=== PATIENT | female | born 1940 | race Caucasian/White ===

== ENCOUNTER 2019-09-15 13:44 | Inpatient (IN) | payer OTHER ==
--- NOTE | 2019-09-15 14:08 | PDOC ---
History of Present Illness - General Chief Complaint: Pain, Acute Stated Complaint: ABD PAIN/SWOLLEN LEGS Time Seen by Provider: 09/15/19 14:08 - History of Present Illness Initial Comments: 09/15/19 15:29 78 year old woman with a history of DM, hypothyroidism ,HTN, HLD, fibrmyalgia, asthma, arthritis who presents with 2 months of swelling in the bilateral legs and abdomen with 40 pound weight gain. The patient also reports some vaginal and rectal pain for 2 months. She denies any other complaints. Denies chest pain or shortness of breath. Patient takes hydrocodone 7.5 8x a day for fibromyalgia pain PCP: Dr. Kristen FERNANDEZ GENERAL/CONSTITUTIONAL: No fever or chills. No weakness. CARDIOVASCULAR: No chest pain or shortness of breath RESPIRATORY: No cough, wheezing, or hemoptysis. GASTROINTESTINAL: No nausea, vomiting, diarrhea or constipation. GENITOURINARY: No dysuria, frequency, or change in urination. MUSCULOSKELETAL: No joint or muscle swelling or pain. No neck or back pain. SKIN: No rash NEUROLOGIC: No headache, vertigo, loss of consciousness, or change in strength/ sensation. ENDOCRINE: No increased thirst. + abnormal weight change . PE GENERAL: Awake, alert, and fully oriented, in no acute distress HEAD: No signs of trauma, normocephalic, atraumatic EYES: EOMI, sclera anicteric, conjunctiva clear ENT: oropharynx clear without exudates. Moist mucosa NECK: Normal ROM, supple LUNGS: No distress, speaks full sentences, clear to auscultation bilaterally HEART: Regular rate and rhythm, normal S1 and S2, no murmurs, rubs or gallops, peripheral pulses normal and equal bilaterally. ABDOMEN: Soft, + 1+ edema, abd distention, firmness on suprapubic abd BREST: L breast dimpling EXTREMITIES : + 2+ pitting edema from feet to abdomen NEUROLOGICAL: Cranial nerves II through XII grossly intact. Normal speech, no focal sensorimotor deficits SKIN: Warm, Dry, normal turgor, no rashes or lesions noted GENITAL: labia majora edema, no external masses visualized RECTAL: No external hemorrhoids, good rectal tone, no masses palpated posteriorly or anteriorly on digital exam MDM DDX including but not limited to: anasarca consider mass vs electrolyte derangement r/o cardiac dysfunction ED Course: ekg with vent rate of 59bpm with complete heart block See attending note for discussion with Cardiology Dr. Kumar pacers placed, atropine ordered and at bedside patient currently hemodynamically stable case discussed with ICU [employer], will see patient CXR with L breast mass and R sided infiltrate ceftriaxone and azithromycin dosed Lisa Quevedo, PGY2 Emergency Medicine 09/15/19 16:23 09/15/19 16:26 Past History - Past Medical History Allergies/Adverse Reactions: Allergies Allergy/AdvReac Type Severity Reaction Status Date / Time No Known Allergies Allergy Verified 09/15/19 13:49 Home Medications: Ambulatory Orders Benazepril HCl [Lotensin] 40 mg PO DAILY 09/15/19 Diltiazem Cd [Cardizem Cd -] 120 mg PO DAILY 09/15/19 Hydrochlorothiazide [Hctz -] 25 mg PO DAILY 09/15/19 Levothyroxine [Synthroid -] 175 mcg PO DAILY 09/15/19 Metformin HCl [Glucophage] 0 mg PO BID 09/15/19 - Psycho Social/Smoking Cessation Hx Smoking History: Never smoked Hx Alcohol Use: No Drug/Substance Use Hx: No *Physical Exam - Vital Signs Last Vital Signs Temp Pulse Resp BP Pulse Ox 97.5 F L 60 16 121/70 96 09/15/19 13:58 09/15/19 13:58 09/15/19 13:58 09/15/19 13:58 09/15/19 13:58 ED Treatment Course - LABORATORY CBC & Chemistry Diagram: 09/15/19 15:20 09/15/19 15:20 Critical Care Total Critical Care Time (in minutes): 90 Critical Care Statement: The care of this patient involved high complexity decision making to prevent further life threatening deterioration of the patient 's condition and/or to evaluate & treat vital organ system(s) failure or risk of failure.
--- NOTE | 2019-09-15 14:35 | PDOC ---
Attending Attestation - Resident Resident Name: Lisa Quevedo - ED Attending Attestation I have performed the following: I have examined & evaluated the patient, The case was reviewed & discussed with the resident, I agree w/resident's findings & plan, Exceptions are as noted - HPI HPI: 09/15/19 16:00 78yo female with hx of htn, dm, asthma, hypothyroidism with worsening edema to the le and her abd. Pt c/o lower abd pressure and discomfort and swelling. States mammograms utd, denies vaginal bleeding or discharge. Denies dysuria. No n/v/d. C/o sob today - pt tachypnic. Pt denies cough. No f/c. States 40lb wt gain over the last 2 months. Pt denies cp. - Physicial Exam PE: 09/15/19 16:05 Gen: aaox3, tachypnic, mild resp distress heent: MMM, EOMI, no icterus neck: supple heart: +s1s2 reg lungs: coarse bs b/l bases, tachypnea abd: soft, pitting edema to above the umbilicus, mass palpated in the lower abd , pitting edema of the vulva externally ext: 4+ pitting edema to LE b/l - Critical Care Time Total Critical Care Time: 60 Critical Care Statement: The care of this patient involved high complexity decision making to prevent further life threatening deterioration of the patient 's condition and/or to evaluate & treat vital organ system(s) failure or risk of failure. - Medical Decision Making 09/15/19 16:08 a/p: 78yo female with sob and swelling from abd to toes -anasarca on exam -pelvic mass palpated - concern for poss ca -will send labs, ekg, cxr, CT abd/pelvis with iv contrast -duplex ultrasound LE -pt will need admission 09/15/19 16:13 EKG shows complete heart block - case discussed with Dr. Kumar who agrees with zol pads, checking tsh, electrolytes, ICU admission, no pacing at this time as the patient is hemodynamically stable resident discussed the case with ICU. 09/15/19 16:15 no elevated wbc hgb stable 09/15/19 16:16 RLL infilatre on cxr L breast mass on xray 09/15/19 16:18 ua neg 09/15/19 16:35 elevated tsh, free t4 will send for ct c/a/p with contrast for further eval 09/15/19 17:55 pt with anasarca ascites on ct, L breast mass on cxr, pna, chb - pt will need icu admission microblog sent to [facility] for admission 09/15/19 18:15 resident discussed the case with [facility] who accepts pt to service 09/15/19 19:16 pt with ascites and cirrhosis on ct pt admitted to the ICU Heart Score/ECG Review - ECG Intrepretation Comment:: 09/15/19 16:14 chb at 59, l axis, q waves septally, abnl ekg
[2019-09-15] MEDS ORDERED: ACETAMINOPHEN 1000 MG/100 ML VIAL (NON FORMULARY) IVPB ONE (15:31)
[2019-09-15] MEDS ORDERED: ATROPINE SULFATE 1 MG/10 ML DISP.SYRIN IVPUSH ONE (15:32)
[2019-09-15] MEDS ORDERED: ATROPINE SULFATE 1 MG/10 ML DISP.SYRIN ONE (15:33)
[2019-09-15] MEDS ORDERED: ACETAMINOPHEN INJECTION 100 ML IVPB ONE (15:34)
[2019-09-15 15:35] LABS: VENOUS PC02 44.4 mmHg (38-52); VENOUS PH 7.37 (7.31-7.41)
[2019-09-15 15:36] LABS: VENOUS PO2 < 49 mmHg (28-48)
[2019-09-15 15:40] LABS: BASO % 1.1 % (0-2.0); HEMATOCRIT 35.7 % (32.4-45.2); HEMOGLOBIN 12.4 GM/dL (10.7-15.3); LYMPH % 13.2 % (8-40); MCH 34.1 pg (25.7-33.7); MCHC 34.6 g/dl (32.0-36.0); MEAN CELL VOLUME 98.4 fl (80-96); MEAN PLT VOLUME 8.8 fl (7.5-11.1); MONO % 4.5 % (3.8-10.2); NEUT % 80.2 % (42.8-82.8); PLATELET COUNT 284 K/MM3 (134-434); RBC 3.63 M/mm3 (3.60-5.2); WHITE BLOOD COUNT 7.8 K/mm3 (4.0-10.0)
[2019-09-15 15:56] LABS: INR 1.03 (0.83-1.09); PROTHROMBIN TIME (PATIENT) 12.2 SEC (9.7-13.0)
[2019-09-15] MEDS ORDERED: morphine CARPU-JECT 2 MG/1 ML DISP.SYRIN IVPUSH ONE (15:58)
[2019-09-15 15:59] LABS: ACTIVATED PTT 34.2 SECONDS (25.2-36.5)
[2019-09-15 16:14] LABS: EPI CELLS 0.3 /HPF (0-5/HPF); HYALINE CASTS 0 /lpf (0-8); URINE APPEARANCE CLEAR; URINE BACTERIA 0.7 /hpf (NEGATIVE); URINE BILIRUBIN NEGATIVE (NEGATIVE); URINE COLOR YELLOW; URINE GLUCOSE (UA) NEGATIVE (NEGATIVE); URINE KETONE NEGATIVE (NEGATIVE); URINE LEUK ESTERASE NEGATIVE (NEGATIVE); URINE NITRITE NEGATIVE (NEGATIVE); URINE PROTEIN 2+ (NEGATIVE); URINE RBC 1 /hpf (0-4); URINE UROBILINOGEN 0.2 mg/dL (0.2-1.0); URINE WBC 0 /hpf (0-5)
[2019-09-15] MEDS ORDERED: MORPHINE SULFATE 2 MG/ML VIAL ONE (16:15)
[2019-09-15] MEDS ORDERED: CEFTRIAXONE 1 GM in DEXTROSE 5%-WATER - 50 ML IVPB ONE (16:15)
[2019-09-15] MEDS ORDERED: AZITHROMYCIN IVPB 500 MG in DEXTROSE 5%-WATER - 250 ML IVPB ONE (16:16)
[2019-09-15 16:24] LABS: ALBUMIN 2.9 g/dl (3.4-5.0); BILIRUBIN,TOTAL 0.6 mg/dL (0.2-1); BLOOD UREA NITROGEN 30.4 mg/dL (7-18); CALCIUM 8.6 mg/dL (8.5-10.1); MAGNESIUM 2.1 mg/dL (1.8-2.4); PHOSPHOROUS 3.9 mg/dL (2.5-4.9); POTASSIUM 5.6 mmol/L (3.5-5.1); TOT PROT 7.1 g/dl (6.4-8.2)
[2019-09-15] MEDS ORDERED: CEFTRIAXONE 1 GM/50 ML BAG ONE (16:26)
[2019-09-15] MEDS ORDERED: AZITHROMYCIN IVPB 500 MG/250 ML BAG IVPB ONE (16:50)
[2019-09-15 17:25] LABS: ALBUMIN 2.9 g/dl (3.4-5.0); BILIRUBIN,TOTAL 0.4 mg/dL (0.2-1); BLOOD UREA NITROGEN 29.3 mg/dL (7-18); CALCIUM 8.5 mg/dL (8.5-10.1); POTASSIUM 4.2 mmol/L (3.5-5.1)
[2019-09-15] MEDS ORDERED: LOSARTAN POTASSIUM 50 MG TABLET (FP) PO ONE (18:11)
[2019-09-15] MEDS ORDERED: HYDROCHLOROTHIAZIDE 25 MG TABLET (FP) PO SCH (18:15)
[2019-09-15] MEDS ORDERED: METOCLOPRAMIDE HCL 10 MG TABLET (FP) PO PRN (18:59)
[2019-09-15] MEDS ORDERED: FUROSEMIDE 40 MG/4 ML INJECTABLE VIAL ONE (19:04)
[2019-09-15] MEDS: FUROSEMIDE 40 MG/4 ML INJECTABLE VIAL IVPUSH SCH (19:10)
[2019-09-15] MEDS ORDERED: LOSARTAN POTASSIUM 50 MG TABLET (FP) ONE (19:12)
[2019-09-15 19:15] LABS: ARTERIAL BLD GAS O2 SATURATION 95.3 % (95-98); ARTERIAL BLOOD GAS BASE EXCESS -2.8 meq/l (-2-2); ARTERIAL BLOOD GAS PCO2 40.1 mmHg (35-45); ARTERIAL BLOOD GAS PO2 84.5 mmHg (80-100); ARTERIAL BLOOD GAS pH 7.36 (7.35-7.45); CARBOXYHEMOGLOBIN 1.4 % (0-2)
[2019-09-15 19:16] LABS: ALLENS TEST POSITIVE
--- NOTE | 2019-09-15 19:53 | HP ---
Admitting History and Physical - Primary Care Physician PCP: aMnas Espitia - Admission Chief Complaint: Generalized edema, shortness of breath History of Present Illness: 78 year old woman with a history of DM II (on metformin), hypothyroidism ,HTN, HLD, fibromyalgia, asthma, osteoarthritis presents to ED with c/o body aches, rapid weight gain (25lbs in 1mth) and SOB. Ms. Calvillo reports significant weight loss 2-3 months ago, followed by rapid water retention associated with mild shortness of breath over the last 60days. Her volume overload and dyspnea worsened and included chest discomfort, lower back pain and reduced ability to perform ADLs, therefore, she decided to present to ED for evaluation. She denies N/V/D/ fever/chills. No sick contacts or recent travel. In ED: vitals: HR 56bpm, BP196/76, RR 26. O2 sat 96% 2L NC. Ekg:L SB- vent rate of 59bpm with complete heart block, Cardiology (Dr. Kumar ) consulted. Recommend ICu admission with pacers pads in place, atropine at bedside CXR with mild congestive findings and some atelectasis or infiltrate at the right base; pt dosed ceftriaxone and azithromycin. CT abd with constrast ordered to evaluate for pelvic mass on exam AB.36/40/84.5/22/95% TSH 32, T4F 1.2 Trop neg, CK-MB 3.7 BNP 1220 pt ordered for lasix 40mg Q8hrs and nebs for c/o SOB History Source: Patient Limitations to Obtaining History: Clinical Condition, Poor Historian - Past Medical History Cardiovascular: Yes: HTN Pulmonary: Yes: Asthma Reproductive: Yes: Postmenopausal ...: No Musculoskeletal: Yes: Chronic low back pain, Osteoarthritis Rheumatology: Yes: Fibromyalgia Endocrine: Yes: Diabetes Mellitus, Hypothyroidism - Past Surgical History Past Surgical History: Yes: Cholecystectomy - Advance Directives Advance Directives: Yes: Health Care Proxy (daughter: Susan Calvillo ) - Smoking History Smoking history: Never smoked Have you smoked in the past 12 months: Yes Aproximately how many cigarettes per day: 20 (1PPD x 50yrs) - Alcohol/Substance Use Hx Alcohol Use: No History of Substance Use: reports: None - Social History Usual Living Arrangement: Yes: Alone ADL: Independent Occupation: retired History of Recent Travel: No Other Social History: Born in [place] Home Medications - Allergies Allergies/Adverse Reactions: Allergies Allergy/AdvReac Type Severity Reaction Status Date / Time No Known Allergies Allergy Verified 09/15/19 13:49 - Home Medications Home Medications: Ambulatory Orders Benazepril HCl [Lotensin] 40 mg PO DAILY 09/15/19 Diltiazem Cd [Cardizem Cd -] 120 mg PO DAILY 09/15/19 Hydrochlorothiazide [Hctz -] 25 mg PO DAILY 09/15/19 Levothyroxine [Synthroid -] 175 mcg PO DAILY 09/15/19 Metformin HCl [Glucophage] 0 mg PO BID 09/15/19 Family Medical History Family Hx Cardiac Disorders: Mother ( age 67) Family Hx Diabetes: Mother (Father (60s) Leukemia) Other Family History: Brother (30s) Liver disease. Brother ( 50s0 Liver diease. sister (66) Alzheimers Review of Systems - Review of Systems Constitutional: reports: Lethargy, Weakness Eyes: reports: No Symptoms HENT: reports: Nasal Congestion Neck: reports: No Symptoms Cardiovascular: reports: Chest Pain, Edema, Shortness of Breath Respiratory: reports: Cough, SOB, Wheezing Gastrointestinal: reports: Abdominal Pain Genitourinary: reports: No Symptoms Breasts: reports: No Symptoms Reported Musculoskeletal: reports: Back Pain, Joint Pain, Muscle Weakness Integumentary: reports: Erythema Neurological: reports: Weakness Endocrine: reports: Unexplained Weight Gain Physical Examination Vital Signs: Vital Signs Temperature 97.5 F L 09/15/19 13:58 Pulse Rate 50 L 09/15/19 19:11 Respiratory Rate 21 H 09/15/19 19:11 Blood Pressure 179/93 H 09/15/19 19:11 O2 Sat by Pulse Oximetry (%) 97 09/15/19 19:11 Constitutional: Yes: Anxious, Mild Distress Eyes: Yes: Conjunctiva Clear, PERRL HENT: Yes: Atraumatic, Normocephalic Neck: Yes: Supple Cardiovascular: Yes: Bradycardia, S1, S2 Respiratory: Yes: Cough, On Nasal O2, SOB, Wheezes Gastrointestinal: Yes: Ascites, Hyperactive Bowel Sounds, Tenderness ...Rectal Exam: Yes: Deferred Renal/: Yes: Wiggins Present Musculoskeletal: Yes: Muscle Weakness Extremities: Yes: Cool, Erythema (RLE) Edema: Yes Edema: LLE: 3+, RLE: 3+ Peripheral Pulses WNL: Yes Peripheral Pulses: Left Radial: 2+, Right Radial: 2+, Left Doralis Pedis: 2+, Right Dorsalis Pedis: 2+, Left Femoral: 2+, Right Femoral: 2+ Integumentary: Yes: Erythema (suprapubic tenderness) Neurological: Yes: Alert, Oriented ...Motor Strength: WNL Psychiatric: Yes: Alert, Oriented Labs: CBC, BMP 09/15/19 15:20 09/15/19 16:30 Imaging - Results Chest X-ray: Report Reviewed (CXR 09/15/2019 Chest: Fluid overload Single AP view of the chest reveals a large heart, sclerotic knob, intact bones and soft tissues, mild congestive findings and some atelectasis or infiltrate at the right base. The angles are sharp and the soft tissues are intact. There is slight elevation of the right hemidiaphragm. There is a focal area of increased density in the left breast. Exact nature of this is unclear. Correlation recommended. There are no prior studies for comparison. Follow-up recommended.) Cat Scan: Report Reviewed (CTA chest/abd/pelvis 09/15/2019 (Report obtained via Fax from imaging socially responsible investment adviser) Impression: No thoracic aortic aneurysm or mediastinal hematoma found. No Pulm embolism seen. Scattered mild atelectasis and ground glass opacities. Moderate right pleural effusion. no RP hematoma seen. Diffuse body wall edema. Ascites present Heterogenous liver with lobulated liver, consider cirrhosis and cannot exclude liver masses. Dilated portal vein 17mm and umbilical veins seen, compatible with portal hypertension. GB not well seen. CBD appears dialted up to 15mm. Mild RP adenopathy Read by Dr. Leighton Cooper.) EKG: Report Reviewed (EKG 09/15/2019 SB 59bpm, CHB, low voltage, PRWP.) Problem List - Problems (1) Volume overload Assessment/Plan: Lasix 40mg TID, goal net neg 1-1.5L daily daily CXR wiggins care and maintenance strict intake and output daily 6am weights Echo ordered cardiology consulted Problems reviewed: Yes Code(s): E87.70 - FLUID OVERLOAD, UNSPECIFIED (2) Prophylactic measure Assessment/Plan: H2B daily Heparin SC TID OOB to chair as tolerated Bowel regimen with senna/colace reglan PRN nausea/vomiting Code(s): Z29.9 - ENCOUNTER FOR PROPHYLACTIC MEASURES, UNSPECIFIED (3) HTN (hypertension) Assessment/Plan: Hold cardizem and GILMER, elevated BP is most likely compensatory trend BPs off meds Code(s): I10 - ESSENTIAL (PRIMARY) HYPERTENSION (4) DMII (diabetes mellitus, type 2) Assessment/Plan: hold metformin Fingerstick ACHS insulin SS diabetic-cardiac diet lipid panel and A1c with AM labs Code(s): E11.9 - TYPE 2 DIABETES MELLITUS WITHOUT COMPLICATIONS (5) Heart block, AV Assessment/Plan: cardiology following Pacer pads on patient Atropine at bedside BP elevated, if pt with symptomatic HB can trial dopamine infusion continuous tele monitoring avoid sadiq agents Code(s): I44.30 - UNSPECIFIED ATRIOVENTRICULAR BLOCK (6) Asthma Assessment/Plan: duonebs q6hrs Code(s): J45.909 - UNSPECIFIED ASTHMA, UNCOMPLICATED (7) Hypothyroidism Assessment/Plan: TSH 32, endo consulted Synthroid increased to 200mcg from 175mcg Code(s): E03.9 - HYPOTHYROIDISM, UNSPECIFIED (8) Atelectasis of right lung Assessment/Plan: zosyn q8hrs Azith 250mg IVPB x 4 more days send sputum culture Code(s): J98.11 - ATELECTASIS (9) Tobacco dependence Assessment/Plan: smoking cessation discussed with patient Code(s): F17.200 - NICOTINE DEPENDENCE, UNSPECIFIED, UNCOMPLICATED (10) Chronic pain Assessment/Plan: Tylenol PRN moderate pain Morphine PRN severe pain PT evaluation when stable Problems reviewed: Yes Code(s): G89.29 - OTHER CHRONIC PAIN Assessment/Plan Codes status: FUll Pt requires inpatient ICU care Visit type - Emergency Visit Emergency Visit: Yes ED Registration Date: 09/15/19 Care time: The patient presented to the Emergency Department on the above date and was hospitalized for further evaluation of their emergent condition. - New Patient This patient is new to me today: Yes Date on this admission: 09/16/19 - Critical Care Critical Care patient: Yes Total Critical Care Time (in minutes): 70 Critical Care Statement: The care of this patient involved high complexity decision making to prevent further life threatening deterioration of the patient 's condition and/or to evaluate & treat vital organ system(s) failure or risk of failure.
[2019-09-15] MEDS ORDERED: SODIUM CHLORIDE NASAL SPRAY 44 ML BOTTLE NS PRN (20:07)
--- NOTE | 2019-09-15 20:43 | CONSULT ---
Consult - text type - Consultation Consultation Note: PULMONARY/CRITICAL CARE CONSULT NOTE: HPI: Briefly, 78 F DM2, hypothyroid, HTN, asthma, OA, fibromyalgia and chronic pain presented to ED with increased SOB and LE edema. Found to be in CHB with HR in 50s. BP was normal, trop neg, e-lytes normal, TFTs normal, temp normal. She has a R pleural effusion and was started on abx, however there are no clinical signs of pneumonia. She had a palpable pelvic mass and the plan was for abdomen and pelvic imaging - yet to be done. Cardiology was consulted. She was admitted to the ICU for monitoring. Current Medications Acetaminophen (Tylenol -) 650 mg PO Q6H PRN PRN Reason: PAIN LEVEL 4 - 6 Albuterol/Ipratropium (Duoneb -) 1 amp NEB RQID CARLOS Chlorhexidine Gluconate (Hibiclens For Decolonization -) 1 applic TP HS CARLOS Docusate Sodium (Colace -) 100 mg PO BID CARLOS Famotidine (Pepcid -) 20 mg PO DAILY [facility] Furosemide (Lasix Injection -) 40 mg IVPUSH 0600,1400,2000 [facility] Last Admin: 09/15/19 19:10 Dose: 40 mg Heparin Sodium (Porcine) (Heparin -) 5,000 unit SQ TID [facility] Azithromycin 250 mg/ Dextrose 250 mls @ 250 mls/hr IVPB DAILY ONE Stop: 09/16/19 09:59 Piperacillin Sod/Tazobactam (Sod 3.375 gm/ Dextrose) 50 mls @ 100 mls/hr IVPB Q8H-IV [facility]; Protocol Piperacillin Sod/Tazobactam (Sod 3.375 gm/ Dextrose) 50 mls @ 100 mls/hr IVPB Q8H-IV [facility]; Protocol Stop: 09/16/19 10:29 Insulin Aspart (Novolog Vial Sliding Scale -) 1 vial SQ ACHS [facility]; Protocol Levothyroxine Sodium (Synthroid -) 200 mcg PO 0700 [facility] Losartan Potassium (Cozaar -) 50 mg PO DAILY [facility] Metoclopramide HCl (Reglan -) 10 mg PO TID PRN PRN Reason: NAUSEA AND/OR VOMITING Morphine Sulfate (Morphine Sulfate) 2 mg IVPUSH Q6H PRN PRN Reason: PAIN LEVEL 7 - 10 Mupirocin (Bactroban Ointment (For Decolonization) -) 1 applic NS BID CARLOS Stop: 09/20/19 21:59 Senna (Senna -) 2 tab PO HS CARLOS Sodium Chloride ([place]al [place] -) 2 spray NS TID PRN PRN Reason: NASAL CONGESTION Vital Signs Temp 97.5 F L 09/15/19 13:58 Pulse 50 L 09/15/19 19:11 Resp 21 H 09/15/19 19:11 BP 179/93 H 09/15/19 19:11 Pulse Ox 97 09/15/19 19:11 Intake & Output 09/15/19 09/15/19 09/16/19 06:59 18:59 05:59 Output Total 200 Balance -200 Weight 73.391 kg Output: Urine 200 Garg 200 Other: Height 5 ft Body Mass Index (BMI) 31.6 Weight Measurement Method Est/Stated by Patient EXAM: neuro: alert lungs: diminished abd: softly distended ext: edema skin: warm CBC, BMP 09/15/19 15:20 09/15/19 16:30 ASSESSMENT: CHB of unclear etiology DM2 Hypothyroid HTN Asthma OA Fibromyalgia Chronic pain PLAN: -Cardiology to see in AM -Will not have TVP - have pacing pads on and connected to monitor at all times -Atropine is not effective in CHB - will use external pacing and Dopa or Epi if decompensates -Consider stopping abx - do not believe she is infected. No infiltrate on CT. R pleural effusion may be related to pelvic/abdominal mass, ?malignant. -f/u abdomen/pelvic imaging -Continue home medications -DVT PPx Patient is critically ill Thank you for this interesting consult Lazarus Marcial Pulm/Critical Care INTERVENTIONAL CARDIOLOGIST
[2019-09-15] MEDS: ALBUTEROL SO4 2.5/IPRATROPIUM 0.5 INH SOL 3 ML VIAL.NEB. NEB SCH (20:53)
[2019-09-15] MEDS ORDERED: SENNOSIDES/DOCUSATE COMBO (SENNA PLUS) TABLET (UD) PO SCH (22:00)
[2019-09-15] MEDS: HEPARIN NA (PORCINE) 5,000 UNITS/ML 1ML VIAL SQ SCH (23:33)
[2019-09-15] MEDS: DOCUSATE SODIUM 100 MG CAPSULE (FP) PO SCH (23:34)
[2019-09-15] MEDS: MUPIROCIN 2% TOPICAL OINTMENT FOR DECOLONIZATION NS SCH (23:35)
[2019-09-15] MEDS: CHLORHEXIDINE GLUCONATE 4% CLEANSER FOR DECOLONIZATION TP SCH (23:35)
[2019-09-15] MEDS: SENNOSIDES 8.6MG TABLET (FP) PO SCH (23:36)
[2019-09-15] MEDS: INSULIN SLIDING SCALE (NOVOLOG) 1 VIAL SQ SCH (23:36)
[2019-09-16] MEDS: PIPERACILLIN/TAZOB 3.375 GM 3.375 GM in DEXTROSE 5%-WATER - 50 ML IVPB SCH ×2 (01:02→09:34)
[2019-09-16] MEDS ORDERED: PIPERACILLIN/TAZOBACTAM 3.375 GM VIAL IVPB ONE ×2 (01:29→08:42)
[2019-09-16] MEDS ORDERED: DEXTROSE 5%-WATER - 50 ML IVPB ONE ×2 (01:29→08:43)
[2019-09-16] MEDS ORDERED: PIPERACILLIN/TAZOB 3.375 GM 3.375 GM in DEXTROSE 5%-WATER - 50 ML IVPB SCH (02:00)
[2019-09-16] MEDS: MORPHINE SULFATE 2 MG/ML VIAL IVPUSH PRN ×4 (03:36→22:15)
[2019-09-16] MEDS ORDERED: hydrALAZINE HCL 20 MG/ML VIAL IVPUSH ONE (05:24)
[2019-09-16] MEDS: FUROSEMIDE 40 MG/4 ML INJECTABLE VIAL IVPUSH SCH ×3 (06:21→20:55)
[2019-09-16] MEDS: HEPARIN NA (PORCINE) 5,000 UNITS/ML 1ML VIAL SQ SCH ×3 (06:22→22:20)
[2019-09-16] MEDS: INSULIN SLIDING SCALE (NOVOLOG) 1 VIAL SQ SCH ×4 (06:23→22:41)
[2019-09-16] MEDS: LEVOTHYROXINE NA 200 MCG TABLET PO SCH (06:25)
[2019-09-16] MEDS: ALBUTEROL SO4 2.5/IPRATROPIUM 0.5 INH SOL 3 ML VIAL.NEB. NEB SCH ×4 (07:08→19:56)
[2019-09-16 07:54] LABS: INR 1.05 (0.83-1.09); PROTHROMBIN TIME (PATIENT) 12.4 SEC (9.7-13.0)
[2019-09-16 07:57] LABS: ACTIVATED PTT 33.9 SECONDS (25.2-36.5)
[2019-09-16 08:22] LABS: ALBUMIN 2.4 g/dl (3.4-5.0); BILIRUBIN,TOTAL 0.5 mg/dL (0.2-1); BLOOD UREA NITROGEN 24.6 mg/dL (7-18); CALCIUM 8.4 mg/dL (8.5-10.1); CREATININE 0.9 mg/dL (0.55-1.3); TOT PROT 5.8 g/dl (6.4-8.2)
[2019-09-16] MEDS ORDERED: PT OWN MED DRAWER 7, Y5N ONE (08:42)
[2019-09-16] MEDS ORDERED: AZITHROMYCIN IVPB 250 MG in DEXTROSE 5%-WATER - 250 ML IVPB ONE (09:00)
[2019-09-16] MEDS: DOCUSATE SODIUM 100 MG CAPSULE (FP) PO SCH ×2 (09:01→22:20)
[2019-09-16] MEDS: FAMOTIDINE 20 MG TABLET PO SCH (09:02)
[2019-09-16] MEDS: MUPIROCIN 2% TOPICAL OINTMENT FOR DECOLONIZATION NS SCH ×2 (09:02→22:20)
[2019-09-16] MEDS: AZITHROMYCIN IVPB 250 MG in DEXTROSE 5%-WATER - 250 ML IVPB SCH (09:17)
--- NOTE | 2019-09-16 09:46 | PN ---
Physical Exam: SUBJECTIVE: Patient seen and examined in the icu. eating breakfast. verbalizes shortness of breat with any physical movement. on 2-3 liters of oxygen. she smokes daily. has been told she had a mass in her left breast years ago, had a biopsy and was negative. spoke to daughter sebas and updated her. OBJECTIVE: Patient is a 78 year old female with a significant past medical history of current every day smoker, DM II (on metformin), hypothyroidism , hypertension, HLD, fibromyalgia, asthma, osteoarthritis presents to ED with c/o body aches, rapid weight gain and SOB. Patient reports significant weight loss 2-3 months ago, followed by rapid water retention associated with mild shortness of breath over the last 60 days. Her volume overload and dyspnea worsened and included chest discomfort and she presented to the ED for further evaluation. imaging: Ekg: L SB-vent rate of 59 bpm with complete heart block CXR with mild congestive findings and some atelectasis or infiltrate at the right base CT abd with contrast ordered and pending Vital Signs Period Temp Pulse Resp BP Sys/[place] Pulse Ox Last 24 Hr 97.5 F-98.4 F 50-71 12-64 121-200/49-95 96-99 GENERAL: The patient is awake, alert, and fully oriented, in mild respiratory distress HEAD: Normal with no signs of trauma. EYES: PERRL, extraocular movements intact, sclera anicteric, conjunctiva clear. No ptosis. ENT: Ears normal, nares patent, oropharynx clear without exudates, moist mucous membranes. NECK: Trachea midline, full range of motion, supple. LUNGS: fine crackles at bilateral bases. on 2 liters of supplemental oxygen HEART: Regular rate and rhythm, S1, S2 without murmur, rub or gallop. ABDOMEN: obese abdomen, likely has ascites, with a hard mass felt on RUQ. EXTREMITIES: edema +3 from upper thighs to ankles. NEUROLOGICAL: Normal speech, gait not observed. PSYCH: Normal mood, normal affect. SKIN: Warm, dry, normal turgor, no rashes or lesions noted Laboratory Results - last 24 hr 09/15/19 09/15/19 09/15/19 15:20 15:20 15:20 WBC 7.8 RBC 3.63 Hgb 12.4 Hct 35.7 MCV 98.4 H MCH 34.1 H MCHC 34.6 RDW 14.0 Plt Count 284 MPV 8.8 Absolute Neuts (auto) 6.2 Neutrophils % 80.2 Lymphocytes % 13.2 Monocytes % 4.5 Eosinophils % 1.0 Basophils % 1.1 Nucleated RBC % 0 ESR PT with INR 12.20 INR 1.03 PTT (Actin FS) 34.2 Anticoagulation Therapy Puncture Site ABG pH ABG pCO2 at Pt Temp ABG pO2 at Pt Temp ABG HCO3 ABG O2 Sat (Measured) ABG O2 Content ABG Base Excess [place] Test VBG pH POC VBG pCO2 POC VBG pO2 VBG HCO3 VBG O2 Sat (Lena) VBG Base Excess Carboxyhemoglobin Methemoglobin O2 Delivery Device Oxygen Flow Rate Vent Mode Vent Rate Mechanical Rate Pressure Support Vent Sodium Potassium Chloride Carbon Dioxide Anion Gap BUN Creatinine Est GFR (CKD-EPI)AfAm Est GFR (CKD-EPI)NonAf POC Glucometer Random Glucose Hemoglobin A1c % Lactic Acid Calcium Phosphorus Magnesium Total Bilirubin AST ALT Alkaline Phosphatase Creatine Kinase 178 Creatine Kinase Index 2.0 CK-MB (CK-2) 3.7 H Troponin I < 0.02 B-Natriuretic Peptide Total Protein Albumin Triglycerides Cholesterol Total LDL Cholesterol HDL Cholesterol TSH Free T4 Urine Color Urine Appearance Urine pH Ur Specific Vaughn Urine Protein Urine Glucose (UA) Urine Ketones Urine Blood Urine Nitrite Urine Bilirubin Urine Urobilinogen Ur Leukocyte Esterase Urine WBC (Auto) Urine RBC (Auto) Urine Casts (Auto) U Epithel Cells (Auto) Urine Bacteria (Auto) Blood Type Antibody Screen 09/15/19 09/15/19 09/15/19 15:20 15:20 15:20 WBC RBC Hgb Hct MCV MCH MCHC RDW Plt Count MPV Absolute Neuts (auto) Neutrophils % Lymphocytes % Monocytes % Eosinophils % Basophils % Nucleated RBC % ESR PT with INR INR PTT (Actin FS) Anticoagulation Therapy Puncture Site ABG pH ABG pCO2 at Pt Temp ABG pO2 at Pt Temp ABG HCO3 ABG O2 Sat (Measured) ABG O2 Content ABG Base Excess [place] Test VBG pH 7.37 POC VBG pCO2 44.4 POC VBG pO2 < 49 H VBG HCO3 24.8 VBG O2 Sat (Lena) 51.1 L VBG Base Excess -0.2 Carboxyhemoglobin Methemoglobin O2 Delivery Device Oxygen Flow Rate Vent Mode Vent Rate Mechanical Rate Pressure Support Vent Sodium 134 L Potassium 5.6 H Chloride 106 Carbon Dioxide 24 Anion Gap 4 L BUN 30.4 H Creatinine 1.0 Est GFR (CKD-EPI)AfAm 62.93 Est GFR (CKD-EPI)NonAf 54.30 POC Glucometer Random Glucose 194 H Hemoglobin A1c % Lactic Acid Calcium 8.6 Phosphorus 3.9 Magnesium 2.1 Total Bilirubin 0.6 AST 53 H ALT 30 Alkaline Phosphatase 233 H Creatine Kinase Creatine Kinase Index CK-MB (CK-2) Troponin I B-Natriuretic Peptide 1220.0 H Total Protein 7.1 Albumin 2.9 L Triglycerides Cholesterol Total LDL Cholesterol HDL Cholesterol TSH 32.80 H Free T4 Urine Color Urine Appearance Urine pH Ur Specific Vaughn Urine Protein Urine Glucose (UA) Urine Ketones Urine Blood Urine Nitrite Urine Bilirubin Urine Urobilinogen Ur Leukocyte Esterase Urine WBC (Auto) Urine RBC (Auto) Urine Casts (Auto) U Epithel Cells (Auto) Urine Bacteria (Auto) Blood Type A POSITIVE Antibody Screen Negative 09/15/19 09/15/19 09/15/19 16:04 16:30 19:03 WBC RBC Hgb Hct MCV MCH MCHC RDW Plt Count MPV Absolute Neuts (auto) Neutrophils % Lymphocytes % Monocytes % Eosinophils % Basophils % Nucleated RBC % ESR PT with INR INR PTT (Actin FS) Anticoagulation Therapy No Result Required. Puncture Site Left radial ABG pH 7.36 ABG pCO2 at Pt Temp 40.1 ABG pO2 at Pt Temp 84.5 ABG HCO3 21.9 L ABG O2 Sat (Measured) 95.3 ABG O2 Content 15.2 ABG Base Excess -2.8 L [place] Test Positive VBG pH POC VBG pCO2 POC VBG pO2 VBG HCO3 VBG O2 Sat (Lena) VBG Base Excess Carboxyhemoglobin 1.4 Methemoglobin < 1.0 O2 Delivery Device N/c Oxygen Flow Rate 2 Vent Mode No Result Required. Vent Rate No Result Required. Mechanical Rate No Result Required. Pressure Support Vent No Result Required. Sodium 138 Potassium 4.2 Chloride 104 Carbon Dioxide 25 Anion Gap 8 BUN 29.3 H Creatinine 1.0 Est GFR (CKD-EPI)AfAm 62.93 Est GFR (CKD-EPI)NonAf 54.30 POC Glucometer Random Glucose 181 H Hemoglobin A1c % Lactic Acid Calcium 8.5 Phosphorus Magnesium Total Bilirubin 0.4 AST 35 ALT 28 Alkaline Phosphatase 238 H Creatine Kinase Creatine Kinase Index CK-MB (CK-2) Troponin I B-Natriuretic Peptide Total Protein 7.0 Albumin 2.9 L Triglycerides Cholesterol Total LDL Cholesterol HDL Cholesterol TSH Free T4 1.20 Urine Color Yellow Urine Appearance Clear Urine pH 6.0 Ur Specific Vaughn 1.018 Urine Protein 2+ H Urine Glucose (UA) Negative Urine Ketones Negative Urine Blood Negative Urine Nitrite Negative Urine Bilirubin Negative Urine Urobilinogen 0.2 Ur Leukocyte Esterase Negative Urine WBC (Auto) 0 Urine RBC (Auto) 1 Urine Casts (Auto) 0 U Epithel Cells (Auto) 0.3 Urine Bacteria (Auto) 0.7 Blood Type Antibody Screen 09/15/19 09/15/19 09/15/19 20:01 20:01 20:01 WBC RBC Hgb Hct MCV MCH MCHC RDW Plt Count MPV Absolute Neuts (auto) Neutrophils % Lymphocytes % Monocytes % Eosinophils % Basophils % Nucleated RBC % ESR 79 H PT with INR INR PTT (Actin FS) Anticoagulation Therapy Puncture Site ABG pH ABG pCO2 at Pt Temp ABG pO2 at Pt Temp ABG HCO3 ABG O2 Sat (Measured) ABG O2 Content ABG Base Excess [place] Test VBG pH POC VBG pCO2 POC VBG pO2 VBG HCO3 VBG O2 Sat (Lena) VBG Base Excess Carboxyhemoglobin Methemoglobin O2 Delivery Device Oxygen Flow Rate Vent Mode Vent Rate Mechanical Rate Pressure Support Vent Sodium Potassium Chloride Carbon Dioxide Anion Gap BUN Creatinine Est GFR (CKD-EPI)AfAm Est GFR (CKD-EPI)NonAf POC Glucometer Random Glucose Hemoglobin A1c % Lactic Acid 1.2 Calcium Phosphorus Magnesium Total Bilirubin AST ALT Alkaline Phosphatase Creatine Kinase Creatine Kinase Index CK-MB (CK-2) Troponin I B-Natriuretic Peptide 1359.8 H Total Protein Albumin Triglycerides Cholesterol Total LDL Cholesterol HDL Cholesterol TSH Free T4 Urine Color Urine Appearance Urine pH Ur Specific [place] Urine Protein Urine Glucose (UA) Urine Ketones Urine Blood Urine Nitrite Urine Bilirubin Urine Urobilinogen Ur Leukocyte Esterase Urine WBC (Auto) Urine RBC (Auto) Urine Casts (Auto) U Epithel Cells (Auto) Urine Bacteria (Auto) Blood Type Antibody Screen 09/15/19 09/16/19 09/16/19 20:25 05:35 05:36 WBC RBC Hgb Hct MCV MCH MCHC RDW Plt Count MPV Absolute Neuts (auto) Neutrophils % Lymphocytes % Monocytes % Eosinophils % Basophils % Nucleated RBC % ESR PT with INR 12.40 INR 1.05 PTT (Actin FS) 33.9 Anticoagulation Therapy Puncture Site ABG pH ABG pCO2 at Pt Temp ABG pO2 at Pt Temp ABG HCO3 ABG O2 Sat (Measured) ABG O2 Content ABG Base Excess [place] Test VBG pH POC VBG pCO2 POC VBG pO2 VBG HCO3 VBG O2 Sat (Lena) VBG Base Excess Carboxyhemoglobin Methemoglobin O2 Delivery Device Oxygen Flow Rate Vent Mode Vent Rate Mechanical Rate Pressure Support Vent Sodium 138 Potassium 4.0 Chloride 106 Carbon Dioxide 25 Anion Gap 7 L BUN 24.6 H Creatinine 0.9 Est GFR (CKD-EPI)AfAm 71.48 Est GFR (CKD-EPI)NonAf 61.67 POC Glucometer Random Glucose 162 H Hemoglobin A1c % Lactic Acid Calcium 8.4 L Phosphorus Magnesium Total Bilirubin 0.5 AST 27 ALT 23 Alkaline Phosphatase 191 H Creatine Kinase Creatine Kinase Index CK-MB (CK-2) Troponin I 0.02 B-Natriuretic Peptide Total Protein 5.8 L Albumin 2.4 L Triglycerides 81 Cholesterol 154 Total LDL Cholesterol 87 HDL Cholesterol 59 TSH 31.70 H Free T4 Urine Color Urine Appearance Urine pH Ur Specific [place] Urine Protein Urine Glucose (UA) Urine Ketones Urine Blood Urine Nitrite Urine Bilirubin Urine Urobilinogen Ur Leukocyte Esterase Urine WBC (Auto) Urine RBC (Auto) Urine Casts (Auto) U Epithel Cells (Auto) Urine Bacteria (Auto) Blood Type A POSITIVE Antibody Screen 09/16/19 09/16/19 05:36 05:50 WBC RBC Hgb Hct MCV MCH MCHC RDW Plt Count MPV Absolute Neuts (auto) Neutrophils % Lymphocytes % Monocytes % Eosinophils % Basophils % Nucleated RBC % ESR PT with INR INR PTT (Actin FS) Anticoagulation Therapy Puncture Site ABG pH ABG pCO2 at Pt Temp ABG pO2 at Pt Temp ABG HCO3 ABG O2 Sat (Measured) ABG O2 Content ABG Base Excess [place] Test VBG pH POC VBG pCO2 POC VBG pO2 VBG HCO3 VBG O2 Sat (Lena) VBG Base Excess Carboxyhemoglobin Methemoglobin O2 Delivery Device Oxygen Flow Rate Vent Mode Vent Rate Mechanical Rate Pressure Support Vent Sodium Potassium Chloride Carbon Dioxide Anion Gap BUN Creatinine Est GFR (CKD-EPI)AfAm Est GFR (CKD-EPI)NonAf POC Glucometer 156 Random Glucose Hemoglobin A1c % 7.1 H Lactic Acid Calcium Phosphorus Magnesium Total Bilirubin AST ALT Alkaline Phosphatase Creatine Kinase Creatine Kinase Index CK-MB (CK-2) Troponin I B-Natriuretic Peptide Total Protein Albumin Triglycerides Cholesterol Total LDL Cholesterol HDL Cholesterol TSH Free T4 Urine Color Urine Appearance Urine pH Ur Specific [place] Urine Protein Urine Glucose (UA) Urine Ketones Urine Blood Urine Nitrite Urine Bilirubin Urine Urobilinogen Ur Leukocyte Esterase Urine WBC (Auto) Urine RBC (Auto) Urine Casts (Auto) U Epithel Cells (Auto) Urine Bacteria (Auto) Blood Type Antibody Screen Active Medications Generic Name Dose Route Start Last Admin Trade Name Freq PRN Reason Stop Dose Admin Acetaminophen 650 mg 09/15/19 18:13 Tylenol - PO Q6H PRN PAIN LEVEL 4 - 6 Albuterol/Ipratropium 1 amp 09/15/19 20:00 09/16/19 07:08 Duoneb - NEB 1 amp RQID CARLOS Administration Chlorhexidine Gluconate 1 applic 09/15/19 22:00 09/15/19 23:35 Hibiclens For Decolonization - TP 1 applic HS CARLOS Administration Docusate Sodium 100 mg 09/15/19 22:00 09/16/19 09:01 Colace - PO 100 mg BID CARLOS Administration Famotidine 20 mg 09/16/19 10:00 09/16/19 09:02 Pepcid - PO 20 mg DAILY CARLOS Administration Furosemide 40 mg 09/15/19 19:00 09/16/19 06:21 Lasix Injection - IVPUSH 40 mg 0600,1400,2000 CARLOS Administration Heparin Sodium (Porcine) 5,000 unit 09/15/19 22:00 09/16/19 06:22 Heparin - SQ 5,000 unit TID CARLOS Administration Piperacillin Sod/Tazobactam 50 mls @ 100 mls/hr 09/16/19 02:00 Sod 3.375 gm/ Dextrose IVPB Q8H-IV CARLOS Protocol Piperacillin Sod/Tazobactam 50 mls @ 100 mls/hr 09/16/19 02:00 09/16/19 09:34 Sod 3.375 gm/ Dextrose IVPB 09/16/19 10:29 100 mls/hr Q8H-IV CARLOS Administration Protocol Azithromycin 250 mg/ Dextrose 250 mls @ 250 mls/hr 09/16/19 10:00 09/16/19 09 :17 IVPB 250 mls/hr DAILY CARLOS Administration Insulin Aspart 1 vial 09/15/19 22:00 09/16/19 06:23 Novolog Vial Sliding Scale - SQ 2 units ACHS CARLOS Administration Protocol Levothyroxine Sodium 200 mcg 09/16/19 07:00 09/16/19 06:25 Synthroid - PO 200 mcg 0700 CARLOS Administration Losartan Potassium 50 mg 09/16/19 10:00 Cozaar - PO DAILY CARLOS Metoclopramide HCl 10 mg 09/15/19 18:59 Reglan - PO TID PRN NAUSEA AND/OR VOMITING Morphine Sulfate 2 mg 09/15/19 19:40 09/16/19 09:43 Morphine Sulfate IVPUSH 2 mg Q6H PRN Administration PAIN LEVEL 7 - 10 Mupirocin 1 applic 09/15/19 22:00 09/16/19 09:02 Bactroban Ointment (For Decolonization) - NS 09/20/19 21:59 1 applic BID CARLOS Administration Nicotine 21 mg 09/16/19 10:00 Nicoderm Patch - TD DAILY CARLOS Senna 2 tab 09/15/19 22:00 09/15/19 23:36 Senna - PO 2 tab HS CARLOS Administration Sodium Chloride 2 spray 09/15/19 20:07 [employer] Adel Nasal Adel - NS TID PRN NASAL CONGESTION ASSESSMENT/PLAN: Problem List - Problems (1) Volume overload Assessment/Plan: anasarca on lasix 80mg tid she has abdominal distention, ascites, bilateral lower lobe crackles and peripheral +3 edema. on supplemental oxygen monitor daily weights, strick intake and output abd ct scan pending echo monitor kidney function Code(s): E87.70 - FLUID OVERLOAD, UNSPECIFIED (2) Heart block, AV Assessment/Plan: Continue to avoid AV sadiq slowing agents c/w synthroid cardiac meds being held, monitor bp appreciate cardiology consultation Code(s): I44.30 - UNSPECIFIED ATRIOVENTRICULAR BLOCK (3) Asthma Assessment/Plan: not in acute exacerbation, shortness of breath likely secondary to volume overload on supplemental oxygen to maintains sats above 92%. Code(s): J45.909 - UNSPECIFIED ASTHMA, UNCOMPLICATED (4) Atelectasis of right lung Code(s): J98.11 - ATELECTASIS (5) Chronic pain Code(s): G89.29 - OTHER CHRONIC PAIN (6) DMII (diabetes mellitus, type 2) Assessment/Plan: monitor bgms, novolog ss Code(s): E11.9 - TYPE 2 DIABETES MELLITUS WITHOUT COMPLICATIONS (7) HTN (hypertension) Assessment/Plan: on lasix tid 80mg, BP improving with lasix. per cardiology stop home diltiazem , and hold all antihypertensive meds, but if needed avoid av sadiq blockers. Code(s): I10 - ESSENTIAL (PRIMARY) HYPERTENSION (8) Hypothyroidism Assessment/Plan: endocrinlogy consulted Code(s): E03.9 - HYPOTHYROIDISM, UNSPECIFIED (9) Tobacco dependence Code(s): F17.200 - NICOTINE DEPENDENCE, UNSPECIFIED, UNCOMPLICATED (10) Prophylactic measure Code(s): Z29.9 - ENCOUNTER FOR PROPHYLACTIC MEASURES, UNSPECIFIED Visit type - Emergency Visit Emergency Visit: Yes ED Registration Date: 09/15/19 Care time: The patient presented to the Emergency Department on the above date and was hospitalized for further evaluation of their emergent condition. - New Patient This patient is new to me today: Yes Date on this admission: 09/18/19 - Critical Care Critical Care patient: Yes Total Critical Care Time (in minutes): 40 Critical Care Statement: The care of this patient involved high complexity decision making to prevent further life threatening deterioration of the patient 's condition and/or to evaluate & treat vital organ system(s) failure or risk of failure.
[2019-09-16] MEDS ORDERED: LOSARTAN POTASSIUM 50 MG TABLET (FP) PO SCH (10:00)
--- NOTE | 2019-09-16 10:44 | PN ---
Progress Note (short form) - Note Progress Note: Progress note: Pt seen and examined by me in the ICU. In good good spirits and w/o complaints. ECG in am shows pt again in complete heart block and junctional rhythm. BP 130's /60's. Cardiology notified. Currently on NC 2L with O2 sat 100%. Transthoracic pacer pads in place. Endo consulted for elevated TSH. Current Medications Acetaminophen (Tylenol -) 650 mg PO Q6H PRN PRN Reason: PAIN LEVEL 4 - 6 Albuterol/Ipratropium (Duoneb -) 1 amp NEB RQID [facility] Last Admin: 09/16/19 07:08 Dose: 1 amp Chlorhexidine Gluconate (Hibiclens For Decolonization -) 1 applic TP HS [facility] Last Admin: 09/15/19 23:35 Dose: 1 applic Docusate Sodium (Colace -) 100 mg PO BID [facility] Last Admin: 09/16/19 09:01 Dose: 100 mg Famotidine (Pepcid -) 20 mg PO DAILY [facility] Last Admin: 09/16/19 09:02 Dose: 20 mg Furosemide (Lasix Injection -) 40 mg IVPUSH 0600,1400,2000 [facility] Last Admin: 09/16/19 06:21 Dose: 40 mg Heparin Sodium (Porcine) (Heparin -) 5,000 unit SQ TID [facility] Last Admin: 09/16/19 06:22 Dose: 5,000 unit Piperacillin Sod/Tazobactam (Sod 3.375 gm/ Dextrose) 50 mls @ 100 mls/hr IVPB Q8H-IV [facility]; Protocol Azithromycin 250 mg/ Dextrose 250 mls @ 250 mls/hr IVPB DAILY [facility] Last Admin: 09/16/19 09:17 Dose: 250 mls/hr Insulin Aspart (Novolog Vial Sliding Scale -) 1 vial SQ ACHS [facility]; Protocol Last Admin: 09/16/19 06:23 Dose: 2 units Levothyroxine Sodium (Synthroid -) 200 mcg PO 0700 [facility] Last Admin: 09/16/19 06:25 Dose: 200 mcg Losartan Potassium (Cozaar -) 50 mg PO DAILY [facility] Metoclopramide HCl (Reglan -) 10 mg PO TID PRN PRN Reason: NAUSEA AND/OR VOMITING Morphine Sulfate (Morphine Sulfate) 2 mg IVPUSH Q6H PRN PRN Reason: PAIN LEVEL 7 - 10 Last Admin: 09/16/19 09:43 Dose: 2 mg Mupirocin (Bactroban Ointment (For Decolonization) -) 1 applic NS BID CARLOS Stop: 09/20/19 21:59 Last Admin: 09/16/19 09:02 Dose: 1 applic Nicotine (Nicoderm Patch -) 21 mg TD DAILY CARLOS Senna (Senna -) 2 tab PO HS CARLOS Last Admin: 09/15/19 23:36 Dose: 2 tab Sodium Chloride ([place] Nasal [place] -) 2 spray NS TID PRN PRN Reason: NASAL CONGESTION Vital Signs Vital Signs Temperature 98.4 F 09/16/19 07:00 Pulse Rate 60 09/16/19 09:38 Respiratory Rate 16 09/16/19 09:38 Blood Pressure 165/74 09/16/19 09:38 O2 Sat by Pulse Oximetry (%) 97 09/16/19 07:32 Intake & Output 09/13/19 09/14/19 09/15/19 09/16/19 23:59 23:59 23:59 22:59 Intake Total 530 Output Total 2000 900 Balance -1470 -900 Weight 73.391 kg 84.912 kg EXAM: Neuro: alert, oriented Lungs: CTA, diminished base Abd: softly distended; + BS Ext: WWP; Trace edema; + pulse Skin: warm, intact CBC,CMP WBC 7.8 K/mm3 (4.0-10.0) 09/15/19 15:20 RBC 3.63 M/mm3 (3.60-5.2) 09/15/19 15:20 Hgb 12.4 GM/dL (10.7-15.3) 09/15/19 15:20 Hct 35.7 % (32.4-45.2) 09/15/19 15:20 MCV 98.4 fl (80-96) H 09/15/19 15:20 MCH 34.1 pg (25.7-33.7) H 09/15/19 15:20 MCHC 34.6 g/dl (32.0-36.0) 09/15/19 15:20 RDW 14.0 % (11.6-15.6) 09/15/19 15:20 Plt Count 284 K/MM3 (134-434) 09/15/19 15:20 MPV 8.8 fl (7.5-11.1) 09/15/19 15:20 Absolute Neuts (auto) 6.2 K/mm3 (1.5-8.0) 09/15/19 15:20 Neutrophils % 80.2 % (42.8-82.8) 09/15/19 15:20 Lymphocytes % 13.2 % (8-40) 09/15/19 15:20 Monocytes % 4.5 % (3.8-10.2) 09/15/19 15:20 Eosinophils % 1.0 % (0-4.5) 09/15/19 15:20 Basophils % 1.1 % (0-2.0) 09/15/19 15:20 Nucleated RBC % 0 % (0-0) 09/15/19 15:20 ESR 79 mm/hr (0-30) H 09/15/19 20:01 Sodium 138 mmol/L (136-145) 09/16/19 05:36 Potassium 4.0 mmol/L (3.5-5.1) 09/16/19 05:36 Chloride 106 mmol/L (98-107) 09/16/19 05:36 Carbon Dioxide 25 mmol/L (21-32) 09/16/19 05:36 Anion Gap 7 MMOL/L (8-16) L 09/16/19 05:36 BUN 24.6 mg/dL (7-18) H 09/16/19 05:36 Creatinine 0.9 mg/dL (0.55-1.3) 09/16/19 05:36 Est GFR (CKD-EPI)AfAm 71.48 09/16/19 05:36 Est GFR (CKD-EPI)NonAf 61.67 09/16/19 05:36 POC Glucometer 156 UNITS (80-120) 09/16/19 05:50 Random Glucose 162 mg/dL (74-106) H 09/16/19 05:36 Hemoglobin A1c % 7.1 % (4.2-6.3) H 09/16/19 05:36 Lactic Acid 1.2 mmol/L (0.4-2.0) 09/15/19 20:01 Calcium 8.4 mg/dL (8.5-10.1) L 09/16/19 05:36 Phosphorus 3.9 mg/dL (2.5-4.9) 09/15/19 15:20 Magnesium 2.1 mg/dL (1.8-2.4) 09/15/19 15:20 Total Bilirubin 0.5 mg/dL (0.2-1) 09/16/19 05:36 AST 27 U/L (15-37) 09/16/19 05:36 ALT 23 U/L (13-61) 09/16/19 05:36 Alkaline Phosphatase 191 U/L (45-117) H 09/16/19 05:36 Creatine Kinase 178 U/L (26-192) 09/15/19 15:20 Creatine Kinase Index 2.0 % (0.0-5.0) 09/15/19 15:20 CK-MB (CK-2) 3.7 ng/mL (0.5-3.6) H 09/15/19 15:20 Troponin I 0.02 ng/ml (0.00-0.05) 09/16/19 05:36 B-Natriuretic Peptide 1359.8 pg/ml (5-450) H 09/15/19 20:01 Total Protein 5.8 g/dl (6.4-8.2) L 09/16/19 05:36 Albumin 2.4 g/dl (3.4-5.0) L 09/16/19 05:36 Triglycerides 81 mg/dL (0-150) 09/16/19 05:36 Cholesterol 154 mg/dL (50-200) 09/16/19 05:36 Total LDL Cholesterol 87 mg/dL (5-100) 09/16/19 05:36 HDL Cholesterol 59 mg/dL (40-60) 09/16/19 05:36 TSH 31.70 uIU/ml (0.358-3.74) H 09/16/19 05:36 Free T4 1.20 ng/dl (0.76-1.46) 09/15/19 16:30 ASSESSMENT: CHB of unclear etiology DM2 Hypothyroid HTN Asthma OA Fibromyalgia Chronic pain PLAN: -Cardiology to see in AM -Endocrine consulted - have pacing pads on and connected to monitor at all times -Atropine is not effective in CHB - will use external pacing and Dopa or Epi if decompensates -If HD unstable-Dr Enmanuel Lozano to be notified for IVP placement -Consider stopping abx - do not believe she is infected. No infiltrate on CT. R pleural effusion may be related to pelvic/abdominal mass, ?malignant. -f/u abdomen/pelvic imaging -Continue home medications -DVT PPx Patient is critically ill Xuan Martínez, SAFETY MANAGER Pulm/Critical Care SAFETY MANAGER Additional CC's: Scott Craig
--- NOTE | 2019-09-16 12:31 | CON.CARD ---
Consult Consult Specialty:: Cardiology Referred by:: ER Reason for Consultation:: heart block - History of Present Illness Chief Complaint: abd and le swelling History of Present Illness: 78 year old woman with a pmh HTN, HLD, DMII, hypothyroid, smoker, asthma, fibromyalgia, arthritis admitted with 2 month history of abdominal swelling, LE swelling and 40lb weight gain. found to be in complete heart block in ER with narrow complex escape rhythm. pt seen and examined today in [place]. discussed with her daughter over the phone. pt has been seen by her PMD over the past 2 months for these symptoms but no diagnosis has been made yet. she denies any cardiac testing previously. pt lives in [place] and her doctors are there. she was visiting her daughter here this weekend and her daughter was concerned so brought her to the ER. pt denies chest pain, sob, palpitations. no lightheadedness or dizziness. no syncope or near syncope. she was started on IV Lasix and has had good urine output and has had improvement in her edema. CTA chest and CT a/p were done yesterday, results are pending. Pt was on Diltiazem at home. Noted to have uncontrolled HTN in ER. Given Lasix only and BP improved. - History Source History Provided By: Patient, Family Member Limitations to Obtaining History: No Limitations - Past Medical History Cardio/Vascular: Yes: HTN Pulmonary: Yes: Asthma ...: No Musculoskeletal: Yes: Chronic low back pain, Osteoarthritis Rheumatology: Yes: Fibromyalgia Endocrine: Yes: Diabetes Mellitus, Hypothyroidism - Past Surgical History Past Surgical History: Yes: Cholecystectomy - Alcohol/Substance Use Hx Alcohol Use: No History of Substance Use: reports: None - Smoking History Smoking history: Never smoked Have you smoked in the past 12 months: Yes Aproximately how many cigarettes per day: 20 - Social History ADL: Independent Occupation: retired History of Recent Travel: No Home Medications - Allergies Allergies/Adverse Reactions: Allergies Allergy/AdvReac Type Severity Reaction Status Date / Time No Known Allergies Allergy Verified 09/15/19 13:49 - Home Medications Home Medications: Ambulatory Orders Benazepril HCl [Lotensin] 40 mg PO DAILY 09/15/19 Diltiazem Cd [Cardizem Cd -] 120 mg PO DAILY 09/15/19 Hydrochlorothiazide [Hctz -] 25 mg PO DAILY 09/15/19 Levothyroxine [Synthroid -] 175 mcg PO DAILY 09/15/19 Metformin HCl [Glucophage] 0 mg PO BID 09/15/19 Review of Systems - Review of Systems Constitutional: reports: Malaise, Weakness. denies: No Symptoms, Chills, Diaphoresis, Fever, Lethargy, Loss of Appetite, Night Sweats, Unintentional Wgt. Loss, Other Eyes: denies: No Symptoms, Blind Spots, Blurred Vision, Double Vision, Eye Pain , Floaters, Photophobia, Recent Change in Vision, Other HENT: denies: No Symptoms, Difficult Swallowing, Ear Discharge, Ear Pain, Epistaxis, Gingival Bleeding, Hearing Loss, Mouth Swelling, Nasal Congestion, Ocular Prosthesis, Throat Pain, Toothache, Ringing in Ears, Other Neck: denies: No Symptoms, Decreased ROM, Lumps, Pain on Movement, Stiffness, Swollen Glands, Tenderness, Other Cardiovascular: reports: Edema. denies: No Symptoms, Chest Pain, Palpitations, Shortness of Breath, Other Respiratory: denies: No Symptoms, Cough, Exercise Intolerance, Hemoptysis, Orthopnea, PND, Snoring, SOB, SOB on Exertion, Wheezing, Other Gastrointestinal: reports: Bloating. denies: No Symptoms, Abdominal Pain, Constipation, Diarrhea, Dysphagia, Indigestion, Melena, Nausea, Rectal Bleeding , Vomiting, Vomiting Blood, Other Genitourinary: denies: No Symptoms, Burning, Discharge, Dysuria, Flank Pain, Frequency, Hematuria, Incontinence, Lesions, Menses, Pain, Testicular Mass, Testicular Pain, Testicular Swelling, Urgency, Vaginal Bleeding, Other Breasts: denies: No Symptoms Reported, See HPI, Breast Implants, Discharge from Nipple, Lumps, Pain, Skin Changes, Other Musculoskeletal: denies: No Symptoms, Back Pain, Crepitus, Decreased ROM, Extremity Pain, Joint Pain, Joint Swelling, Muscle Pain, Muscle Cramps, Muscle Weakness, Other Integumentary: denies: No Symptoms, Blister, Bruising, Change in Color, Eczema, Erythema, Incision, Lesions, Lump, Pallor, Pruritis, Rash, Wound, Other Neurological: denies: No Symptoms, Change in LOC, Change in Speech, Confusion, Dizziness, Headache, Incoordination, Numbness, Parasthesia, Pre-Existing Deficit , Seizure, Syncope, Tremors, Unsteady Gait, Weakness, Other Endocrine: denies: No Symptoms, Excessive Sweating, Flushing, Increased Hunger, Increased Thirst, Intolerance to Cold, Intolerance to Heat, Unexplained Weight Gain, Unexplained Weight Loss, Other Hematology/Lymphatic: denies: No Symptoms, Easily Bruised, Excessive Bleeding, Swollen Glands, Other Psychiatric: denies: No Symptoms, Altered Sleep Pattern, Anxiety, Depression, Hallucinations, Panic, Paranoia, Suicidal, Other - Risk Factors Known Risk Factors: Yes: Diabetes Mellitus, Hypercholesterolemia, Hypertension Vital Signs: Vital Signs Temperature 98.4 F 09/16/19 07:00 Pulse Rate 60 09/16/19 09:38 Respiratory Rate 16 09/16/19 09:38 Blood Pressure 165/74 09/16/19 09:38 O2 Sat by Pulse Oximetry (%) 97 09/16/19 07:32 Constitutional: Yes: No Distress, Calm Eyes: Yes: Conjunctiva Clear, EOM Intact, PERRL HENT: Yes: Atraumatic, Normocephalic Neck: Yes: Supple, Trachea Midline Respiratory: Yes: Regular, Diminished, On Nasal O2. No: Rales, Rhonchi, SOB, Wheezes Gastrointestinal: Yes: Normal Bowel Sounds. No: Tenderness Cardiovascular: Yes: Other (chb, narrow complex escape 60bpm). No: Regular Rate and Rhythm, Bradycardia, Tachycardia, Pulse Irregular, Gallop, Rub, Varicosities JVD: No Carotid Bruit: No PMI: Non-Displaced Heart Sounds: Yes: S1, S2. No: Split S2, S3, S4, Clicks, Gallop, Rub, Bruit Murmur: No: Systolic Murmur, Diastolic Murmur Musculoskeletal: Yes: WNL Extremities: Yes: WNL Edema: Yes Edema: LLE: Trace, RLE: Trace Peripheral Pulses WNL: Yes Peripheral Pulses: 2+ Left Doralis Pedis, 2+ Right Dorsalis Pedis Neurological: Yes: Alert, Oriented Psychiatric: Yes: Alert, Oriented - Other Data Labs, Other Data: CBC, BMP 09/15/19 15:20 09/16/19 05:36 INR, PTT INR 1.05 (0.83-1.09) 09/16/19 05:35 Troponin, BNP 09/15/19 09/15/19 09/15/19 15:20 15:20 20:01 Troponin I < 0.02 B-Natriuretic Peptide 1220.0 H 1359.8 H 09/16/19 05:36 Troponin I 0.02 B-Natriuretic Peptide Troponin, BNP 09/15/19 09/15/19 09/15/19 15:20 15:20 20:01 Troponin I < 0.02 B-Natriuretic Peptide 1220.0 H 1359.8 H 09/16/19 05:36 Troponin I 0.02 B-Natriuretic Peptide sinus rhythm with complete heart block 59bpm, junctional escape rhythm. Imaging - Results Chest X-ray: Report Reviewed, Image Reviewed Cat Scan: Pending EKG: Report Reviewed, Image Reviewed Other: Report Reviewed, Image Reviewed (tele-sinus rhythm, complete heart block , narrow complex junctional escape rhythm.) Assessment/Plan 78 year old woman with a pmh HTN, HLD, DMII, hypothyroid, smoker, asthma, fibromyalgia, arthritis admitted with 2 month history of abdominal swelling, LE swelling and 40lb weight gain. found to be in complete heart block in ER with narrow complex escape rhythm. pt has been seen by her PMD over the past 2 months for these symptoms but no diagnosis has been made yet. she denies any cardiac testing previously. pt lives in [place] and her doctors are there. she was visiting her daughter here this weekend and her daughter was concerned so brought her to the ER. pt denies chest pain, sob, palpitations. no lightheadedness or dizziness. no syncope or near syncope. she was started on IV Lasix and has had good urine output and has had improvement in her edema. CTA chest and CT a/p were done yesterday, results are pending. Arrhythmia-Complete heart block with narrow complex junctional escape rhythm -has remained hemodynamically stable -no ischemia on ekg and cardiac enzymes wnl -evaluate for reversible sources -stop home diltiazem -avoid all AV sadiq blockers -TSH 32, on synthroid, endocrine to evaluate -K wnl, Mg wnl -no need for emergent Transvenous pacing at this time -keep pacer pads on patient on standbye -awaiting results of CT chest/a/p -Cxray showed possible L breast mass -if no reversible source of CHB pt will likely need PPM -check ECHO (limited echo in ER reportedly showed no pericardial effusion) -consult Dr. Lozano as pt will likely need PPM during admission. Edema-anasarca, abd ascites and peripheral edema -started on lasix with improvement -monitor strict I/Os, daily weights, bun/creat, electrolytes and replete as needed -malignancy work up in process -check echo to evaluate for structural heart disease HTN-adequate now, uncontrolled on initial presentation -improved with Lasix alone -stop home diltiazem -hold all ant-HTN meds for now and if needed can give prn but avoid AV sadiq blockers
[2019-09-16] MEDS: NICOTINE 21 MG/24 HOURS TOPICAL PATCH TD SCH (12:42)
[2019-09-16] MEDS: ACETAMINOPHEN 325 MG TABLET (FP) PO PRN (12:43)
--- NOTE | 2019-09-16 15:49 | CONSULT ---
Consult Consult Specialty:: Endocrinology Referred by:: Marta Banuelos NP Reason for Consultation:: Hypothyroidism - History of Present Illness Chief Complaint: SOB History of Present Illness: This is a 78 year old woman with h/o T2DM, hypothyroidism ,HTN, HLD, fibromyalgia, asthma, osteoarthritis presents to ED with c/o SOB and Wt gain of 40 lbs. Pt was found to be in CHB and transferred to ICU and seen by Cardiology. Pt also found to have TSH of 31.7 and referred for evalutation. Pt drinks coffeee with mild right after taking LT4 and has been on the current dose for a few months. Prior to this she was on different doses on alternate days. - History Source History Provided By: Patient, Family Member, Medical Record - Past Medical History Cardio/Vascular: Yes: HTN Pulmonary: Yes: Asthma ...: No Musculoskeletal: Yes: Chronic low back pain, Osteoarthritis Rheumatology: Yes: Fibromyalgia Endocrine: Yes: Diabetes Mellitus, Hypothyroidism - Past Surgical History Past Surgical History: Yes: Cholecystectomy - Alcohol/Substance Use Hx Alcohol Use: No History of Substance Use: reports: None - Smoking History Smoking history: Never smoked Have you smoked in the past 12 months: Yes Aproximately how many cigarettes per day: 20 - Social History ADL: Independent Occupation: retired History of Recent Travel: No Home Medications - Allergies Allergies/Adverse Reactions: Allergies Allergy/AdvReac Type Severity Reaction Status Date / Time No Known Allergies Allergy Verified 09/15/19 13:49 - Home Medications Home Medications: Ambulatory Orders Benazepril HCl [Lotensin] 40 mg PO DAILY 09/15/19 Diltiazem Cd [Cardizem Cd -] 120 mg PO DAILY 09/15/19 Hydrochlorothiazide [Hctz -] 25 mg PO DAILY 09/15/19 Levothyroxine [Synthroid -] 175 mcg PO DAILY 09/15/19 Metformin HCl [Glucophage] 0 mg PO BID 09/15/19 Family Medical History Family Hx Diabetes: Mother Review of Systems - Review of Systems Constitutional: reports: Weakness Eyes: reports: No Symptoms HENT: reports: No Symptoms Neck: reports: No Symptoms Cardiovascular: reports: Shortness of Breath Respiratory: reports: SOB Gastrointestinal: reports: No Symptoms Genitourinary: reports: No Symptoms Musculoskeletal: reports: No Symptoms Integumentary: reports: No Symptoms Neurological: reports: No Symptoms Endocrine: reports: No Symptoms Physical Exam Vital Signs: Vital Signs Temperature 98.1 F 09/16/19 11:00 Pulse Rate 62 09/16/19 15:00 Respiratory Rate 14 09/16/19 15:00 Blood Pressure 150/66 09/16/19 15:00 O2 Sat by Pulse Oximetry (%) 97 09/16/19 07:32 Constitutional: Yes: No Distress, Calm Eyes: Yes: Conjunctiva Clear, EOM Intact HENT: Yes: Atraumatic, Normocephalic Neck: Yes: Supple, Trachea Midline Cardiovascular: Yes: Regular Rate and Rhythm Respiratory: Yes: Regular, CTA Bilaterally Gastrointestinal: Yes: Normal Bowel Sounds, Soft Musculoskeletal: Yes: WNL Extremities: Yes: WNL Edema: Yes Neurological: Yes: Alert, Oriented Labs: CBC, BMP 09/15/19 15:20 09/16/19 05:36 Assessment/Plan AP: CHB T2DM Hypothyroidism HTN Asthma OA Fibromyalgia Chronic pain Agree with increasing dose of LT4 200 for now Unclear if the high TSH is sec to decreased absorttion as she was taking coffee right after LT4 Explained to pt not to eat or drink for at least one hour after taking LT4. It may be taken after 2 AM if she wakes up regularly during location man. Repeat TSH in 4 weeks and adjust dose as necesary
[2019-09-16] MEDS: CHLORHEXIDINE GLUCONATE 4% CLEANSER FOR DECOLONIZATION TP SCH (22:20)
[2019-09-16] MEDS: SENNOSIDES 8.6MG TABLET (FP) PO SCH (22:20)
[2019-09-17] MEDS: LEVOTHYROXINE NA 200 MCG TABLET PO SCH (06:21)
[2019-09-17] MEDS: HEPARIN NA (PORCINE) 5,000 UNITS/ML 1ML VIAL SQ SCH ×3 (06:21→22:05)
[2019-09-17] MEDS: FUROSEMIDE 40 MG/4 ML INJECTABLE VIAL IVPUSH SCH ×3 (06:21→20:36)
[2019-09-17] MEDS: MORPHINE SULFATE 2 MG/ML VIAL IVPUSH PRN ×3 (06:28→20:44)
[2019-09-17] MEDS: INSULIN SLIDING SCALE (NOVOLOG) 1 VIAL SQ SCH ×4 (06:33→22:05)
[2019-09-17 07:29] LABS: ALBUMIN 2.5 g/dl (3.4-5.0); BILIRUBIN,TOTAL 0.4 mg/dL (0.2-1); BLOOD UREA NITROGEN 25.6 mg/dL (7-18); CALCIUM 8.3 mg/dL (8.5-10.1); CREATININE 1.1 mg/dL (0.55-1.3); POTASSIUM 3.6 mmol/L (3.5-5.1)
[2019-09-17] MEDS: ALBUTEROL SO4 2.5/IPRATROPIUM 0.5 INH SOL 3 ML VIAL.NEB. NEB SCH ×4 (07:45→20:38)
[2019-09-17 08:25] LABS: BASO % 1.4 % (0-2.0); HEMATOCRIT 31.8 % (32.4-45.2); HEMOGLOBIN 10.6 GM/dL (10.7-15.3); LYMPH % 27.7 % (8-40); MCH 32.4 pg (25.7-33.7); MCHC 33.3 g/dl (32.0-36.0); MEAN CELL VOLUME 97.4 fl (80-96); MEAN PLT VOLUME 8.8 fl (7.5-11.1); MONO % 6.7 % (3.8-10.2); NEUT % 60.2 % (42.8-82.8); PLATELET COUNT 250 K/MM3 (134-434); RBC 3.26 M/mm3 (3.60-5.2); RDW 13.9 % (11.6-15.6); WHITE BLOOD COUNT 6.2 K/mm3 (4.0-10.0)
[2019-09-17 08:26] LABS: MAGNESIUM 1.7 mg/dL (1.8-2.4)
[2019-09-17] MEDS ORDERED: PT OWN MED DRAWER 7, Y5N ONE (09:56)
[2019-09-17] MEDS: FAMOTIDINE 20 MG TABLET PO SCH (10:06)
[2019-09-17] MEDS: NICOTINE 21 MG/24 HOURS TOPICAL PATCH TD SCH (10:06)
[2019-09-17] MEDS: DOCUSATE SODIUM 100 MG CAPSULE (FP) PO SCH ×2 (10:06→22:04)
[2019-09-17] MEDS: MUPIROCIN 2% TOPICAL OINTMENT FOR DECOLONIZATION NS SCH ×2 (10:07→22:04)
--- NOTE | 2019-09-17 10:10 | EKG ---
Test Reason : Blood Pressure : / mmHG Vent. Rate : 061 BPM Atrial Rate : 068 BPM P-R Int : 000 ms QRS Dur : 084 ms QT Int : 432 ms P-R-T Axes : 065 003 094 degrees QTc Int : 434 ms SINUS RHYTHM WITH COMPLETE HEART BLOCK AND JUNCTIONAL RHYTHM LOW VOLTAGE QRS ANTEROSEPTAL INFARCT (CITED ON OR BEFORE 15-SEP-2019) ABNORMAL ECG WHEN COMPARED WITH ECG OF 15-SEP-2019 19:25, LIKELY NO SIGNIFICANT CHANGES Confirmed by MANPREET BHAKTA, ZO ([id number]) on 09/17/2019 10:10:09 AM Referred By: Alan LEWIS Confirmed By:ZO CASE MD
--- NOTE | 2019-09-17 10:24 | EKG ---
Test Reason : Blood Pressure : / mmHG Vent. Rate : 059 BPM Atrial Rate : 089 BPM P-R Int : 000 ms QRS Dur : 086 ms QT Int : 438 ms P-R-T Axes : 077 -34 096 degrees QTc Int : 433 ms SINUS RHYTHM WITH COMPLETE HEART BLOCK AND JUNCTIONAL RHYTHM LEFT AXIS DEVIATION LOW VOLTAGE QRS SEPTAL INFARCT , AGE UNDETERMINED ABNORMAL ECG NO PREVIOUS ECGS AVAILABLE Confirmed by ZO CASE MD ([id number]) on 09/17/2019 10:24:27 AM Referred By: Confirmed By:ZO CASE MD
[2019-09-17] MEDS: AZITHROMYCIN IVPB 250 MG in DEXTROSE 5%-WATER - 250 ML IVPB SCH (10:25)
--- NOTE | 2019-09-17 11:51 | PN ---
Teaching Attending Note Name of Resident: Marcin Thorne ATTENDING PHYSICIAN STATEMENT I saw and evaluated the patient. I reviewed the resident's note and discussed the case with the resident. I agree with the resident's findings and plan as documented. SUBJECTIVE: Patient seen and examined by me in the ICU. Feels better. No CP or SOB. NSR noted on monitor. Awaiting Cardiology follow up. Intake & Output 09/15/19 09/16/19 09/16/19 09/17/19 00:59 00:59 23:59 23:59 Intake Total 370 Output Total 4480 Balance -4110 Weight 167 lb 12.8 oz Last Vital Signs Temp Pulse Resp BP Pulse Ox 98 F 80 16 174/63 H 95 09/17/19 07:00 09/17/19 10:00 09/17/19 10:00 09/17/19 10:00 09/17/19 07:53 Active Medications Acetaminophen (Tylenol -) 650 mg PO Q6H PRN PRN Reason: PAIN LEVEL 4 - 6 Last Admin: 09/16/19 12:43 Dose: 650 mg Albuterol/Ipratropium (Duoneb -) 1 amp NEB RQID [facility] Last Admin: 09/17/19 07:45 Dose: 1 amp Chlorhexidine Gluconate (Hibiclens For Decolonization -) 1 applic TP HS [facility] Last Admin: 09/16/19 22:20 Dose: 1 applic Docusate Sodium (Colace -) 100 mg PO BID [facility] Last Admin: 09/17/19 10:06 Dose: 100 mg Famotidine (Pepcid -) 20 mg PO DAILY [facility] Last Admin: 09/17/19 10:06 Dose: 20 mg Furosemide (Lasix Injection -) 40 mg IVPUSH 0600,1400,2000 [facility] Last Admin: 09/17/19 06:21 Dose: 40 mg Heparin Sodium (Porcine) (Heparin -) 5,000 unit SQ TID [facility] Last Admin: 09/17/19 06:21 Dose: 5,000 unit Insulin Aspart (Novolog Vial Sliding Scale -) 1 vial SQ ACHS [facility]; Protocol Last Admin: 09/17/19 06:33 Dose: Not Given Levothyroxine Sodium (Synthroid -) 200 mcg PO 0700 [facility] Last Admin: 09/17/19 06:21 Dose: 200 mcg Losartan Potassium (Cozaar -) 50 mg PO DAILY [facility] Last Admin: 09/16/19 12:20 Dose: Not Given Metoclopramide HCl (Reglan -) 10 mg PO TID PRN PRN Reason: NAUSEA AND/OR VOMITING Morphine Sulfate (Morphine Sulfate) 2 mg IVPUSH Q6H PRN PRN Reason: PAIN LEVEL 7 - 10 Last Admin: 09/17/19 06:28 Dose: 2 mg Mupirocin (Bactroban Ointment (For Decolonization) -) 1 applic NS BID [facility] Stop: 09/20/19 21:59 Last Admin: 09/17/19 10:07 Dose: 1 applic Nicotine (Nicoderm Patch -) 21 mg TD DAILY [facility] Last Admin: 09/17/19 10:06 Dose: 21 mg Senna (Senna -) 2 tab PO HS [facility] Last Admin: 09/16/19 22:20 Dose: 2 tab Sodium Chloride ([place]al [place] -) 2 spray NS TID PRN PRN Reason: NASAL CONGESTION Last Admin: 09/16/19 22:35 Dose: 2 spray EXAM: Neuro: alert, oriented Lungs: CTA, diminished base Abd: softly distended; + BS Ext: WWP; Trace edema; + pulse Skin: warm, intact Laboratory Results - last 24 hr 09/15/19 09/16/19 09/16/19 20:49 12:00 16:04 WBC RBC Hgb Hct MCV MCH MCHC RDW Plt Count MPV Absolute Neuts (auto) Neutrophils % Lymphocytes % Monocytes % Eosinophils % Basophils % Nucleated RBC % Sodium Potassium Chloride Carbon Dioxide Anion Gap BUN Creatinine Est GFR (CKD-EPI)AfAm Est GFR (CKD-EPI)NonAf POC Glucometer 155 152 227 Random Glucose Calcium Phosphorus Magnesium Total Bilirubin AST ALT Alkaline Phosphatase Total Protein Albumin 09/16/19 09/17/19 09/17/19 22:39 04:11 05:38 WBC RBC Hgb Hct MCV MCH MCHC RDW Plt Count MPV Absolute Neuts (auto) Neutrophils % Lymphocytes % Monocytes % Eosinophils % Basophils % Nucleated RBC % Sodium 137 Potassium 3.6 Chloride 101 Carbon Dioxide 30 Anion Gap 5 L BUN 25.6 H Creatinine 1.1 Est GFR (CKD-EPI)AfAm 56.08 Est GFR (CKD-EPI)NonAf 48.39 POC Glucometer 207 126 Random Glucose 103 Calcium 8.3 L Phosphorus 5.0 H Magnesium 1.7 L Total Bilirubin 0.4 AST 22 ALT 21 Alkaline Phosphatase 190 H Total Protein 6.0 L Albumin 2.5 L 09/17/19 09/17/19 09/17/19 05:38 06:32 11:15 WBC 6.2 RBC 3.26 L Hgb 10.6 L Hct 31.8 L MCV 97.4 H MCH 32.4 MCHC 33.3 RDW 13.9 Plt Count 250 MPV 8.8 Absolute Neuts (auto) 3.7 Neutrophils % 60.2 D Lymphocytes % 27.7 D Monocytes % 6.7 Eosinophils % 4.0 D Basophils % 1.4 Nucleated RBC % 0 Sodium Potassium Chloride Carbon Dioxide Anion Gap BUN Creatinine Est GFR (CKD-EPI)AfAm Est GFR (CKD-EPI)NonAf POC Glucometer 110 303 Random Glucose Calcium Phosphorus Magnesium Total Bilirubin AST ALT Alkaline Phosphatase Total Protein Albumin ASSESSMENT: CHB of unclear etiology DM2 Hypothyroid HTN Asthma OA Fibromyalgia Chronic pain PLAN: -Cardiology follow up -Endocrine consult noted, Synthroid increased -Would monitor off ABX for now -Hold all AVN blocking agents -DVT prophylaxis -Check EKG -Lasix -Cardiac Telemetry monitoring Dr Hatfield
--- NOTE | 2019-09-17 12:58 | CON.ID ---
Consult Consult Specialty:: infectious diseases Referred by:: hospitalist service Reason for Consultation:: pneumonia,weakness - History of Present Illness Chief Complaint: swelling generalized of the body,weakness - Past Medical History Cardio/Vascular: Yes: HTN Pulmonary: Yes: Asthma ...: No Musculoskeletal: Yes: Chronic low back pain, Osteoarthritis Rheumatology: Yes: Fibromyalgia Endocrine: Yes: Diabetes Mellitus, Hypothyroidism - Past Surgical History Past Surgical History: Yes: Cholecystectomy - Alcohol/Substance Use Hx Alcohol Use: No History of Substance Use: reports: None - Smoking History Smoking history: Never smoked Have you smoked in the past 12 months: Yes Aproximately how many cigarettes per day: 20 (1PPD x 50yrs) - Social History ADL: Independent Occupation: retired History of Recent Travel: No Home Medications - Allergies Allergies/Adverse Reactions: Allergies Allergy/AdvReac Type Severity Reaction Status Date / Time No Known Allergies Allergy Verified 09/15/19 13:49 - Home Medications Home Medications: Ambulatory Orders Benazepril HCl [Lotensin] 40 mg PO DAILY 09/15/19 Diltiazem Cd [Cardizem Cd -] 120 mg PO DAILY 09/15/19 Hydrochlorothiazide [Hctz -] 25 mg PO DAILY 09/15/19 Levothyroxine [Synthroid -] 175 mcg PO DAILY 09/15/19 Metformin HCl [Glucophage] 0 mg PO BID 09/15/19 Physical Exam Vital Signs: Vital Signs Temperature 98 F 09/17/19 07:00 Pulse Rate 80 09/17/19 10:00 Respiratory Rate 16 09/17/19 10:00 Blood Pressure 174/63 H 09/17/19 10:00 O2 Sat by Pulse Oximetry (%) 95 09/17/19 07:53 Labs: CBC, BMP 09/17/19 05:38 09/17/19 05:38
--- NOTE | 2019-09-17 14:12 | CONSULT ---
Consultation: REQUESTING PROVIDER: CONSULT REQUEST: We have been asked to medically evaluate this patient for ( specify). HISTORY OF PRESENT ILLNESS: REVIEW OF SYSTEMS: CONSTITUTIONAL: Absent: fever, chills, diaphoresis, generalized weakness, malaise, loss of appetite, weight change HEENT: Absent: rhinorrhea, nasal congestion, throat pain, throat swelling, difficulty swallowing, mouth swelling, ear pain, eye pain, visual changes CARDIOVASCULAR: Absent: chest pain, syncope, palpitations, irregular heart rate, lightheadedness , peripheral edema RESPIRATORY: Absent: cough, shortness of breath, dyspnea with exertion, orthopnea, wheezing, stridor, hemoptysis GASTROINTESTINAL: Absent: abdominal pain, abdominal distension, nausea, vomiting, diarrhea, constipation, melena, hematochezia GENITOURINARY: Absent: dysuria, frequency, urgency, hesitancy, hematuria, flank pain, genital pain MUSCULOSKELETAL: Absent: myalgia, arthralgia, joint swelling, back pain, neck pain SKIN: Absent: rash, itching, pallor HEMATOLOGIC/IMMUNOLOGIC: Absent: easy bleeding, easy bruising, lymphadenopathy, frequent infections ENDOCRINE: Absent: unexplained weight gain, unexplained weight loss, heat intolerance, cold intolerance NEUROLOGIC: Absent: headache, focal weakness or paresthesias, dizziness, unsteady gait, seizure, mental status changes, bladder or bowel incontinence PSYCHIATRIC: Absent: anxiety, depression, suicidal or homicidal ideation, hallucinations. PHYSICAL EXAMINATION Vital Signs - 24 hr 09/16/19 09/16/19 09/16/19 15:00 16:00 16:40 Temperature Pulse Rate 62 62 64 Respiratory 14 13 18 Rate Blood Pressure 150/66 152/108 H 156/57 L O2 Sat by Pulse Oximetry (%) 09/16/19 09/16/19 09/16/19 18:00 19:00 20:00 Temperature 98.1 F 98.2 F Pulse Rate 59 L 60 Respiratory 16 22 H Rate Blood Pressure 156/58 L 168/63 O2 Sat by Pulse Oximetry (%) 09/16/19 09/16/19 09/16/19 21:00 22:00 23:00 Temperature 98.2 F 98.4 F 98.4 F Pulse Rate 61 67 61 Respiratory 27 H 23 H 18 Rate Blood Pressure 179/61 H 183/72 H 160/64 O2 Sat by Pulse 97 Oximetry (%) 11/03/0209/17/19 09/17/19 00:00 01:00 02:00 Temperature 98.2 F 98 F 97.8 F Pulse Rate 62 63 61 Respiratory 27 H 17 Rate Blood Pressure 171/67 H 155/60 151/56 L O2 Sat by Pulse Oximetry (%) 09/17/19 09/17/19 09/17/19 03:00 04:00 05:00 Temperature 98 F 98.3 F 98.4 F Pulse Rate 65 73 77 Respiratory 16 21 H 14 Rate Blood Pressure 161/61 151/65 150/69 O2 Sat by Pulse Oximetry (%) 09/17/19 09/17/19 09/17/19 06:00 07:00 07:53 Temperature 98.4 F 98 F Pulse Rate 65 71 Respiratory 17 16 Rate Blood Pressure 169/72 184/69 H O2 Sat by Pulse 95 Oximetry (%) 09/17/19 09/17/19 09/17/19 08:00 09:00 10:00 Temperature Pulse Rate 81 81 80 Respiratory 16 22 H 16 Rate Blood Pressure 178/75 H 167/86 174/63 H O2 Sat by Pulse Oximetry (%) 09/17/19 13:05 Temperature 98.0 F Pulse Rate 79 Respiratory 22 H Rate Blood Pressure 194/72 H O2 Sat by Pulse Oximetry (%) GENERAL: Awake, alert, and fully oriented, in no acute distress. HEAD: Normal with no signs of trauma. EYES: Pupils equal, round and reactive to light, extraocular movements intact, sclera anicteric, conjunctiva clear. No lid lag. EARS, NOSE, THROAT: Ears normal, nares patent, oropharynx clear without exudates. Moist mucous membranes. NECK: Normal range of motion, supple without lymphadenopathy, JVD, or masses. LUNGS: Breath sounds equal, clear to auscultation bilaterally. No wheezes, and no crackles. No accessory muscle use. HEART: Regular rate and rhythm, normal S1 and S2 without murmur, rub or gallop. ABDOMEN: Soft, nontender, not distended, normoactive bowel sounds, no guarding, no rebound, no masses. No hepatomegaly or splenomegaly. MUSCULOSKELETAL: Normal range of motion at all joints. No bony deformities or tenderness. No CVA tenderness. UPPER EXTREMITIES: 2+ pulses, warm, well-perfused. No cyanosis. No clubbing. Cap refill <2 seconds. No peripheral edema. LOWER EXTREMITIES: 2+ pulses, warm, well-perfused. No calf tenderness. No peripheral edema. NEUROLOGICAL: Cranial nerves II-XII intact. Normal speech. Normal gait. PSYCHIATRIC: Cooperative. Good eye contact. Appropriate mood and affect. SKIN: Warm, dry, normal turgor, no rashes or lesions noted. Laboratory Results - last 24 hr 09/15/19 09/16/19 09/16/19 20:49 16:04 22:39 WBC RBC Hgb Hct MCV MCH MCHC RDW Plt Count MPV Absolute Neuts (auto) Neutrophils % Lymphocytes % Monocytes % Eosinophils % Basophils % Nucleated RBC % Sodium Potassium Chloride Carbon Dioxide Anion Gap BUN Creatinine Est GFR (CKD-EPI)AfAm Est GFR (CKD-EPI)NonAf POC Glucometer 155 227 207 Random Glucose Calcium Phosphorus Magnesium Total Bilirubin AST ALT Alkaline Phosphatase Total Protein Albumin 09/17/19 09/17/19 09/17/19 04:11 05:38 05:38 WBC 6.2 RBC 3.26 L Hgb 10.6 L Hct 31.8 L MCV 97.4 H MCH 32.4 MCHC 33.3 RDW 13.9 Plt Count 250 MPV 8.8 Absolute Neuts (auto) 3.7 Neutrophils % 60.2 D Lymphocytes % 27.7 D Monocytes % 6.7 Eosinophils % 4.0 D Basophils % 1.4 Nucleated RBC % 0 Sodium 137 Potassium 3.6 Chloride 101 Carbon Dioxide 30 Anion Gap 5 L BUN 25.6 H Creatinine 1.1 Est GFR (CKD-EPI)AfAm 56.08 Est GFR (CKD-EPI)NonAf 48.39 POC Glucometer 126 Random Glucose 103 Calcium 8.3 L Phosphorus 5.0 H Magnesium 1.7 L Total Bilirubin 0.4 AST 22 ALT 21 Alkaline Phosphatase 190 H Total Protein 6.0 L Albumin 2.5 L 09/17/19 09/17/19 06:32 11:15 WBC RBC Hgb Hct MCV MCH MCHC RDW Plt Count MPV Absolute Neuts (auto) Neutrophils % Lymphocytes % Monocytes % Eosinophils % Basophils % Nucleated RBC % Sodium Potassium Chloride Carbon Dioxide Anion Gap BUN Creatinine Est GFR (CKD-EPI)AfAm Est GFR (CKD-EPI)NonAf POC Glucometer 110 303 Random Glucose Calcium Phosphorus Magnesium Total Bilirubin AST ALT Alkaline Phosphatase Total Protein Albumin Active Medications Generic Name Dose Route Start Last Admin Trade Name Freq PRN Reason Stop Dose Admin Acetaminophen 650 mg 09/15/19 18:13 09/16/19 12:43 Tylenol - PO 650 mg Q6H PRN Administration PAIN LEVEL 4 - 6 Albuterol/Ipratropium 1 amp 09/15/19 20:00 09/17/19 11:50 Duoneb - NEB Not Given RQID [facility] Chlorhexidine Gluconate 1 applic 09/15/19 22:00 09/16/19 22:20 Hibiclens For Decolonization - TP 1 applic HS [facility] Administration Docusate Sodium 100 mg 09/15/19 22:00 09/17/19 10:06 Colace - PO 100 mg BID [facility] Administration Famotidine 20 mg 09/16/19 10:00 09/17/19 10:06 Pepcid - PO 20 mg DAILY [facility] Administration Furosemide 40 mg 09/15/19 19:00 09/17/19 06:21 Lasix Injection - IVPUSH 40 mg 0600,1400,2000 [facility] Administration Heparin Sodium (Porcine) 5,000 unit 09/15/19 22:00 09/17/19 06:21 Heparin - SQ 5,000 unit TID [facility] Administration Hydrochlorothiazide 25 mg 09/17/19 14:15 Hctz - PO DAILY [facility] Insulin Aspart 1 vial 09/15/19 22:00 09/17/19 11:50 Novolog Vial Sliding Scale - SQ 6 units ACHS [facility] Administration Protocol Levothyroxine Sodium 200 mcg 09/16/19 07:00 09/17/19 06:21 Synthroid - PO 200 mcg 0700 [facility] Administration Losartan Potassium 50 mg 09/16/19 10:00 09/16/19 12:20 Cozaar - PO Not Given DAILY [facility] Metoclopramide HCl 10 mg 09/15/19 18:59 Reglan - PO TID PRN NAUSEA AND/OR VOMITING Morphine Sulfate 2 mg 09/15/19 19:40 09/17/19 13:25 Morphine Sulfate IVPUSH 2 mg Q6H PRN Administration PAIN LEVEL 7 - 10 Mupirocin 1 applic 09/15/19 22:00 09/17/19 10:07 Bactroban Ointment (For Decolonization) - NS 09/20/19 21:59 1 applic BID [facility] Administration Nicotine 21 mg 09/16/19 10:00 11/04/19 10:06 Nicoderm Patch - TD 21 mg DAILY [facility] Administration Senna 2 tab 09/15/19 22:00 09/16/19 22:20 Senna - PO 2 tab HS [facility] Administration Sodium Chloride 2 spray 09/15/19 20:07 09/16/19 22:35 [place] Nasal [place] - NS 2 spray TID PRN Administration NASAL CONGESTION ASSESSMENT/PLAN: CHB of unclear etiology DM2 Hypothyroid HTN Asthma OA Fibromyalgia Chronic pain PLAN: -Cardiology to see in AM -Endocrine consulted - have pacing pads on and connected to monitor at all times -Atropine is not effective in CHB - will use external pacing and Dopa or Epi if decompensates -If HD unstable-Dr Enmanuel Lozano to be notified for IVP placement -Consider stopping abx - do not believe she is infected. No infiltrate on CT. R pleural effusion may be related to pelvic/abdominal mass, ?malignant. -f/u abdomen/pelvic imaging -Continue home medications -DVT PPx Dispo : transfer to tele ATTENDING PHYSICIAN STATEMENT I saw and evaluated the patient. I reviewed the resident's note and discussed the case with the resident. I agree with the resident's findings and plan as documented. SUBJECTIVE: OBJECTIVE: ASSESSMENT AND PLAN:
[2019-09-17] MEDS: HYDROCHLOROTHIAZIDE 25 MG TABLET (FP) PO SCH (14:35)
--- NOTE | 2019-09-17 15:06 | EKG ---
Test Reason : Blood Pressure : / mmHG Vent. Rate : 076 BPM Atrial Rate : 076 BPM P-R Int : 170 ms QRS Dur : 094 ms QT Int : 426 ms P-R-T Axes : 069 -48 078 degrees QTc Int : 479 ms NORMAL SINUS RHYTHM LEFT ANTERIOR FASCICULAR BLOCK ABNORMAL ECG WHEN COMPARED WITH ECG OF 16-SEP-2019 10:02, NO EVIDENCE OF JUNCTIONAL RHYTHM OR COMPLETE HEART BLOCK T WAVE VARIATION Confirmed by MANPREET BHAKTA, ZO ([id number]) on 09/17/2019 3:06:25 PM Referred By: ARACELI GIRALDO Confirmed By:ZO CASE MD
--- NOTE | 2019-09-17 15:19 | EKG ---
Test Reason : Blood Pressure : / mmHG Vent. Rate : 055 BPM Atrial Rate : 079 BPM P-R Int : 000 ms QRS Dur : 086 ms QT Int : 468 ms P-R-T Axes : 000 000 006 degrees QTc Int : 447 ms SINUS RHYTHM WITH COMPLETE HEART BLOCK AND JUNCTIONAL RHYTHM SEPTAL INFARCT (CITED ON OR BEFORE 15-SEP-2019) POSSIBLE LATERAL INFARCT , AGE UNDETERMINED ABNORMAL ECG WHEN COMPARED WITH ECG OF 15-SEP-2019 14:26, NO SIGNIFICANT CHANGE WAS FOUND Confirmed by ZO CASE MD ([id number]) on 09/17/2019 3:19:29 PM Referred By: Confirmed By:ZO CASE MD
--- NOTE | 2019-09-17 16:16 | PN ---
Progress Note, Physician Chief Complaint: No new complaints History of Present Illness: This is a 78 year old woman with a pmh HTN, HLD, DMII, hypothyroid, smoker, asthma, fibromyalgia, and arthritis. She was admitted with 2 month history of abdominal swelling, LE swelling and 40lb weight gain. found to be in complete heart block in ER with narrow complex escape rhythm. She was avoiding taking levothyroxine because she was told to only take it on an empty stomach and needed to eat in the AM because of hypoglycemia. TSH was 32.8. The complete heart block resolved and she is now in NSR at 60 - 70 BPM. BP remains elevated 194/72 mmHg. - Current Medication List Current Medications: Active Medications Acetaminophen (Tylenol -) 650 mg PO Q6H PRN PRN Reason: PAIN LEVEL 4 - 6 Last Admin: 09/16/19 12:43 Dose: 650 mg Albuterol/Ipratropium (Duoneb -) 1 amp NEB RQID [facility] Last Admin: 09/17/19 16:09 Dose: 1 amp Chlorhexidine Gluconate (Hibiclens For Decolonization -) 1 applic TP HS [facility] Last Admin: 09/16/19 22:20 Dose: 1 applic Docusate Sodium (Colace -) 100 mg PO BID [facility] Last Admin: 09/17/19 10:06 Dose: 100 mg Famotidine (Pepcid -) 20 mg PO DAILY [facility] Last Admin: 09/17/19 10:06 Dose: 20 mg Furosemide (Lasix Injection -) 40 mg IVPUSH 0600,1400,2000 [facility] Last Admin: 09/17/19 14:34 Dose: 40 mg Heparin Sodium (Porcine) (Heparin -) 5,000 unit SQ TID [facility] Last Admin: 09/17/19 14:35 Dose: 5,000 unit Hydrochlorothiazide (Hctz -) 25 mg PO DAILY [facility] Last Admin: 09/17/19 14:35 Dose: 25 mg Insulin Aspart (Novolog Vial Sliding Scale -) 1 vial SQ ACHS [facility]; Protocol Last Admin: 09/17/19 11:50 Dose: 6 units Levothyroxine Sodium (Synthroid -) 200 mcg PO 0700 [facility] Last Admin: 09/17/19 06:21 Dose: 200 mcg Losartan Potassium (Cozaar -) 50 mg PO DAILY [facility] Last Admin: 09/16/19 12:20 Dose: Not Given Metoclopramide HCl (Reglan -) 10 mg PO TID PRN PRN Reason: NAUSEA AND/OR VOMITING Morphine Sulfate (Morphine Sulfate) 2 mg IVPUSH Q6H PRN PRN Reason: PAIN LEVEL 7 - 10 Last Admin: 09/17/19 13:25 Dose: 2 mg Mupirocin (Bactroban Ointment (For Decolonization) -) 1 applic NS BID [facility] Stop: 09/20/19 21:59 Last Admin: 09/17/19 10:07 Dose: 1 applic Nicotine (Nicoderm Patch -) 21 mg TD DAILY [facility] Last Admin: 09/17/19 10:06 Dose: 21 mg Senna (Senna -) 2 tab PO HS [facility] Last Admin: 09/16/19 22:20 Dose: 2 tab Sodium Chloride ([place] Nasal [place] -) 2 spray NS TID PRN PRN Reason: NASAL CONGESTION Last Admin: 09/16/19 22:35 Dose: 2 spray - Objective Vital Signs: Vital Signs Temperature 98.0 F 09/17/19 13:05 Pulse Rate 79 09/17/19 13:05 Respiratory Rate 22 H 09/17/19 13:05 Blood Pressure 194/72 H 09/17/19 13:05 O2 Sat by Pulse Oximetry (%) 95 09/17/19 07:53 Constitutional: Yes: No Distress Eyes: Yes: WNL HENT: Yes: WNL Neck: Yes: WNL Cardiovascular: Yes: Regular Rate and Rhythm Respiratory: Yes: Rales (Bibasilar) Gastrointestinal: Yes: Soft Extremities: Yes: WNL Edema: LLE: Trace, RLE: Trace Neurological: Yes: Alert, Oriented Labs: CBC, BMP 09/17/19 05:38 09/17/19 05:38 INR, PTT INR 1.05 (0.83-1.09) 09/16/19 05:35 Assessment/Plan 78 year old woman with a pmh HTN, HLD, DMII, hypothyroid, smoker, asthma, fibromyalgia, and arthritis. She was admitted with 2 month history of abdominal swelling, LE swelling and 40lb weight gain. found to be in complete heart block in ER with narrow complex escape rhythm. She was avoiding taking levothyroxine because she was told to only take it on an empty stomach and needed to eat in the AM because of hypoglycemia. TSH was 32.8. The complete heart block resolved and she is now in NSR at 60 - 70 BPM. BP remains elevated 194/72 mmHg. Complete Heart Block: Seems to have completely resolved Transfer to [facility] so we can continue to monitor Continue to avoid AV sadiq slowing meds including nondihydropyridine Ca++ channel blockers and beta blockers Continue thyroid hormone replacement therapy Would send lyme titers and will need to follow up on the results as an outpatient Echocardiogram pending No indication at this time for PPM, however if heart block returns, will need to reconsider CHF Continue Lasix 40 mg IV daily Follow I's/O's/Wt's/Lytes Continue losartan 50 mg PO daily HTN BP now is 194/72 mmHg Would add amlodipine 5 mg PO daily
--- NOTE | 2019-09-17 17:17 | PN ---
Physical Exam: SUBJECTIVE: Patient seen and examined at the bedside. OBJECTIVE: Patient is a 78 year old female with a significant past medical history of current every day smoker, DM II (on metformin), hypothyroidism , hypertension, HLD, fibromyalgia, asthma, osteoarthritis presents to ED with c/o body aches, rapid weight gain and SOB. Patient reports significant weight loss 2-3 months ago, followed by rapid water retention associated with mild shortness of breath over the last 60 days. Her volume overload and dyspnea worsened and included chest discomfort and she presented to the ED for further evaluation. imaging: Ekg: L SB-vent rate of 59 bpm with complete heart block, now resolved. CXR with mild congestive findings and some atelectasis or infiltrate at the right base Vital Signs Period Temp Pulse Resp BP Sys/[place] Pulse Ox Last 24 Hr 97.8 F-98.4 F 59-81 14-27 150-194/56-86 95-97 GENERAL: The patient is awake, alert, and fully oriented, in mild respiratory distress HEAD: Normal with no signs of trauma. EYES: PERRL, extraocular movements intact, sclera anicteric, conjunctiva clear. No ptosis. ENT: Ears normal, nares patent, oropharynx clear without exudates, moist mucous membranes. NECK: Trachea midline, full range of motion, supple. LUNGS: fine crackles at bilateral bases. on 2 liters of supplemental oxygen HEART: Regular rate and rhythm, S1, S2 without murmur, rub or gallop. ABDOMEN: obese abdomen, likely has ascites, with a hard mass felt on RUQ. EXTREMITIES: edema +3 from upper thighs to ankles. NEUROLOGICAL: Normal speech, gait not observed. PSYCH: Normal mood, normal affect. SKIN: Warm, dry, normal turgor, no rashes or lesions noted Laboratory Results - last 24 hr 09/15/19 09/16/19 09/17/19 20:49 22:39 04:11 WBC RBC Hgb Hct MCV MCH MCHC RDW Plt Count MPV Absolute Neuts (auto) Neutrophils % Lymphocytes % Monocytes % Eosinophils % Basophils % Nucleated RBC % Sodium Potassium Chloride Carbon Dioxide Anion Gap BUN Creatinine Est GFR (CKD-EPI)AfAm Est GFR (CKD-EPI)NonAf POC Glucometer 155 207 126 Random Glucose Calcium Phosphorus Magnesium Total Bilirubin AST ALT Alkaline Phosphatase Total Protein Albumin 09/17/19 09/17/1919 05:38 05:38 06:32 WBC 6.2 RBC 3.26 L Hgb 10.6 L Hct 31.8 L MCV 97.4 H MCH 32.4 MCHC 33.3 RDW 13.9 Plt Count 250 MPV 8.8 Absolute Neuts (auto) 3.7 Neutrophils % 60.2 D Lymphocytes % 27.7 D Monocytes % 6.7 Eosinophils % 4.0 D Basophils % 1.4 Nucleated RBC % 0 Sodium 137 Potassium 3.6 Chloride 101 Carbon Dioxide 30 Anion Gap 5 L BUN 25.6 H Creatinine 1.1 Est GFR (CKD-EPI)AfAm 56.08 Est GFR (CKD-EPI)NonAf 48.39 POC Glucometer 110 Random Glucose 103 Calcium 8.3 L Phosphorus 5.0 H Magnesium 1.7 L Total Bilirubin 0.4 AST 22 ALT 21 Alkaline Phosphatase 190 H Total Protein 6.0 L Albumin 2.5 L 09/17/19 09/17/19 11:15 17:00 WBC RBC Hgb Hct MCV MCH MCHC RDW Plt Count MPV Absolute Neuts (auto) Neutrophils % Lymphocytes % Monocytes % Eosinophils % Basophils % Nucleated RBC % Sodium Potassium Chloride Carbon Dioxide Anion Gap BUN Creatinine Est GFR (CKD-EPI)AfAm Est GFR (CKD-EPI)NonAf POC Glucometer 303 132 Random Glucose Calcium Phosphorus Magnesium Total Bilirubin AST ALT Alkaline Phosphatase Total Protein Albumin Active Medications Generic Name Dose Route Start Last Admin Trade Name Freq PRN Reason Stop Dose Admin Acetaminophen 650 mg 09/15/19 18:13 09/16/19 12:43 Tylenol - PO 650 mg Q6H PRN Administration PAIN LEVEL 4 - 6 Albuterol/Ipratropium 1 amp 09/15/19 20:00 09/17/19 16:09 Duoneb - NEB 1 amp RQID [facility] Administration Chlorhexidine Gluconate 1 applic 09/15/19 22:00 09/16/19 22:20 Hibiclens For Decolonization - TP 1 applic HS [facility] Administration Docusate Sodium 100 mg 09/15/19 22:00 09/17/19 10:06 Colace - PO 100 mg BID [facility] Administration Famotidine 20 mg 09/16/19 10:00 09/17/19 10:06 Pepcid - PO 20 mg DAILY [facility] Administration Furosemide 40 mg 09/15/19 19:00 09/17/19 14:34 Lasix Injection - IVPUSH 40 mg 0600,1400,2000 [facility] Administration Heparin Sodium (Porcine) 5,000 unit 09/15/19 22:00 09/17/19 14:35 Heparin - SQ 5,000 unit TID [facility] Administration Hydrochlorothiazide 25 mg 09/17/19 14:15 09/17/19 14:35 Hctz - PO 25 mg DAILY [facility] Administration Insulin Aspart 1 vial 09/15/19 22:00 09/17/19 11:50 Novolog Vial Sliding Scale - SQ 6 units ACHS [facility] Administration Protocol Levothyroxine Sodium 200 mcg 09/16/19 07:00 09/17/19 06:21 Synthroid - PO 200 mcg 0700 [facility] Administration Losartan Potassium 50 mg 09/16/19 10:00 09/16/19 12:20 Cozaar - PO Not Given DAILY [facility] Metoclopramide HCl 10 mg 09/15/19 18:59 Reglan - PO TID PRN NAUSEA AND/OR VOMITING Morphine Sulfate 2 mg 09/15/19 19:40 09/17/19 13:25 Morphine Sulfate IVPUSH 2 mg Q6H PRN Administration PAIN LEVEL 7 - 10 Mupirocin 1 applic 09/15/19 22:00 09/17/19 10:07 Bactroban Ointment (For Decolonization) - NS 09/20/19 21:59 1 applic BID [facility] Administration Nicotine 21 mg 09/16/19 10:00 09/17/19 10:06 Nicoderm Patch - TD 21 mg DAILY [facility] Administration Senna 2 tab 09/15/19 22:00 09/16/19 22:20 Senna - PO 2 tab HS [facility] Administration Sodium Chloride 2 spray 09/15/19 20:07 09/16/19 22:35 [place] Nasal [place] - NS 2 spray TID PRN Administration NASAL CONGESTION ASSESSMENT/PLAN: Problem List - Problems (1) Volume overload Assessment/Plan: anasarca on lasix 80mg tid monitor daily weights, strict intake and output echo monitor kidney function Code(s): E87.70 - FLUID OVERLOAD, UNSPECIFIED (2) Heart block, AV Assessment/Plan: sinus rhythm with now intermittent complete heart block and junctional escape rhythm cont tele monitoring Continue to avoid AV sadiq slowing agents lyme titers pending TTE showed normal LVEF normal RV function, mod to severe TR, severe pah, mild mitral regurg appreciate cardiology consultation Code(s): I44.30 - UNSPECIFIED ATRIOVENTRICULAR BLOCK (3) Asthma Assessment/Plan: not in acute exacerbation, shortness of breath likely secondary to volume overload on supplemental oxygen to maintains sats above 92%. Code(s): J45.909 - UNSPECIFIED ASTHMA, UNCOMPLICATED (4) Atelectasis of right lung Code(s): J98.11 - ATELECTASIS (5) Chronic pain Code(s): G89.29 - OTHER CHRONIC PAIN (6) DMII (diabetes mellitus, type 2) Assessment/Plan: monitor bgms, novolog ss Code(s): E11.9 - TYPE 2 DIABETES MELLITUS WITHOUT COMPLICATIONS (7) HTN (hypertension) Assessment/Plan: on lasix tid 80mg, BP improving with lasix. per cardiology stop home diltiazem , and hold all antihypertensive meds, but if needed avoid av sadiq blockers. Code(s): I10 - ESSENTIAL (PRIMARY) HYPERTENSION (8) Hypothyroidism Assessment/Plan: endocrinlogy consulted Code(s): E03.9 - HYPOTHYROIDISM, UNSPECIFIED (9) Tobacco dependence Assessment/Plan: nicotine patch Code(s): F17.200 - NICOTINE DEPENDENCE, UNSPECIFIED, UNCOMPLICATED (10) Prophylactic measure Assessment/Plan: FEN no additional IVF needed diabetic low sodium diet monitor electrolytes DVT heparin sq Dipso maintain on tele full code Code(s): Z29.9 - ENCOUNTER FOR PROPHYLACTIC MEASURES, UNSPECIFIED Visit type - Emergency Visit Emergency Visit: Yes ED Registration Date: 09/15/19 Care time: The patient presented to the Emergency Department on the above date and was hospitalized for further evaluation of their emergent condition. - New Patient This patient is new to me today: No - Critical Care Critical Care patient: No - Discharge Referral Referred to [facility] No
--- NOTE | 2019-09-17 17:47 | PN ---
Physical Exam: SUBJECTIVE: Patient seen and examined. No acute events overnight. Denies chest pain, SOB. Last BM 4d ago OBJECTIVE: Vital Signs Period Temp Pulse Resp BP Sys/[place] Pulse Ox Last 24 Hr 97.8 F-98.4 F 59-81 14-27 150-194/56-86 95-97 GENERAL: The patient is awake, alert, and fully oriented, in no acute distress. LUNGS: Breath sounds equal, clear to auscultation bilaterally, no wheezes, no crackles, no accessory muscle use. HEART: Regular rate and rhythm, S1, S2 without murmur, rub or gallop. ABDOMEN: Soft, mildly tender to palpation L>R AB, distended, normoactive bowel sounds, no guarding, no rebound, no masses. EXTREMITIES: warm, 2+ pitting edema vanna NEUROLOGICAL: AOx3. Normal speech Laboratory Results - last 24 hr 09/15/19 09/16/19 09/17/19 20:49 22:39 04:11 WBC RBC Hgb Hct MCV MCH MCHC RDW Plt Count MPV Absolute Neuts (auto) Neutrophils % Lymphocytes % Monocytes % Eosinophils % Basophils % Nucleated RBC % Sodium Potassium Chloride Carbon Dioxide Anion Gap BUN Creatinine Est GFR (CKD-EPI)AfAm Est GFR (CKD-EPI)NonAf POC Glucometer 155 207 126 Random Glucose Calcium Phosphorus Magnesium Total Bilirubin AST ALT Alkaline Phosphatase Total Protein Albumin 09/17/19 09/17/19 09/17/19 05:38 05:38 06:32 WBC 6.2 RBC 3.26 L Hgb 10.6 L Hct 31.8 L MCV 97.4 H MCH 32.4 MCHC 33.3 RDW 13.9 Plt Count 250 MPV 8.8 Absolute Neuts (auto) 3.7 Neutrophils % 60.2 D Lymphocytes % 27.7 D Monocytes % 6.7 Eosinophils % 4.0 D Basophils % 1.4 Nucleated RBC % 0 Sodium 137 Potassium 3.6 Chloride 101 Carbon Dioxide 30 Anion Gap 5 L BUN 25.6 H Creatinine 1.1 Est GFR (CKD-EPI)AfAm 56.08 Est GFR (CKD-EPI)NonAf 48.39 POC Glucometer 110 Random Glucose 103 Calcium 8.3 L Phosphorus 5.0 H Magnesium 1.7 L Total Bilirubin 0.4 AST 22 ALT 21 Alkaline Phosphatase 190 H Total Protein 6.0 L Albumin 2.5 L 09/17/19 09/17/19 11:15 17:00 WBC RBC Hgb Hct MCV MCH MCHC RDW Plt Count MPV Absolute Neuts (auto) Neutrophils % Lymphocytes % Monocytes % Eosinophils % Basophils % Nucleated RBC % Sodium Potassium Chloride Carbon Dioxide Anion Gap BUN Creatinine Est GFR (CKD-EPI)AfAm Est GFR (CKD-EPI)NonAf POC Glucometer 303 132 Random Glucose Calcium Phosphorus Magnesium Total Bilirubin AST ALT Alkaline Phosphatase Total Protein Albumin Active Medications Generic Name Dose Route Start Last Admin Trade Name Freq PRN Reason Stop Dose Admin Acetaminophen 650 mg 09/15/19 18:13 09/16/19 12:43 Tylenol - PO 650 mg Q6H PRN Administration PAIN LEVEL 4 - 6 Albuterol/Ipratropium 1 amp 09/15/19 20:00 09/17/19 16:09 Duoneb - NEB 1 amp RQID CARLOS Administration Chlorhexidine Gluconate 1 applic 09/15/19 22:00 09/16/19 22:20 Hibiclens For Decolonization - TP 1 applic HS CARLOS Administration Docusate Sodium 100 mg 09/15/19 22:00 09/17/19 10:06 Colace - PO 100 mg BID CARLOS Administration Famotidine 20 mg 09/16/19 10:00 09/17/19 10:06 Pepcid - PO 20 mg DAILY CARLOS Administration Furosemide 40 mg 09/15/19 19:00 09/17/19 14:34 Lasix Injection - IVPUSH 40 mg 0600,1400,2000 CARLOS Administration Heparin Sodium (Porcine) 5,000 unit 09/15/19 22:00 09/17/19 14:35 Heparin - SQ 5,000 unit TID CARLOS Administration Hydrochlorothiazide 25 mg 09/17/19 14:15 09/17/19 14:35 Hctz - PO 25 mg DAILY CARLOS Administration Insulin Aspart 1 vial 09/15/19 22:00 09/17/19 17:30 Novolog Vial Sliding Scale - SQ Not Given ACHS [facility] Protocol Levothyroxine Sodium 200 mcg 09/16/19 07:00 09/17/19 06:21 Synthroid - PO 200 mcg 0700 CARLOS Administration Losartan Potassium 50 mg 09/16/19 10:00 09/16/19 12:20 Cozaar - PO Not Given DAILY CARLOS Metoclopramide HCl 10 mg 09/15/19 18:59 Reglan - PO TID PRN NAUSEA AND/OR VOMITING Morphine Sulfate 2 mg 09/15/19 19:40 09/17/19 13:25 Morphine Sulfate IVPUSH 2 mg Q6H PRN Administration PAIN LEVEL 7 - 10 Mupirocin 1 applic 09/15/19 22:00 09/17/19 10:07 Bactroban Ointment (For Decolonization) - NS 09/20/19 21:59 1 applic BID CARLOS Administration Nicotine 21 mg 09/16/19 10:00 09/17/19 10:06 Nicoderm Patch - TD 21 mg DAILY CARLOS Administration Senna 2 tab 09/15/19 22:00 09/16/19 22:20 Senna - PO 2 tab HS CARLOS Administration Sodium Chloride 2 spray 09/15/19 20:07 09/16/19 22:35 [place] - NS 2 spray TID PRN Administration NASAL CONGESTION ASSESSMENT/PLAN: Vee Calvillo is a 78yF w PMHx T2DM, hypothyroidism, HTN, fibromyalgia, asthma, OA presenting with progressive worsening body aches, weight gain, and SOB d/t complete heart block. Cards - complete heart block spontaneously reverted to sinus rhythm, hx HTN - restarted home Losartan, HCTZ, amlodipine, continue Lasix for HTN - pacer pads in place - Atropine is not effective in CHB - use external pacing and Dopa or Epi if decompensates - avoid AV sadiq slowing meds including nondihydropyridine Ca+ channel blockers and beta blockers - pending echo - DVT ppx - appreciate cards recs Pulm - breathing RA, O2sat wnl - CXR 09/16 showed R pleural effusion - duonebs Neuro - AOx3, no active issues - tylenol PRN pain - reglan PRN nausea - nicotine patch Heme/onc - appreciate onc recs to r/o malignancy from CT findings GI - CT A/P 09/15 showed cirrhosis, dilated CBD, partially distended gallbladder, fluid filled slightly dilated bowel in R mid AB pelvis w hyperemia, small amount ascites - DM/Na diet - colase, senna for constipation, last BM 09/14 - GI ppx - removed wiggins - I/O Endo - elevated TSH, hx hypothyroidism, DM - continue Synthroid - repeat TSH in 4 weeks - ISS - appreciate endo recs ID - afebrile, WBC wnl - stopped azithromycin, zosyn d/t low concern for infection - urine cx 09/15 negative - pending Lyme FEN - no fluids - hyperPhos, hypoMg - repleted - DM/Na diet PPX - heparin - pepcid Dispo : transfer to tele Visit type - Emergency Visit Emergency Visit: Yes ED Registration Date: 09/15/19 Care time: The patient presented to the Emergency Department on the above date and was hospitalized for further evaluation of their emergent condition. - New Patient This patient is new to me today: Yes Date on this admission: 09/17/19 - Critical Care Critical Care patient: Yes Total Critical Care Time (in minutes): 35 Critical Care Statement: The care of this patient involved high complexity decision making to prevent further life threatening deterioration of the patient 's condition and/or to evaluate & treat vital organ system(s) failure or risk of failure. ATTENDING PHYSICIAN STATEMENT I saw and evaluated the patient. I reviewed the resident's note and discussed the case with the resident. I agree with the resident's findings and plan as documented. SUBJECTIVE: OBJECTIVE: ASSESSMENT AND PLAN:
[2019-09-17] MEDS: CHLORHEXIDINE GLUCONATE 4% CLEANSER FOR DECOLONIZATION TP SCH (22:05)
[2019-09-17] MEDS: ACETAMINOPHEN 325 MG TABLET (FP) PO PRN (22:57)
[2019-09-17] MEDS ORDERED: METOCLOPRAMIDE HCL 10 MG TABLET (FP) PO PRN (23:01)
[2019-09-17] MEDS ORDERED: SODIUM CHLORIDE NASAL SPRAY 44 ML BOTTLE NS PRN (23:01)
[2019-09-17] MEDS: SENNOSIDES 8.6MG TABLET (FP) PO SCH (23:11)
[2019-09-18] MEDS: MORPHINE SULFATE 2 MG/ML VIAL IVPUSH PRN ×3 (02:59→23:46)
[2019-09-18] MEDS ORDERED: PT OWN MED DRAWER 7, Y5N ONE ×2 (05:50→06:45)
[2019-09-18] MEDS: FUROSEMIDE 40 MG/4 ML INJECTABLE VIAL IVPUSH SCH ×3 (05:55→20:35)
[2019-09-18] MEDS: HEPARIN NA (PORCINE) 5,000 UNITS/ML 1ML VIAL SQ SCH ×3 (05:55→21:16)
--- NOTE | 2019-09-18 06:30 | PN ---
Teaching Attending Note Name of Resident: Shola López ATTENDING PHYSICIAN STATEMENT I saw and evaluated the patient. I reviewed the resident's note and discussed the case with the resident. I agree with the resident's findings and plan as documented. ASSESSMENT AND PLAN: 78 year old woman with a pmh HTN, HLD, DMII, hypothyroid, smoker, asthma, fibromyalgia, arthritis admitted with 2 month history of abdominal swelling, LE swelling and 40lb weight gain. found to be in complete heart block in ER with narrow complex escape rhythm. she was started on IV Lasix and has had improvement in her edema. CTA -- no PE/cirrhosis/prominent CBD/ moderate ascites, rt. pleural effusion Started on synthroid for TSH of 32 Effusions--? cirrhosis related, CHF related vs hypothyroidism Would consult GI and request pulmonrary input aswell regarding ascites/effusion Seems to be improving on diuresis ? diagnostic tap anemia--macrocytic --? hypothyroid related check B12/folate/iron studies/ferritin normal coags
[2019-09-18] MEDS: INSULIN SLIDING SCALE (NOVOLOG) 1 VIAL SQ SCH ×4 (06:40→21:18)
[2019-09-18] MEDS: LEVOTHYROXINE NA 100 MCG TABLET (FP) PO SCH (06:41)
[2019-09-18] MEDS: ACETAMINOPHEN 325 MG TABLET (FP) PO PRN ×3 (06:41→21:16)
--- NOTE | 2019-09-18 06:51 | ECHO ---
Name: TATIANA TORRE Exam:Adult Echocardiogram Study Date: 09/17/2019 08:19 AM Age: 78 yrs Reason For Study: volume over load heart block Height: 60 in Weight: 161 lb BSA: 1.7 m2 BP: 178/75 mmHg MMode/2D Measurements & Calculations IVSd: 0.76 cm Ao root diam: 3.1 cm LVIDd: 4.1 cm LA dimension: 4.6 cm LVIDs: 2.6 cm ACS: 1.5 cm LVPWd: 1.0 cm IVSs: 0.94 cm LVPWs: 1.2 cm EDV(Teich): 75.1 ml ESV(Teich): 24.8 ml Doppler Measurements & Calculations MV E max chan: 142.2 cm/sec Ao V2 max: 178.0 cm/sec MV A max chan: 93.3 cm/sec Ao max P.7 mmHg MV E/A: 1.5 Ao V2 mean: 119.1 cm/sec Ao mean P.5 mmHg Ao V2 VTI: 33.1 cm MR max chan: 614.1 cm/sec TR max chan: 370.7 cm/sec MR max P.2 mmHg TR max P.0 mmHg Med Peak E' Chan: 4.3 cm/sec Med E/e': 33.2 Lat Peak E' Chan: 5.8 cm/sec Lat E/e': 24.5 Procedure A complete two-dimensional transthoracic echocardiogram was performed (2D, M-mode, Doppler and color flow Doppler). Left Ventricle The left ventricle is normal in size. Left ventricular systolic function is normal. Ejection Fraction = 65- 70%. No regional wall motion abnormalities noted. Right Ventricle The right ventricle is normal size. The right ventricular systolic function is normal. Atria The left atrium is mildly dilated. Right atrial size is normal. Mitral Valve There is moderate to severe mitral annular calcification. There is mild mitral regurgitation. Tricuspid Valve The tricuspid valve is normal in structure and function. There is moderate to severe tricuspid regurg itation. Pulmonary artery systolic pressure is at least 69 mmHg if RA pressure is assumed 3 mmHg. Aortic Valve There is mild aortic sclerosis.;. No aortic regurgitation is present. Pulmonic Valve The pulmonic valve is not well visualized. Trace to mild pulmonic valvular regurgitation. Great Vessels The aortic root is normal size. Pericardium/Pleura There is no pericardial effusion. Interpretation Summary The left ventricle is normal in size. Left ventricular systolic function is normal. No regional wall motion abnormalities noted. Ejection Fraction = 65-70%. The right ventricular systolic function is normal. The left atrium is mildly dilated. Right atrial size is normal. There is moderate to severe mitral annular calcification. There is mild mitral regurgitation. There is moderate to severe tricuspid regurgitation. Pulmonary artery systolic pressure is at least 69 mmHg if RA pressure is assumed 3 mmHg There is mild aortic sclerosis. Trace to mild pulmonic valvular regurgitation. Kirit Thompson MD 09/17/2019 02:00 PM
[2019-09-18 07:11] LABS: PHOSPHOROUS 4.2 mg/dL (2.5-4.9)
[2019-09-18] MEDS: ALBUTEROL SO4 2.5/IPRATROPIUM 0.5 INH SOL 3 ML VIAL.NEB. NEB SCH ×4 (08:01→20:16)
[2019-09-18 08:06] LABS: EOS % 3.7 % (0-4.5); HEMATOCRIT 35.5 % (32.4-45.2); HEMOGLOBIN 11.7 GM/dL (10.7-15.3); MCH 32.3 pg (25.7-33.7); MEAN CELL VOLUME 98.1 fl (80-96); MEAN PLT VOLUME 8.7 fl (7.5-11.1); MONO % 7.4 % (3.8-10.2); NEUT % 65.9 % (42.8-82.8); PLATELET COUNT 245 K/MM3 (134-434); RBC 3.62 M/mm3 (3.60-5.2); RDW 13.8 % (11.6-15.6); WHITE BLOOD COUNT 6.9 K/mm3 (4.0-10.0)
--- NOTE | 2019-09-18 08:11 | PN ---
Progress Note, Physician Chief Complaint: Resting comfortably in bed. States her abdomen is much less distended History of Present Illness: Patient is a 78 year old female with a significant past medical history of current every day smoker, DM II (on metformin), hypothyroidism , hypertension, HLD, fibromyalgia, asthma, osteoarthritis presents to ED with c/o body aches, rapid weight gain and SOB. Patient reports significant weight loss 2-3 months ago, followed by rapid water retention associated with mild shortness of breath over the last 60 days. Her volume overload and dyspnea worsened and included chest discomfort and she presented to the ED for further evaluation. - Current Medication List Current Medications: Active Medications Acetaminophen (Tylenol -) 650 mg PO Q6H PRN PRN Reason: PAIN LEVEL 4 - 6 Last Admin: 09/18/19 06:41 Dose: 650 mg Albuterol/Ipratropium (Duoneb -) 1 amp NEB RQID [facility] Last Admin: 09/18/19 08:01 Dose: 1 amp Docusate Sodium (Colace -) 100 mg PO BID [facility] Famotidine (Pepcid -) 20 mg PO DAILY [facility] Furosemide (Lasix Injection -) 40 mg IVPUSH 0600,1400,2000 [facility] Last Admin: 09/18/19 05:55 Dose: 40 mg Heparin Sodium (Porcine) (Heparin -) 5,000 unit SQ TID [facility] Last Admin: 09/18/19 05:55 Dose: 5,000 unit Hydrochlorothiazide (Hctz -) 25 mg PO DAILY [facility] Last Admin: 09/17/19 14:35 Dose: 25 mg Insulin Aspart (Novolog Vial Sliding Scale -) 1 vial SQ ACHS [facility]; Protocol Last Admin: 09/18/19 06:40 Dose: Not Given Levothyroxine Sodium (Synthroid -) 200 mcg PO 0700 [facility] Last Admin: 09/18/19 06:41 Dose: 200 mcg Losartan Potassium (Cozaar -) 50 mg PO DAILY [facility] Metoclopramide HCl (Reglan -) 10 mg PO TID PRN PRN Reason: NAUSEA AND/OR VOMITING Morphine Sulfate (Morphine Sulfate) 2 mg IVPUSH Q6H PRN PRN Reason: PAIN LEVEL 7 - 10 Last Admin: 09/18/19 02:59 Dose: 2 mg Nicotine (Nicoderm Patch -) 21 mg TD DAILY [facility] Senna (Senna -) 2 tab PO HS CARLOS Sodium Chloride ([place] -) 2 spray NS TID PRN PRN Reason: NASAL CONGESTION - Objective Vital Signs: Vital Signs Temperature 98.3 F 09/18/19 06:00 Pulse Rate 88 09/18/19 06:00 Respiratory Rate 18 09/18/19 06:00 Blood Pressure 110/73 09/18/19 06:00 O2 Sat by Pulse Oximetry (%) 98 09/17/19 22:00 Constitutional: Yes: Well Nourished, No Distress, Calm Eyes: Yes: WNL, Conjunctiva Clear HENT: Yes: WNL, Atraumatic, Normocephalic Neck: Yes: WNL, Supple, Trachea Midline Cardiovascular: Yes: WNL, Regular Rate and Rhythm Respiratory: Yes: WNL, Regular, CTA Bilaterally, Diminished (at bases) Gastrointestinal: Yes: Soft, Abdomen, Obese, Distention (improved) ...Rectal Exam: Yes: Deferred Genitourinary: Yes: WNL Breast(s): Yes: WNL Musculoskeletal: Yes: WNL Extremities: Yes: WNL Edema: No Peripheral Pulses WNL: Yes Peripheral Pulses: Left Radial: 2+, Right Radial: 2+, Left Doralis Pedis: 2+, Right Dorsalis Pedis: 2+, Left Femoral: 2+, Right Femoral: 2+ Integumentary: Yes: WNL Neurological: Yes: WNL, Alert, Oriented ...Motor Strength: WNL Psychiatric: Yes: WNL Labs: INR, PTT INR 1.05 (0.83-1.09) 09/16/19 05:35 - ....Imaging Chest X-ray: Report Reviewed (. CXR with mild congestive findings and some atelectasis or infiltrate at the right ba), Image Reviewed EKG: Report Reviewed (Ekg: L SB-vent rate of 59 bpm with complete heart block, now resolved) Problem List - Problems (1) Fibromyalgia Assessment/Plan: supportive care c/w PT Code(s): M79.7 - FIBROMYALGIA (2) Osteoarthritis Code(s): M19.90 - UNSPECIFIED OSTEOARTHRITIS, UNSPECIFIED SITE (3) DMII (diabetes mellitus, type 2) Assessment/Plan: BGM AC/HS with novolog sliding scale diabetic diet Code(s): E11.9 - TYPE 2 DIABETES MELLITUS WITHOUT COMPLICATIONS (4) HTN (hypertension) Assessment/Plan: BP remains hogn amlodopine 5mg added c/w hctx, cozaar avoid betablockers continue to monitor Code(s): I10 - ESSENTIAL (PRIMARY) HYPERTENSION (5) Heart block, AV Assessment/Plan: sinus rhythm with now intermittent complete heart block and junctional escape rhythm cont tele monitoring Continue to avoid AV sadiq slowing agents c/w synthroid lyme titers pending TTE showed normal LVEF normal RV function, mod to sev TR, severe PAH, mild MR appreciate cardiology consultation No indication at this time for PPM Code(s): I44.30 - UNSPECIFIED ATRIOVENTRICULAR BLOCK (6) Hypothyroidism Assessment/Plan: TSH 31.7 c/w synthroid appreciate endocrinology consltation Code(s): E03.9 - HYPOTHYROIDISM, UNSPECIFIED (7) Prophylactic measure Assessment/Plan: FEN no additional IVF needed diabetic low sodium diet monitor electrolytes DVT heparin sq Dipso maintain on tele full code discharge planning Code(s): Z29.9 - ENCOUNTER FOR PROPHYLACTIC MEASURES, UNSPECIFIED (8) Tobacco dependence Assessment/Plan: c/w nicotine patch counseled on smoking cessation Code(s): F17.200 - NICOTINE DEPENDENCE, UNSPECIFIED, UNCOMPLICATED (9) Asthma Assessment/Plan: c/w duonebs Code(s): J45.909 - UNSPECIFIED ASTHMA, UNCOMPLICATED Visit type - Emergency Visit Emergency Visit: Yes ED Registration Date: 09/15/19 Care time: The patient presented to the Emergency Department on the above date and was hospitalized for further evaluation of their emergent condition. - New Patient This patient is new to me today: Yes Date on this admission: 09/18/19 - Critical Care Critical Care patient: No - Discharge Referral Referred to [facility] No
[2019-09-18 08:55] LABS: ALBUMIN 2.7 g/dl (3.4-5.0); BILIRUBIN,TOTAL 0.5 mg/dL (0.2-1); BLOOD UREA NITROGEN 17.8 mg/dL (7-18); CALCIUM 8.6 mg/dL (8.5-10.1); CREATININE 0.9 mg/dL (0.55-1.3); MAGNESIUM 1.6 mg/dL (1.8-2.4); POTASSIUM 3.5 mmol/L (3.5-5.1); TOT PROT 6.7 g/dl (6.4-8.2)
[2019-09-18] MEDS: FAMOTIDINE 20 MG TABLET PO SCH (09:13)
[2019-09-18] MEDS: HYDROCHLOROTHIAZIDE 25 MG TABLET (FP) PO SCH (09:13)
[2019-09-18] MEDS: DOCUSATE SODIUM 100 MG CAPSULE (FP) PO SCH ×2 (09:13→21:15)
[2019-09-18] MEDS: NICOTINE 21 MG/24 HOURS TOPICAL PATCH TD SCH (09:13)
[2019-09-18] MEDS: LOSARTAN POTASSIUM 50 MG TABLET (FP) PO SCH (09:13)
--- NOTE | 2019-09-18 10:05 | PN ---
Progress Note, Physician History of Present Illness: seen and examined today in nad. states she is feeling much better. edema is significantly improved. no overnight events or new complaints. - Current Medication List Current Medications: Active Medications Acetaminophen (Tylenol -) 650 mg PO Q6H PRN PRN Reason: PAIN LEVEL 4 - 6 Last Admin: 09/18/19 06:41 Dose: 650 mg Albuterol/Ipratropium (Duoneb -) 1 amp NEB RQID [facility] Last Admin: 09/18/19 08:01 Dose: 1 amp Docusate Sodium (Colace -) 100 mg PO BID [facility] Last Admin: 09/18/19 09:13 Dose: 100 mg Famotidine (Pepcid -) 20 mg PO DAILY [facility] Last Admin: 09/18/19 09:13 Dose: 20 mg Furosemide (Lasix Injection -) 40 mg IVPUSH 0600,1400,2000 [facility] Last Admin: 09/18/19 05:55 Dose: 40 mg Heparin Sodium (Porcine) (Heparin -) 5,000 unit SQ TID [facility] Last Admin: 09/18/19 05:55 Dose: 5,000 unit Hydrochlorothiazide (Hctz -) 25 mg PO DAILY [facility] Last Admin: 09/18/19 09:13 Dose: 25 mg Insulin Aspart (Novolog Vial Sliding Scale -) 1 vial SQ ACHS [facility]; Protocol Last Admin: 09/18/19 06:40 Dose: Not Given Levothyroxine Sodium (Synthroid -) 200 mcg PO 0700 [facility] Last Admin: 09/18/19 06:41 Dose: 200 mcg Losartan Potassium (Cozaar -) 50 mg PO DAILY [facility] Last Admin: 09/18/19 09:13 Dose: 50 mg Metoclopramide HCl (Reglan -) 10 mg PO TID PRN PRN Reason: NAUSEA AND/OR VOMITING Morphine Sulfate (Morphine Sulfate) 2 mg IVPUSH Q6H PRN PRN Reason: PAIN LEVEL 7 - 10 Last Admin: 09/18/19 02:59 Dose: 2 mg Nicotine (Nicoderm Patch -) 21 mg TD DAILY [facility] Last Admin: 09/18/19 09:13 Dose: 21 mg Senna (Senna -) 2 tab PO HS [facility] Sodium Chloride ([place] -) 2 spray NS TID PRN PRN Reason: NASAL CONGESTION - Objective Vital Signs: Vital Signs Temperature 97.9 F 09/18/19 08:00 Pulse Rate 75 09/18/19 08:00 Respiratory Rate 18 09/18/19 08:00 Blood Pressure 192/90 H 09/18/19 08:00 O2 Sat by Pulse Oximetry (%) 98 09/17/19 22:00 Constitutional: Yes: No Distress, Calm Eyes: Yes: Conjunctiva Clear, EOM Intact HENT: Yes: Atraumatic, Normocephalic Neck: Yes: Supple, Trachea Midline Cardiovascular: Yes: Regular Rate and Rhythm, S1, S2. No: Bradycardia, Tachycardia, Pulse Irregular, Bruit, JVD, Gallop, Murmur, Rub, S3, S4, Varicosities Respiratory: Yes: Regular, CTA Bilaterally, On Nasal O2. No: Rales, Rhonchi, SOB, Wheezes Gastrointestinal: Yes: Normal Bowel Sounds, Soft Musculoskeletal: Yes: WNL Extremities: Yes: WNL Edema: No Peripheral Pulses WNL: Yes Peripheral Pulses: Left Doralis Pedis: 2+, Right Dorsalis Pedis: 2+ Neurological: Yes: Alert, Oriented Psychiatric: Yes: Alert, Oriented Labs: CBC, BMP 09/18/19 05:35 09/18/19 05:35 INR, PTT INR 1.05 (0.83-1.09) 09/16/19 05:35 - ....Imaging Chest X-ray: Report Reviewed, Image Reviewed EKG: Report Reviewed, Image Reviewed Other: Report Reviewed, Image Reviewed (tele-sinus rhythm with intermittent complete heart block and junctional escape rhythm) Assessment/Plan 78 year old woman with a pmh HTN, HLD, DMII, hypothyroid, smoker, asthma, fibromyalgia, and arthritis. She was admitted with 2 month history of abdominal swelling, LE swelling and 40lb weight gain. found to be in complete heart block in ER with narrow complex escape rhythm. She was avoiding taking levothyroxine because she was told to only take it on an empty stomach and needed to eat in the AM because of hypoglycemia. TSH was 32.8. The complete heart block resolved and she is now in NSR at 60 - 70 BPM. BP remains elevated 194/72 mmHg. Complete Heart Block: tele reviewed sinus rhythm with now intermittent complete heart block and junctional escape rhythm seems to be improving with synthroid but still with intermittent heart block cont tele monitoring Continue to avoid AV sadiq slowing meds including nondihydropyridine Ca++ channel blockers and beta blockers Continue thyroid hormone replacement therapy fup lyme titers Echocardiogram showed normal LVEF normal RV function, mod to sev TR, severe PAH , mild MR heart block seems to be resolving with treatment of hypothyroid but unknown how long this will take No indication at this time for PPM, however if heart block continues will need to consider further CHF-volume status significantly improving -Echocardiogram showed normal LVEF normal RV function, mod to sev TR, severe PAH , mild MR -volume status significantly improved -Continue Lasix 40 mg IV daily -Follow I's/O's/Wt's/Lytes -Continue losartan 50 mg PO daily HTN -bp improved overnight -again uncontrolled this am -re-evaluate after am meds -on losartan -caution with HCTZ with lasix, monitor electrolytes -can add amlodipine 5 mg PO daily
[2019-09-18] MEDS: POLYETHYLENE GLYCOL 3350 119 GM BTL PO SCH ×2 (11:11→21:15)
[2019-09-18] MEDS: amLODIPine BESYLATE 5 MG TABLET (FP) PO SCH (11:40)
--- NOTE | 2019-09-18 11:45 | PN ---
Progress Note, Physician History of Present Illness: pulmonary alert,feeling better,resp distress - Current Medication List Current Medications: Active Medications Acetaminophen (Tylenol -) 650 mg PO Q6H PRN PRN Reason: PAIN LEVEL 4 - 6 Last Admin: 09/18/19 06:41 Dose: 650 mg Albuterol/Ipratropium (Duoneb -) 1 amp NEB RQID [facility] Last Admin: 09/18/19 08:01 Dose: 1 amp Amlodipine Besylate (Norvasc -) 5 mg PO DAILY [facility] Last Admin: 09/18/19 11:40 Dose: 5 mg Docusate Sodium (Colace -) 100 mg PO BID [facility] Last Admin: 09/18/19 09:13 Dose: 100 mg Famotidine (Pepcid -) 20 mg PO DAILY [facility] Last Admin: 09/18/19 09:13 Dose: 20 mg Furosemide (Lasix Injection -) 40 mg IVPUSH 0600,1400,2000 [facility] Last Admin: 09/18/19 05:55 Dose: 40 mg Heparin Sodium (Porcine) (Heparin -) 5,000 unit SQ TID [facility] Last Admin: 09/18/19 05:55 Dose: 5,000 unit Hydrochlorothiazide (Hctz -) 25 mg PO DAILY [facility] Last Admin: 09/18/19 09:13 Dose: 25 mg Insulin Aspart (Novolog Vial Sliding Scale -) 1 vial SQ [facility]; Protocol Last Admin: 09/18/19 11:09 Dose: 2 units Levothyroxine Sodium (Synthroid -) 200 mcg PO 0700 [facility] Last Admin: 09/18/19 06:41 Dose: 200 mcg Losartan Potassium (Cozaar -) 50 mg PO DAILY [facility] Last Admin: 09/18/19 09:13 Dose: 50 mg Metoclopramide HCl (Reglan -) 10 mg PO TID PRN PRN Reason: NAUSEA AND/OR VOMITING Morphine Sulfate (Morphine Sulfate) 2 mg IVPUSH Q6H PRN PRN Reason: PAIN LEVEL 7 - 10 Last Admin: 09/18/19 02:59 Dose: 2 mg Nicotine (Nicoderm Patch -) 21 mg TD DAILY [facility] Last Admin: 09/18/19 09:13 Dose: 21 mg Polyethylene Glycol (Miralax (For Daily Use) -) 17 gm PO BID [facility] Last Admin: 09/18/19 11:11 Dose: 17 gm Senna (Senna -) 2 tab PO HS [facility] Sodium Chloride ([place] Nasal [place] -) 2 spray NS TID PRN PRN Reason: NASAL CONGESTION - Objective Vital Signs: Vital Signs Temperature 97.9 F 09/18/19 08:00 Pulse Rate 75 09/18/19 08:00 Respiratory Rate 18 09/18/19 08:00 Blood Pressure 181/85 H 09/18/19 11:41 O2 Sat by Pulse Oximetry (%) 98 09/18/19 09:00 Constitutional: Yes: Well Nourished, Calm Eyes: Yes: WNL HENT: Yes: WNL Neck: Yes: WNL Cardiovascular: Yes: Regular Rate and Rhythm, S1, S2 Respiratory: Yes: Diminished Gastrointestinal: Yes: Normal Bowel Sounds, Soft Edema: Yes Labs: CBC, BMP 09/18/19 05:35 09/18/19 05:35 INR, PTT INR 1.05 (0.83-1.09) 09/16/19 05:35 Problem List - Problems (1) Chronic pain Code(s): G89.29 - OTHER CHRONIC PAIN (2) DMII (diabetes mellitus, type 2) Code(s): E11.9 - TYPE 2 DIABETES MELLITUS WITHOUT COMPLICATIONS (3) Fibromyalgia Code(s): M79.7 - FIBROMYALGIA (4) HTN (hypertension) Code(s): I10 - ESSENTIAL (PRIMARY) HYPERTENSION (5) Heart block, AV Code(s): I44.30 - UNSPECIFIED ATRIOVENTRICULAR BLOCK (6) Tobacco dependence Code(s): F17.200 - NICOTINE DEPENDENCE, UNSPECIFIED, UNCOMPLICATED (7) Volume overload Code(s): E87.70 - FLUID OVERLOAD, UNSPECIFIED (8) CHF (congestive heart failure) Code(s): I50.9 - HEART FAILURE, UNSPECIFIED Assessment/Plan ASSESSMENT: CHB of unclear etiology DM2 Hypothyroid HTN Asthma OA Fibromyalgia Chronic pain CHF PLAN: -Synthroid -Would monitor off ABX for now -Hold all AVN blocking agents -DVT prophylaxis -Fabiola CORNEJO
--- NOTE | 2019-09-18 13:20 | PN ---
Progress Note, Physician History of Present Illness: patient stable no new issues - Current Medication List Current Medications: Active Medications Acetaminophen (Tylenol -) 650 mg PO Q6H PRN PRN Reason: PAIN LEVEL 4 - 6 Last Admin: 09/18/19 06:41 Dose: 650 mg Albuterol/Ipratropium (Duoneb -) 1 amp NEB RQID [facility] Last Admin: 09/18/19 08:01 Dose: 1 amp Amlodipine Besylate (Norvasc -) 5 mg PO DAILY [facility] Last Admin: 09/18/19 11:40 Dose: 5 mg Docusate Sodium (Colace -) 100 mg PO BID [facility] Last Admin: 09/18/19 09:13 Dose: 100 mg Famotidine (Pepcid -) 20 mg PO DAILY [facility] Last Admin: 09/18/19 09:13 Dose: 20 mg Furosemide (Lasix Injection -) 40 mg IVPUSH 0600,1400,2000 [facility] Last Admin: 09/18/19 13:11 Dose: 40 mg Heparin Sodium (Porcine) (Heparin -) 5,000 unit SQ TID [facility] Last Admin: 09/18/19 13:10 Dose: 5,000 unit Hydrochlorothiazide (Hctz -) 25 mg PO DAILY [facility] Last Admin: 09/18/19 09:13 Dose: 25 mg Insulin Aspart (Novolog Vial Sliding Scale -) 1 vial SQ [facility]; Protocol Last Admin: 09/18/19 11:09 Dose: 2 units Levothyroxine Sodium (Synthroid -) 200 mcg PO 0700 [facility] Last Admin: 09/18/19 06:41 Dose: 200 mcg Losartan Potassium (Cozaar -) 50 mg PO DAILY [facility] Last Admin: 09/18/19 09:13 Dose: 50 mg Metoclopramide HCl (Reglan -) 10 mg PO TID PRN PRN Reason: NAUSEA AND/OR VOMITING Morphine Sulfate (Morphine Sulfate) 2 mg IVPUSH Q6H PRN PRN Reason: PAIN LEVEL 7 - 10 Last Admin: 09/18/19 02:59 Dose: 2 mg Nicotine (Nicoderm Patch -) 21 mg TD DAILY [facility] Last Admin: 09/18/19 09:13 Dose: 21 mg Polyethylene Glycol (Miralax (For Daily Use) -) 17 gm PO BID [facility] Last Admin: 09/18/19 11:11 Dose: 17 gm Senna (Senna -) 2 tab PO HS [facility] Sodium Chloride ([place] Nasal [place] -) 2 spray NS TID PRN PRN Reason: NASAL CONGESTION - Objective Vital Signs: Vital Signs Temperature 97.9 F 09/18/19 08:00 Pulse Rate 75 09/18/19 08:00 Respiratory Rate 18 09/18/19 08:00 Blood Pressure 181/85 H 09/18/19 11:41 O2 Sat by Pulse Oximetry (%) 98 09/18/19 09:00 Constitutional: Yes: No Distress, Calm Cardiovascular: Yes: Regular Rate and Rhythm, S1, S2 Respiratory: Yes: Regular, CTA Bilaterally Gastrointestinal: Yes: Normal Bowel Sounds, Soft Musculoskeletal: Yes: WNL Extremities: Yes: WNL Neurological: Yes: Alert, Oriented Psychiatric: Yes: Alert, Oriented Labs: CBC, BMP 09/18/19 05:35 09/18/19 05:35 INR, PTT INR 1.05 (0.83-1.09) 09/16/19 05:35 Assessment/Plan CHB of unclear etiology DM2 Hypothyroid HTN Asthma OA Fibromyalgia Chronic pain plan continue current mgmt rest as per the team
--- NOTE | 2019-09-18 14:26 | CONS ---
GASTROINTESTINAL CONSULTATION DATE OF CONSULTATION: DATE OF DICTATION: 09/18/2019 HISTORY OF PRESENT ILLNESS: The patient is a 78-year-old female with a past medical history of diabetes, hypothyroidism, hypertension, hyperlipidemia, fibromyalgia, asthma, osteoarthritis. She presented to the hospital with body aches and a rapid weight gain, 25 pounds in one month, associated with shortness of breath, also with increased abdominal girth. She presented to the emergency room for evaluation of her chest discomfort, back pain, and shortness of breath, as well as her volume overload. She states that her doctors are in [facility]. She, however, is a poor historian. In the emergency room, she was found to be in complete heart block, also with anasarca, and a questionable pelvic mass on a CT scan of the abdomen with anasarca and ascites, as well as what appeared to be a cirrhotic liver. She is unclear about having a history of liver cirrhosis and she does not recall her doctors' names. At this time, she states she is feeling better on the current medical regimen. She denies abdominal pain, nausea, vomiting, hematemesis, melena. She states she has been constipated and noticed some trace blood in her stool when she wipes; however, there was no gross hematochezia. PAST MEDICAL AND SURGICAL HISTORY: As listed in the HPI with the addition of a cholecystectomy. ALLERGIES: No known drug allergies. SOCIAL HISTORY: Smoked in the past, does not drink, and no intravenous drug abuse. REVIEW OF SYSTEMS: As per the HPI. Pertinent positives include chest pain, there is no fever or chills, and weight gain. She states she had a colonoscopy 5 years ago and never had an upper endoscopy. Again, these tests were done in [facility]. She does not recall the name of the GI doctor. PHYSICAL EXAMINATION: Vital Signs: Temperature 97, pulse 75, blood pressure 1811/85, respiratory rate 12, oxygen saturation 98% on room air. General: In no acute distress. HEENT: Anicteric sclera. Cardiovascular: S1, S2. Regular rate and rhythm. Lungs: Bilaterally clear to auscultation. Abdomen: Soft with some flank dullness and nontender. Extremities: Positive for edema. LABORATORIES: White blood cell count 6.9, hemoglobin 11 and hematocrit 35, MCV 98, platelet count 245. INR 1. Sodium 137, potassium 3.5, BUN 17, creatinine 0.9, glucose 108. Total bilirubin 0.5, AST 27, ALT 23, alkaline phosphatase 211. Urine 2+ protein. Serologies for Lyme are pending. Urine culture is negative. She had a CTA of the chest which was negative for PE. Abdomen and pelvis CT scan done on September 15 revealed atheromatous plaques; infiltrate in the right upper lobe; nodular contour of the liver with a prominent portal vein; liver cirrhosis; normal-size spleen; gallbladder was poorly visualized; she states she had her gallbladder taken out, however; dilation of the common bile duct, 11 x 13 mm without any stones; adrenals are normal; ascites; questionable mild ileus; moderate amount of fecal residue in the colon. She had a transvaginal ultrasound to rule out an ovarian and uterine lesion. Calcifications here were consistent with a leiomyomata, no uterine masses, and again pelvic free fluid was visualized. She also had an echocardiogram which revealed ejection fraction 65% to 70%; [id number] mitral annular calcification; mild MR; [id number] TR; and mild pulmonary valvular regurgitation. IMPRESSION: Patient is admitted with volume overload, and found to have valvular heart disease and congestive heart failure, in addition with abdominal ascites, and imaging findings that are consistent with appears to be cirrhosis. RECOMMENDATIONS: Abdominal ultrasound with possible diagnostic paracentesis. Fluid should be sent for protein, albumin, cell count with differential, Gram stain, culture, LDH, cytology. Monitor her weights, I's and O's. Liver serologies will be ordered to exclude chronic liver disease. Monitor liver tests daily while hospitalized. Further recommendations pending above results. We will also attempt to contact the daughter, and obtain the physicians she has seen in [facility] and obtain results of previous testing, and speak about questionable underlying liver disease. DO VIPUL LANCE/[id number]
[2019-09-18 21:07] LABS: CK-MM 100 % (97-100)
[2019-09-18] MEDS: SENNOSIDES 8.6MG TABLET (FP) PO SCH (21:15)
[2019-09-19] MEDS ORDERED: MELATONIN 5 MG TABLETS PO ONE (01:28)
[2019-09-19] MEDS: ACETAMINOPHEN 325 MG TABLET (FP) PO PRN ×2 (04:06→13:44)
[2019-09-19] MEDS: MORPHINE SULFATE 2 MG/ML VIAL IVPUSH PRN (05:55)
[2019-09-19] MEDS: INSULIN SLIDING SCALE (NOVOLOG) 1 VIAL SQ SCH ×4 (06:30→21:40)
[2019-09-19] MEDS: FUROSEMIDE 40 MG/4 ML INJECTABLE VIAL IVPUSH SCH ×3 (06:30→20:01)
[2019-09-19] MEDS: LEVOTHYROXINE NA 100 MCG TABLET (FP) PO SCH (06:30)
[2019-09-19 06:49] LABS: BASO % 1.2 % (0-2.0); HEMATOCRIT 33.2 % (32.4-45.2); HEMOGLOBIN 11.2 GM/dL (10.7-15.3); LYMPH % 19.5 % (8-40); MCH 32.5 pg (25.7-33.7); MCHC 33.7 g/dl (32.0-36.0); MEAN CELL VOLUME 96.6 fl (80-96); MEAN PLT VOLUME 8.7 fl (7.5-11.1); MONO % 8.6 % (3.8-10.2); NEUT % 66.7 % (42.8-82.8); PLATELET COUNT 233 K/MM3 (134-434); RBC 3.43 M/mm3 (3.60-5.2); RDW 13.8 % (11.6-15.6); WHITE BLOOD COUNT 6.3 K/mm3 (4.0-10.0)
[2019-09-19 06:53] LABS: INR 1.09 (0.83-1.09); PROTHROMBIN TIME (PATIENT) 12.9 SEC (9.7-13.0)
[2019-09-19 07:04] LABS: ALBUMIN 2.9 g/dl (3.4-5.0); BILIRUBIN,TOTAL 0.4 mg/dL (0.2-1); BLOOD UREA NITROGEN 19.8 mg/dL (7-18); CALCIUM 8.8 mg/dL (8.5-10.1); CREATININE 0.9 mg/dL (0.55-1.3); MAGNESIUM 1.7 mg/dL (1.8-2.4); POTASSIUM 3.3 mmol/L (3.5-5.1); TOT PROT 6.5 g/dl (6.4-8.2)
[2019-09-19] MEDS: ALBUTEROL SO4 2.5/IPRATROPIUM 0.5 INH SOL 3 ML VIAL.NEB. NEB SCH ×4 (07:25→20:30)
--- NOTE | 2019-09-19 07:30 | PN ---
Progress Note, Physician Chief Complaint: Appears anxious today awaiting paracentesis. Concerned that her "Blood sugar was dropping" History of Present Illness: Patient is a 78 year old female with a significant past medical history of current every day smoker, DM II (on metformin), hypothyroidism , hypertension, HLD, fibromyalgia, asthma, osteoarthritis presents to ED with c/o body aches, rapid weight gain and SOB. Patient reports significant weight loss 2-3 months ago, followed by rapid water retention associated with mild shortness of breath over the last 60 days. Her volume overload and dyspnea worsened and included chest discomfort and she presented to the ED for further evaluation. - Current Medication List Current Medications: Active Medications Acetaminophen (Tylenol -) 650 mg PO Q6H PRN PRN Reason: PAIN LEVEL 4 - 6 Last Admin: 09/19/19 04:06 Dose: 650 mg Albuterol/Ipratropium (Duoneb -) 1 amp NEB RQID [facility] Last Admin: 09/18/19 20:16 Dose: 1 amp Amlodipine Besylate (Norvasc -) 5 mg PO DAILY [facility] Last Admin: 09/18/19 11:40 Dose: 5 mg Docusate Sodium (Colace -) 100 mg PO BID [facility] Last Admin: 09/18/19 21:15 Dose: 100 mg Famotidine (Pepcid -) 20 mg PO DAILY [facility] Last Admin: 09/18/19 09:13 Dose: 20 mg Furosemide (Lasix Injection -) 40 mg IVPUSH 0600,1400,2000 [facility] Last Admin: 09/19/19 06:30 Dose: 40 mg Heparin Sodium (Porcine) (Heparin -) 5,000 unit SQ TID [facility] Last Admin: 09/18/19 21:16 Dose: 5,000 unit Hydrochlorothiazide (Hctz -) 25 mg PO DAILY [facility] Last Admin: 09/18/19 09:13 Dose: 25 mg Insulin Aspart (Novolog Vial Sliding Scale -) 1 vial SQ ACHS [facility]; Protocol Last Admin: 09/19/19 06:30 Dose: Not Given Levothyroxine Sodium (Synthroid -) 200 mcg PO 0700 [facility] Last Admin: 09/19/19 06:30 Dose: 200 mcg Losartan Potassium (Cozaar -) 50 mg PO DAILY [facility] Last Admin: 09/18/19 09:13 Dose: 50 mg Metoclopramide HCl (Reglan -) 10 mg PO TID PRN PRN Reason: NAUSEA AND/OR VOMITING Morphine Sulfate (Morphine Sulfate) 2 mg IVPUSH Q6H PRN PRN Reason: PAIN LEVEL 7 - 10 Last Admin: 09/19/19 05:55 Dose: 2 mg Nicotine (Nicoderm Patch -) 21 mg TD DAILY [facility] Last Admin: 09/18/19 09:13 Dose: 21 mg Polyethylene Glycol (Miralax (For Daily Use) -) 17 gm PO BID [facility] Last Admin: 09/18/19 21:15 Dose: 17 gm Senna (Senna -) 2 tab PO HS [facility] Last Admin: 09/18/19 21:15 Dose: 2 tab Sodium Chloride ([place] Nasal [place] -) 2 spray NS TID PRN PRN Reason: NASAL CONGESTION - Objective Vital Signs: Vital Signs Temperature 98.0 F 09/19/19 06:00 Pulse Rate 68 09/19/19 06:00 Respiratory Rate 18 09/19/19 06:00 Blood Pressure 156/69 09/19/19 06:00 O2 Sat by Pulse Oximetry (%) 100 09/18/19 21:00 Additional Findings/Remarks: Constitutional: Yes: Well Nourished, No Distress, Calm Eyes: Yes: WNL, Conjunctiva Clear HENT: Yes: WNL, Atraumatic, Normocephalic Neck: Yes: WNL, Supple, Trachea Midline Cardiovascular: Yes: WNL, Regular Rate and Rhythm Respiratory: Yes: WNL, Regular, CTA Bilaterally, Diminished (at bases) Gastrointestinal: Yes: Soft, Abdomen, Obese, Distention (improved) ...Rectal Exam: Yes: Deferred Genitourinary: Yes: WNL Breast(s): Yes: WNL Musculoskeletal: Yes: WNL Extremities: Yes: WNL Edema: No Peripheral Pulses WNL: Yes Peripheral Pulses: Left Radial: 2+, Right Radial: 2+, Left Doralis Pedis: 2+, Right Dorsalis Pedis: 2+, Left Femoral: 2+, Right Femoral: 2+ Integumentary: Yes: WNL Neurological: Yes: WNL, Alert, Oriented ...Motor Strength: WNL Psychiatric: Yes: WNL Labs: CBC, BMP 09/19/19 05:20 09/19/19 05:20 INR, PTT INR 1.09 (0.83-1.09) 09/19/19 05:20 - ....Imaging Ultrasound: Pending (US guided paracentesis) Problem List - Problems (1) Fibromyalgia Assessment/Plan: supportive care c/w PT Code(s): M79.7 - FIBROMYALGIA (2) Osteoarthritis Code(s): M19.90 - UNSPECIFIED OSTEOARTHRITIS, UNSPECIFIED SITE (3) DMII (diabetes mellitus, type 2) Assessment/Plan: BGM AC/HS with novolog sliding scale diabetic diet Code(s): E11.9 - TYPE 2 DIABETES MELLITUS WITHOUT COMPLICATIONS (4) HTN (hypertension) Assessment/Plan: BP remains hogn amlodopine 5mg added c/w hctx, cozaar avoid betablockers continue to monitor Code(s): I10 - ESSENTIAL (PRIMARY) HYPERTENSION (5) Heart block, AV Assessment/Plan: sinus rhythm with now intermittent complete heart block and junctional escape rhythm cont tele monitoring Continue to avoid AV sadiq slowing agents c/w synthroid lyme titers negative TTE showed normal LVEF normal RV function, mod to sev TR, severe PAH, mild MR appreciate cardiology consultation No indication at this time for PPM Code(s): I44.30 - UNSPECIFIED ATRIOVENTRICULAR BLOCK (6) Hypothyroidism Assessment/Plan: TSH 31.7 c/w synthroid appreciate endocrinology consltation Code(s): E03.9 - HYPOTHYROIDISM, UNSPECIFIED (7) Prophylactic measure Assessment/Plan: FEN no additional IVF needed diabetic low sodium diet monitor electrolytes DVT heparin sq Dipso maintain on tele full code discharge planning Code(s): Z29.9 - ENCOUNTER FOR PROPHYLACTIC MEASURES, UNSPECIFIED (8) Tobacco dependence Assessment/Plan: c/w nicotine patch counseled on smoking cessation Code(s): F17.200 - NICOTINE DEPENDENCE, UNSPECIFIED, UNCOMPLICATED (9) Asthma Assessment/Plan: c/w duonebs Code(s): J45.909 - UNSPECIFIED ASTHMA, UNCOMPLICATED (10) Ascites Assessment/Plan: diagnostic paracentesis pending Code(s): R18.8 - OTHER ASCITES Visit type - Emergency Visit Emergency Visit: Yes ED Registration Date: 09/15/19 Care time: The patient presented to the Emergency Department on the above date and was hospitalized for further evaluation of their emergent condition. - New Patient This patient is new to me today: No - Critical Care Critical Care patient: No - Discharge Referral Referred to [facility] Med P.C.: No
[2019-09-19] MEDS ORDERED: POTASSIUM CHLORIDE TABS 20 MEQ TABLET.ER (FP) PO ONE (09:00)
[2019-09-19] MEDS ORDERED: MAGNESIUM OXIDE 400 MG TABLET (FP) PO ONE (09:01)
[2019-09-19] MEDS: DOCUSATE SODIUM 100 MG CAPSULE (FP) PO SCH ×2 (09:15→21:39)
[2019-09-19] MEDS: NICOTINE 21 MG/24 HOURS TOPICAL PATCH TD SCH (09:15)
[2019-09-19] MEDS ORDERED: oxyCODONE HCL 5 MG TABLET PO PRN (09:15)
[2019-09-19] MEDS: HYDROCHLOROTHIAZIDE 25 MG TABLET (FP) PO SCH (09:15)
[2019-09-19] MEDS: LOSARTAN POTASSIUM 50 MG TABLET (FP) PO SCH (09:15)
[2019-09-19] MEDS: FAMOTIDINE 20 MG TABLET PO SCH (09:15)
[2019-09-19] MEDS: amLODIPine BESYLATE 5 MG TABLET (FP) PO SCH (09:15)
[2019-09-19] MEDS: POLYETHYLENE GLYCOL 3350 119 GM BTL PO SCH ×2 (10:42→21:39)
[2019-09-19] MEDS ORDERED: DEXTROSE 5%-0.45% SALINE 1,000 ML IV SCH (11:15)
--- NOTE | 2019-09-19 11:38 | PN ---
Progress Note, Physician History of Present Illness: stable no new issues - Current Medication List Current Medications: Active Medications Acetaminophen (Tylenol -) 650 mg PO Q6H PRN PRN Reason: PAIN LEVEL 4 - 6 Last Admin: 09/19/19 04:06 Dose: 650 mg Albuterol/Ipratropium (Duoneb -) 1 amp NEB RQID [facility] Last Admin: 09/19/19 11:11 Dose: 1 amp Amlodipine Besylate (Norvasc -) 5 mg PO DAILY [facility] Last Admin: 09/19/19 09:15 Dose: 5 mg Docusate Sodium (Colace -) 100 mg PO BID [facility] Last Admin: 09/19/19 09:15 Dose: 100 mg Famotidine (Pepcid -) 20 mg PO DAILY [facility] Last Admin: 09/19/19 09:15 Dose: 20 mg Furosemide (Lasix Injection -) 40 mg IVPUSH 0600,1400,2000 [facility] Last Admin: 09/19/19 06:30 Dose: 40 mg Heparin Sodium (Porcine) (Heparin -) 5,000 unit SQ TID [facility] Last Admin: 09/18/19 21:16 Dose: 5,000 unit Hydrochlorothiazide (Hctz -) 25 mg PO DAILY [facility] Last Admin: 09/19/19 09:15 Dose: 25 mg Dextrose/Sodium Chloride (D5-1/2ns -) 1,000 mls @ 75 mls/hr IV ASDIR [facility] Last Admin: 09/19/19 11:32 Dose: 75 mls/hr Insulin Aspart (Novolog Vial Sliding Scale -) 1 vial SQ ACHS [facility]; Protocol Last Admin: 09/19/19 06:30 Dose: Not Given Levothyroxine Sodium (Synthroid -) 200 mcg PO 0700 [facility] Last Admin: 09/19/19 06:30 Dose: 200 mcg Losartan Potassium (Cozaar -) 50 mg PO DAILY [facility] Last Admin: 09/19/19 09:15 Dose: 50 mg Metoclopramide HCl (Reglan -) 10 mg PO TID PRN PRN Reason: NAUSEA AND/OR VOMITING Nicotine (Nicoderm Patch -) 21 mg TD DAILY [facility] Last Admin: 09/19/19 09:15 Dose: 21 mg Oxycodone HCl (Roxicodone -) 5 mg PO Q6H PRN PRN Reason: PAIN LEVEL 7 - 10 Last Admin: 09/19/19 09:24 Dose: 5 mg Polyethylene Glycol (Miralax (For Daily Use) -) 17 gm PO BID [facility] Last Admin: 09/19/19 10:42 Dose: Not Given Senna (Senna -) 2 tab PO HS [facility] Last Admin: 09/18/19 21:15 Dose: 2 tab Sodium Chloride ([place] Nasal [place] -) 2 spray NS TID PRN PRN Reason: NASAL CONGESTION - Objective Vital Signs: Vital Signs Temperature 98.2 F 09/19/19 09:13 Pulse Rate 61 09/19/19 09:13 Respiratory Rate 17 09/19/19 09:13 Blood Pressure 188/71 H 09/19/19 09:13 O2 Sat by Pulse Oximetry (%) 100 09/18/19 21:00 Constitutional: Yes: No Distress, Calm Cardiovascular: Yes: S1, S2 Respiratory: Yes: Regular, CTA Bilaterally Gastrointestinal: Yes: Normal Bowel Sounds, Soft Musculoskeletal: Yes: WNL Extremities: Yes: WNL Neurological: Yes: Alert, Oriented Psychiatric: Yes: Alert, Oriented Labs: CBC, BMP 09/19/19 05:20 09/19/19 05:20 INR, PTT INR 1.09 (0.83-1.09) 09/19/19 05:20 Assessment/Plan CHB of unclear etiology DM2 Hypothyroid HTN Asthma OA Fibromyalgia Chronic pain plan continue current mgmt rest as per the team
--- NOTE | 2019-09-19 11:48 | PN.GI ---
GI Progress Note Subjective: Patient with multiple medical problems being followed by GI/Liver team for weight gain, anasarca, ascites, question of cirrhosis based in part on CT revealing recanalization of umbilical vein. No abdominal complaints at present. - Objective Vital Signs: Vital Signs Temperature 98.2 F 09/19/19 09:13 Pulse Rate 61 09/19/19 09:13 Respiratory Rate 17 09/19/19 09:13 Blood Pressure 188/71 H 09/19/19 09:13 O2 Sat by Pulse Oximetry (%) 100 09/18/19 21:00 Constitutional: Calm Eyes: No: Sclera Icterus Cardiovascular: Yes: Murmur, S1, S2. No: S4 Gastrointestinal Inspection: Yes: Distention ...Auscultate: Yes: Normoactive Bowel Sounds ...Palpate: Yes: Soft. No: Mass Labs: CBC, BMP 09/19/19 05:20 09/19/19 05:20 INR, PTT INR 1.09 (0.83-1.09) 09/19/19 05:20 Assessment/Plan CT with mild retroperitoneal lymphadenopathy, small to moderate amount of ascies. TVUS for abnormal CT without adenexal mass, with post-menopausal uterus and leiomyomata. Patient able to relay that her prior liver diagnosis was fatty liver and for which she followed periodically with Dr. Tristen Trevino in [facility]. AST and ALT normal. Alkaline [id number] Hepatitis serologies pending. Etiology of ascites uncertain. Very broad differential including cirrhosis from any etiology (fatty liver, viral, metabolic), vascular/hypercoagulable, malignancy, passive congestion. With normal platelets, doubt portal hypertension at this time. Please obtain abdominal sonogram with Doppler's to rule out vascular etiology. Add ANCA to existing serologies (possible primary biliary cholangitis) If able, diagnostic paracentesis depending on US results.
--- NOTE | 2019-09-19 13:49 | PN ---
Progress Note, Physician History of Present Illness: pulmonary alert,c/o abd pain,-sob - Current Medication List Current Medications: Active Medications Acetaminophen (Tylenol -) 650 mg PO Q6H PRN PRN Reason: PAIN LEVEL 4 - 6 Last Admin: 09/19/19 13:44 Dose: 650 mg Albuterol/Ipratropium (Duoneb -) 1 amp NEB RQID [facility] Last Admin: 09/19/19 11:11 Dose: 1 amp Amlodipine Besylate (Norvasc -) 5 mg PO DAILY [facility] Last Admin: 09/19/19 09:15 Dose: 5 mg Docusate Sodium (Colace -) 100 mg PO BID [facility] Last Admin: 09/19/19 09:15 Dose: 100 mg Famotidine (Pepcid -) 20 mg PO DAILY [facility] Last Admin: 09/19/19 09:15 Dose: 20 mg Furosemide (Lasix Injection -) 40 mg IVPUSH 0600,1400,2000 [facility] Last Admin: 09/19/19 13:37 Dose: 40 mg Heparin Sodium (Porcine) (Heparin -) 5,000 unit SQ TID [facility] Last Admin: 09/18/19 21:16 Dose: 5,000 unit Hydrochlorothiazide (Hctz -) 25 mg PO DAILY [facility] Last Admin: 09/19/19 09:15 Dose: 25 mg Dextrose/Sodium Chloride (D5-1/2ns -) 1,000 mls @ 75 mls/hr IV ASDIR [facility] Last Admin: 09/19/19 11:32 Dose: 75 mls/hr Insulin Aspart (Novolog Vial Sliding Scale -) 1 vial SQ ACHS [facility]; Protocol Last Admin: 09/19/19 11:43 Dose: Not Given Levothyroxine Sodium (Synthroid -) 200 mcg PO 0700 [facility] Last Admin: 09/19/19 06:30 Dose: 200 mcg Losartan Potassium (Cozaar -) 50 mg PO DAILY [facility] Last Admin: 09/19/19 09:15 Dose: 50 mg Metoclopramide HCl (Reglan -) 10 mg PO TID PRN PRN Reason: NAUSEA AND/OR VOMITING Nicotine (Nicoderm Patch -) 21 mg TD DAILY [facility] Last Admin: 09/19/19 09:15 Dose: 21 mg Oxycodone HCl (Roxicodone -) 5 mg PO Q6H PRN PRN Reason: PAIN LEVEL 7 - 10 Last Admin: 09/19/19 09:24 Dose: 5 mg Polyethylene Glycol (Miralax (For Daily Use) -) 17 gm PO BID [facility] Last Admin: 09/19/19 10:42 Dose: Not Given Senna (Senna -) 2 tab PO HS [facility] Last Admin: 09/18/19 21:15 Dose: 2 tab Sodium Chloride ([place] Nasal [place] -) 2 spray NS TID PRN PRN Reason: NASAL CONGESTION - Objective Vital Signs: Vital Signs Temperature 98.2 F 09/19/19 09:13 Pulse Rate 61 09/19/19 09:13 Respiratory Rate 17 09/19/19 09:13 Blood Pressure 188/71 H 09/19/19 09:13 O2 Sat by Pulse Oximetry (%) 100 09/18/19 21:00 Constitutional: Yes: Calm, Thin Eyes: Yes: WNL HENT: Yes: WNL Neck: Yes: WNL Cardiovascular: Yes: Regular Rate and Rhythm, S1, S2 Respiratory: Yes: Diminished Gastrointestinal: Yes: Normal Bowel Sounds, Soft Extremities: Yes: WNL Edema: No Labs: CBC, BMP 09/19/19 05:20 09/19/19 05:20 INR, PTT INR 1.09 (0.83-1.09) 09/19/19 05:20 Problem List - Problems (1) Chronic pain Code(s): G89.29 - OTHER CHRONIC PAIN (2) DMII (diabetes mellitus, type 2) Code(s): E11.9 - TYPE 2 DIABETES MELLITUS WITHOUT COMPLICATIONS (3) Fibromyalgia Code(s): M79.7 - FIBROMYALGIA (4) HTN (hypertension) Code(s): I10 - ESSENTIAL (PRIMARY) HYPERTENSION (5) Heart block, AV Code(s): I44.30 - UNSPECIFIED ATRIOVENTRICULAR BLOCK (6) Tobacco dependence Code(s): F17.200 - NICOTINE DEPENDENCE, UNSPECIFIED, UNCOMPLICATED (7) Volume overload Code(s): E87.70 - FLUID OVERLOAD, UNSPECIFIED (8) CHF (congestive heart failure) Code(s): I50.9 - HEART FAILURE, UNSPECIFIED Assessment/Plan ASSESSMENT: CHB of unclear etiology DM2 Hypothyroid HTN Asthma OA Fibromyalgia Chronic pain CHF PLAN: -Synthroid -Hold all AVN blocking agents -DVT prophylaxis -Fabiola CORNEJO
--- NOTE | 2019-09-19 17:21 | PN ---
Progress Note, Physician Chief Complaint: No new complaints History of Present Illness: This is a 78 year old woman with a pmh HTN, HLD, DMII, hypothyroid, smoker, asthma, fibromyalgia, and arthritis. She was admitted with 2 month history of abdominal swelling, LE swelling and 40lb weight gain. found to be in complete heart block in ER with narrow complex escape rhythm. She was avoiding taking levothyroxine because she was told to only take it on an empty stomach and needed to eat in the AM because of hypoglycemia. TSH was 32.8. Intermittent 3rd degree heart block, with HR down to 48 BPM Isorhythmic dissociation also noted BP 119/58 mmHg. - Current Medication List Current Medications: Active Medications Acetaminophen (Tylenol -) 650 mg PO Q6H PRN PRN Reason: PAIN LEVEL 4 - 6 Last Admin: 09/19/19 13:44 Dose: 650 mg Albuterol/Ipratropium (Duoneb -) 1 amp NEB RQID [facility] Last Admin: 09/19/19 16:03 Dose: 1 amp Amlodipine Besylate (Norvasc -) 5 mg PO DAILY [facility] Last Admin: 09/19/19 09:15 Dose: 5 mg Docusate Sodium (Colace -) 100 mg PO BID [facility] Last Admin: 09/19/19 09:15 Dose: 100 mg Famotidine (Pepcid -) 20 mg PO DAILY [facility] Last Admin: 09/19/19 09:15 Dose: 20 mg Furosemide (Lasix Injection -) 40 mg IVPUSH 0600,1400,2000 [facility] Last Admin: 09/19/19 13:37 Dose: 40 mg Heparin Sodium (Porcine) (Heparin -) 5,000 unit SQ TID [facility] Last Admin: 09/18/19 21:16 Dose: 5,000 unit Hydrochlorothiazide (Hctz -) 25 mg PO DAILY [facility] Last Admin: 09/19/19 09:15 Dose: 25 mg Insulin Aspart (Novolog Vial Sliding Scale -) 1 vial SQ ACHS [facility]; Protocol Last Admin: 09/19/19 17:05 Dose: 4 units Levothyroxine Sodium (Synthroid -) 200 mcg PO 0700 [facility] Last Admin: 09/19/19 06:30 Dose: 200 mcg Losartan Potassium (Cozaar -) 50 mg PO DAILY [facility] Last Admin: 09/19/19 09:15 Dose: 50 mg Metoclopramide HCl (Reglan -) 10 mg PO TID PRN PRN Reason: NAUSEA AND/OR VOMITING Nicotine (Nicoderm Patch -) 21 mg TD DAILY [facility] Last Admin: 09/19/19 09:15 Dose: 21 mg Oxycodone HCl (Roxicodone -) 5 mg PO Q6H PRN PRN Reason: PAIN LEVEL 7 - 10 Last Admin: 09/19/19 09:24 Dose: 5 mg Polyethylene Glycol (Miralax (For Daily Use) -) 17 gm PO BID [facility] Last Admin: 09/19/19 10:42 Dose: Not Given Senna (Senna -) 2 tab PO HS [facility] Last Admin: 09/18/19 21:15 Dose: 2 tab Sodium Chloride ([place] Nasal [place] -) 2 spray NS TID PRN PRN Reason: NASAL CONGESTION - Objective Vital Signs: Vital Signs Temperature 99.6 F 09/19/19 14:47 Pulse Rate 50 L 09/19/19 14:47 Respiratory Rate 18 09/19/19 14:47 Blood Pressure 119/58 L 09/19/19 14:47 O2 Sat by Pulse Oximetry (%) 98 09/19/19 09:00 Constitutional: Yes: No Distress Eyes: Yes: WNL HENT: Yes: WNL Neck: Yes: WNL Cardiovascular: Yes: Regular Rate and Rhythm, S1, S2 (No murmurs) Respiratory: Yes: CTA Bilaterally Musculoskeletal: Yes: Muscle Pain Edema: LLE: Trace, RLE: Trace Neurological: Yes: Alert, Oriented (No MRHG) Labs: CBC, BMP 09/19/19 05:20 09/19/19 05:20 INR, PTT INR 1.09 (0.83-1.09) 09/19/19 05:20 Assessment/Plan 78 year old woman with a pmh HTN, HLD, DMII, hypothyroid, smoker, asthma, fibromyalgia, and arthritis. She was admitted with 2 month history of abdominal swelling, LE swelling and 40lb weight gain. found to be in complete heart block in ER with narrow complex escape rhythm. She was avoiding taking levothyroxine because she was told to only take it on an empty stomach and needed to eat in the AM because of hypoglycemia. TSH was 32.8. Intermittent 3rd degree heart block, with HR down to 48 BPM Isorhythmic dissociation also noted BP 119/58 mmHg. Complete Heart Block: Recurrent complete heart block with a junctional escape rhythm at 49 BPM Continue Telem monitoring Continue to avoid AV sadiq slowing meds including nondihydropyridine Ca++ channel blockers and beta blockers Continue thyroid hormone replacement therapy Lyme screen negative Echocardiogram noted - normal LV function with pulmonary HTN I think the patient would benefit from an EP study to further evaluate her conduction system pathology. Will consider a transfer to [facility] for an EP study once diuressed CHF Continue Lasix 40 mg IV daily Follow I's/O's/Wt's/Lytes Continue losartan 50 mg PO daily HTN Conitnue amlodipine 5 mg PO daily
[2019-09-19] MEDS ORDERED: PT OWN MED DRAWER 7, Y5N ONE (17:28)
[2019-09-19] MEDS: oxyCODONE HCL 5 MG TABLET PO PRN (20:00)
[2019-09-19] MEDS: SENNOSIDES 8.6MG TABLET (FP) PO SCH (21:39)
[2019-09-19] MEDS: HEPARIN NA (PORCINE) 5,000 UNITS/ML 1ML VIAL SQ SCH (21:49)
[2019-09-20] MEDS: oxyCODONE HCL 5 MG TABLET PO PRN ×4 (03:09→23:35)
[2019-09-20] MEDS: FUROSEMIDE 40 MG/4 ML INJECTABLE VIAL IVPUSH SCH ×2 (06:09→13:36)
[2019-09-20] MEDS: LEVOTHYROXINE NA 100 MCG TABLET (FP) PO SCH (06:09)
[2019-09-20] MEDS: HEPARIN NA (PORCINE) 5,000 UNITS/ML 1ML VIAL SQ SCH ×3 (06:09→21:37)
[2019-09-20] MEDS: INSULIN SLIDING SCALE (NOVOLOG) 1 VIAL SQ SCH ×4 (06:16→21:37)
[2019-09-20 07:08] LABS: BASO % 1.1 % (0-2.0); EOS % 4.4 % (0-4.5); HEMOGLOBIN 11.7 GM/dL (10.7-15.3); LYMPH % 20.1 % (8-40); MCH 32.6 pg (25.7-33.7); MCHC 33.5 g/dl (32.0-36.0); MEAN CELL VOLUME 97.3 fl (80-96); MEAN PLT VOLUME 8.6 fl (7.5-11.1); MONO % 8.1 % (3.8-10.2); NEUT % 66.3 % (42.8-82.8); PLATELET COUNT 249 K/MM3 (134-434); RBC 3.59 M/mm3 (3.60-5.2); RDW 13.7 % (11.6-15.6); WHITE BLOOD COUNT 6.4 K/mm3 (4.0-10.0)
[2019-09-20] MEDS: ALBUTEROL SO4 2.5/IPRATROPIUM 0.5 INH SOL 3 ML VIAL.NEB. NEB SCH ×4 (07:30→20:21)
[2019-09-20 07:38] LABS: ALBUMIN 2.9 g/dl (3.4-5.0); BILIRUBIN,TOTAL 0.5 mg/dL (0.2-1); CALCIUM 8.7 mg/dL (8.5-10.1); MAGNESIUM 2.1 mg/dL (1.8-2.4); POTASSIUM 3.8 mmol/L (3.5-5.1); TOT PROT 6.7 g/dl (6.4-8.2)
--- NOTE | 2019-09-20 07:53 | PN ---
Progress Note, Physician History of Present Illness: Patient is a 78 year old female with a significant past medical history of current every day smoker, DM II (on metformin), hypothyroidism , hypertension, HLD, fibromyalgia, asthma, osteoarthritis presents to ED with c/o body aches, rapid weight gain and SOB. Patient reports significant weight loss 2-3 months ago, followed by rapid water retention associated with mild shortness of breath over the last 60 days. Her volume overload and dyspnea worsened and included chest discomfort and she presented to the ED for further evaluation. - Current Medication List Current Medications: Active Medications Acetaminophen (Tylenol -) 650 mg PO Q6H PRN PRN Reason: PAIN LEVEL 4 - 6 Last Admin: 09/19/19 13:44 Dose: 650 mg Albuterol/Ipratropium (Duoneb -) 1 amp NEB RQID [facility] Last Admin: 09/19/19 20:30 Dose: 1 amp Amlodipine Besylate (Norvasc -) 5 mg PO DAILY [facility] Last Admin: 09/19/19 09:15 Dose: 5 mg Docusate Sodium (Colace -) 100 mg PO BID [facility] Last Admin: 09/19/19 21:39 Dose: 100 mg Famotidine (Pepcid -) 20 mg PO DAILY [facility] Last Admin: 09/19/19 09:15 Dose: 20 mg Furosemide (Lasix Injection -) 40 mg IVPUSH 0600,1400,2000 [facility] Last Admin: 09/20/19 06:09 Dose: 40 mg Heparin Sodium (Porcine) (Heparin -) 5,000 unit SQ TID [facility] Last Admin: 09/20/19 06:09 Dose: 5,000 unit Hydrochlorothiazide (Hctz -) 25 mg PO DAILY [facility] Last Admin: 09/19/19 09:15 Dose: 25 mg Insulin Aspart (Novolog Vial Sliding Scale -) 1 vial SQ ACHS [facility]; Protocol Last Admin: 09/20/19 06:16 Dose: Not Given Levothyroxine Sodium (Synthroid -) 200 mcg PO 0700 [facility] Last Admin: 09/20/19 06:09 Dose: 200 mcg Losartan Potassium (Cozaar -) 50 mg PO DAILY [facility] Last Admin: 09/19/19 09:15 Dose: 50 mg Metoclopramide HCl (Reglan -) 10 mg PO TID PRN PRN Reason: NAUSEA AND/OR VOMITING Nicotine (Nicoderm Patch -) 21 mg TD DAILY [facility] Last Admin: 09/19/19 09:15 Dose: 21 mg Oxycodone HCl (Roxicodone -) 10 mg PO Q6H PRN PRN Reason: PAIN LEVEL 7 - 10 Last Admin: 09/20/19 03:09 Dose: 10 mg Polyethylene Glycol (Miralax (For Daily Use) -) 17 gm PO BID [facility] Last Admin: 09/19/19 21:39 Dose: 17 gm Senna (Senna -) 2 tab PO HS [facility] Last Admin: 09/19/19 21:39 Dose: 2 tab Sodium Chloride ([place] Nasal [place] -) 2 spray NS TID PRN PRN Reason: NASAL CONGESTION - Objective Vital Signs: Vital Signs Temperature 98.0 F 09/20/19 07:00 Pulse Rate 63 09/20/19 07:00 Respiratory Rate 18 09/20/19 07:00 Blood Pressure 152/79 09/20/19 07:00 O2 Sat by Pulse Oximetry (%) 97 09/19/19 21:00 Additional Findings/Remarks: Constitutional: Yes: Well Nourished, No Distress, Calm Eyes: Yes: WNL, Conjunctiva Clear HENT: Yes: WNL, Atraumatic, Normocephalic Neck: Yes: WNL, Supple, Trachea Midline Cardiovascular: Yes: WNL, Regular Rate and Rhythm Respiratory: Yes: WNL, Regular, CTA Bilaterally, Diminished (at bases) Gastrointestinal: Yes: Soft, Abdomen, Obese, Distention (improved) ...Rectal Exam: Yes: Deferred Genitourinary: Yes: WNL Breast(s): Yes: WNL Musculoskeletal: Yes: WNL Extremities: Yes: WNL Edema: No Peripheral Pulses WNL: Yes Peripheral Pulses: Left Radial: 2+, Right Radial: 2+, Left Doralis Pedis: 2+, Right Dorsalis Pedis: 2+, Left Femoral: 2+, Right Femoral: 2+ Integumentary: Yes: WNL Neurological: Yes: WNL, Alert, Oriented ...Motor Strength: WNL Psychiatric: Yes: WNL Labs: CBC, BMP 09/20/19 05:40 09/20/19 05:40 INR, PTT INR 1.09 (0.83-1.09) 09/19/19 05:20 - ....Imaging Ultrasound: Pending (ABD) Problem List - Problems (1) Fibromyalgia Assessment/Plan: supportive care c/w PT Code(s): M79.7 - FIBROMYALGIA (2) Osteoarthritis Assessment/Plan: pt taking hydrocodone at home changed to roxicodone withpout tyllenol given elevated LFTs Code(s): M19.90 - UNSPECIFIED OSTEOARTHRITIS, UNSPECIFIED SITE (3) DMII (diabetes mellitus, type 2) Assessment/Plan: BGM AC/HS with novolog sliding scale diabetic diet blood glucose well controlled during stay Code(s): E11.9 - TYPE 2 DIABETES MELLITUS WITHOUT COMPLICATIONS (4) HTN (hypertension) Assessment/Plan: BPbetter controlled with addition of amlodopine 5mg c/w hctx, cozaar avoid betablockers continue to monitor Code(s): I10 - ESSENTIAL (PRIMARY) HYPERTENSION (5) Heart block, AV Assessment/Plan: sinus rhythm with now intermittent complete heart block and junctional escape rhythm cont tele monitoring Continue to avoid AV sadiq slowing agents c/w synthroid lyme titers negative TTE showed normal LVEF normal RV function, mod to sev TR, severe PAH, mild MR appreciate cardiology consultation No indication at this time for PPM however cardiology feels patient would benefit from EP study once adequately diuresed. Wt down 18 kg since admission Will consider a transfer to [facility] for an EP study Code(s): I44.30 - UNSPECIFIED ATRIOVENTRICULAR BLOCK (6) Hypothyroidism Assessment/Plan: TSH 31.7 c/w synthroid appreciate endocrinology consultation Code(s): E03.9 - HYPOTHYROIDISM, UNSPECIFIED (7) Prophylactic measure Assessment/Plan: FEN no additional IVF needed diabetic low sodium diet monitor electrolytes DVT heparin sq Dipso maintain on tele full code discharge planning/possible transfer to [facility] for further testing Code(s): Z29.9 - ENCOUNTER FOR PROPHYLACTIC MEASURES, UNSPECIFIED (8) Tobacco dependence Assessment/Plan: c/w nicotine patch counseled on smoking cessation Code(s): F17.200 - NICOTINE DEPENDENCE, UNSPECIFIED, UNCOMPLICATED (9) Asthma Assessment/Plan: c/w duonebs Code(s): J45.909 - UNSPECIFIED ASTHMA, UNCOMPLICATED (10) Ascites Assessment/Plan: diagnostic paracentesis done and no ascites seen. complete US done for assess vessel patency Code(s): R18.8 - OTHER ASCITES Visit type - Emergency Visit Emergency Visit: Yes ED Registration Date: 09/15/19 Care time: The patient presented to the Emergency Department on the above date and was hospitalized for further evaluation of their emergent condition. - New Patient This patient is new to me today: No - Critical Care Critical Care patient: No - Discharge Referral Referred to [facility] Med [facility].C.: No
[2019-09-20] MEDS: POLYETHYLENE GLYCOL 3350 119 GM BTL PO SCH ×2 (10:41→21:37)
[2019-09-20] MEDS: DOCUSATE SODIUM 100 MG CAPSULE (FP) PO SCH ×2 (10:41→21:37)
[2019-09-20] MEDS: LOSARTAN POTASSIUM 50 MG TABLET (FP) PO SCH (10:41)
[2019-09-20] MEDS: amLODIPine BESYLATE 5 MG TABLET (FP) PO SCH (10:41)
[2019-09-20] MEDS: NICOTINE 21 MG/24 HOURS TOPICAL PATCH TD SCH (10:41)
[2019-09-20] MEDS: FAMOTIDINE 20 MG TABLET PO SCH (10:41)
[2019-09-20] MEDS: HYDROCHLOROTHIAZIDE 25 MG TABLET (FP) PO SCH (10:41)
--- NOTE | 2019-09-20 12:12 | PN ---
Progress Note (short form) - Note Progress Note: PULMONARY States breathing is improving. No cough or wheezing. Leg swelling improving. Vital Signs Period Temp Pulse Resp BP Sys/[place] Pulse Ox Last 24 Hr 97.9 F-99.6 F 50-65 17-18 119-190/58-80 96-97 Intake & Output 09/17/19 09/18/19 09/19/19 09/20/19 23:59 23:59 23:59 23:59 Intake Total 520 1370 1060 240 Output Total 4980 Balance -4460 1370 1060 240 Weight 75.75 kg 61.507 kg 56.518 kg 55.338 kg Gen: NAD at rest Heart: RRR Lung: decreased breath sounds at the bases Abd: soft, nontender Ext: + edema CBC, BMP 09/20/19 05:40 09/20/19 05:40 Active Medications Acetaminophen (Tylenol -) 650 mg PO Q6H PRN PRN Reason: PAIN LEVEL 4 - 6 Last Admin: 09/19/19 13:44 Dose: 650 mg Albuterol/Ipratropium (Duoneb -) 1 amp NEB RQID [facility] Last Admin: 09/20/19 11:30 Dose: 1 amp Amlodipine Besylate (Norvasc -) 5 mg PO DAILY [facility] Last Admin: 09/20/19 10:41 Dose: 5 mg Docusate Sodium (Colace -) 100 mg PO BID [facility] Last Admin: 09/20/19 10:41 Dose: 100 mg Famotidine (Pepcid -) 20 mg PO DAILY [facility] Last Admin: 09/20/19 10:41 Dose: 20 mg Furosemide (Lasix Injection -) 40 mg IVPUSH 0600,1400,2000 [facility] Last Admin: 09/20/19 06:09 Dose: 40 mg Heparin Sodium (Porcine) (Heparin -) 5,000 unit SQ TID [facility] Last Admin: 09/20/19 06:09 Dose: 5,000 unit Hydrochlorothiazide (Hctz -) 25 mg PO DAILY [facility] Last Admin: 09/20/19 10:41 Dose: 25 mg Insulin Aspart (Novolog Vial Sliding Scale -) 1 vial SQ ACHS [facility]; Protocol Last Admin: 09/20/19 12:07 Dose: 4 units Levothyroxine Sodium (Synthroid -) 200 mcg PO 0700 [facility] Last Admin: 09/20/19 06:09 Dose: 200 mcg Losartan Potassium (Cozaar -) 50 mg PO DAILY [facility] Last Admin: 09/20/19 10:41 Dose: 50 mg Metoclopramide HCl (Reglan -) 10 mg PO TID PRN PRN Reason: NAUSEA AND/OR VOMITING Nicotine (Nicoderm Patch -) 21 mg TD DAILY [facility] Last Admin: 09/20/19 10:41 Dose: 21 mg Oxycodone HCl (Roxicodone -) 10 mg PO Q6H PRN PRN Reason: PAIN LEVEL 7 - 10 Last Admin: 09/20/19 10:49 Dose: 10 mg Polyethylene Glycol (Miralax (For Daily Use) -) 17 gm PO BID [facility] Last Admin: 09/20/19 10:41 Dose: 17 gm Senna (Senna -) 2 tab PO HS [facility] Last Admin: 09/19/19 21:39 Dose: 2 tab Sodium Chloride ([place] Nasal [place] -) 2 spray NS TID PRN PRN Reason: NASAL CONGESTION A/P Complete Heart Block Hypothyroidism Acute on Chronic Diastolic Heart Failure Pulmonary HTN Asthma HTN DM - continue lasix - monitor urine output, creatinine - daily weights - O2 to keep SpO2 >90% - continue synthroid - cardiology work up in progress - DVT prophylaxis
--- NOTE | 2019-09-20 12:53 | PN ---
Progress Note, Physician - Current Medication List Current Medications: Active Medications Acetaminophen (Tylenol -) 650 mg PO Q6H PRN PRN Reason: PAIN LEVEL 4 - 6 Last Admin: 09/19/19 13:44 Dose: 650 mg Albuterol/Ipratropium (Duoneb -) 1 amp NEB RQID [facility] Last Admin: 09/20/19 11:30 Dose: 1 amp Amlodipine Besylate (Norvasc -) 5 mg PO DAILY [facility] Last Admin: 09/20/19 10:41 Dose: 5 mg Docusate Sodium (Colace -) 100 mg PO BID [facility] Last Admin: 09/20/19 10:41 Dose: 100 mg Famotidine (Pepcid -) 20 mg PO DAILY [facility] Last Admin: 09/20/19 10:41 Dose: 20 mg Furosemide (Lasix Injection -) 40 mg IVPUSH 0600,1400,2000 [facility] Last Admin: 09/20/19 06:09 Dose: 40 mg Heparin Sodium (Porcine) (Heparin -) 5,000 unit SQ TID [facility] Last Admin: 09/20/19 06:09 Dose: 5,000 unit Hydrochlorothiazide (Hctz -) 25 mg PO DAILY [facility] Last Admin: 09/20/19 10:41 Dose: 25 mg Insulin Aspart (Novolog Vial Sliding Scale -) 1 vial SQ [facility]; Protocol Last Admin: 09/20/19 12:07 Dose: 4 units Levothyroxine Sodium (Synthroid -) 200 mcg PO 0700 [facility] Last Admin: 09/20/19 06:09 Dose: 200 mcg Losartan Potassium (Cozaar -) 50 mg PO DAILY [facility] Last Admin: 09/20/19 10:41 Dose: 50 mg Metoclopramide HCl (Reglan -) 10 mg PO TID PRN PRN Reason: NAUSEA AND/OR VOMITING Nicotine (Nicoderm Patch -) 21 mg TD DAILY [facility] Last Admin: 09/20/19 10:41 Dose: 21 mg Oxycodone HCl (Roxicodone -) 10 mg PO Q6H PRN PRN Reason: PAIN LEVEL 7 - 10 Last Admin: 09/20/19 10:49 Dose: 10 mg Polyethylene Glycol (Miralax (For Daily Use) -) 17 gm PO BID [facility] Last Admin: 09/20/19 10:41 Dose: 17 gm Senna (Senna -) 2 tab PO HS [facility] Last Admin: 09/19/19 21:39 Dose: 2 tab Sodium Chloride ([place] Nasal [place] -) 2 spray NS TID PRN PRN Reason: NASAL CONGESTION - Objective Vital Signs: Vital Signs Temperature 98.2 F 09/20/19 10:00 Pulse Rate 62 09/20/19 10:00 Respiratory Rate 18 09/20/19 10:00 Blood Pressure 163/63 09/20/19 10:00 O2 Sat by Pulse Oximetry (%) 96 09/20/19 09:00 Labs: CBC, BMP 09/20/19 05:40 09/20/19 05:40 INR, PTT INR 1.09 (0.83-1.09) 09/19/19 05:20
--- NOTE | 2019-09-20 15:42 | PN ---
Progress Note, Physician Chief Complaint: No new complaints History of Present Illness: This is a 78 year old woman with a pmh HTN, HLD, DMII, hypothyroid, smoker, asthma, fibromyalgia, and arthritis. She was admitted with 2 month history of abdominal swelling, LE swelling and 40lb weight gain. found to be in complete heart block in ER with narrow complex escape rhythm. She was avoiding taking levothyroxine because she was told to only take it on an empty stomach and needed to eat in the AM because of hypoglycemia. TSH was 32.8. Intermittent 3rd degree heart block, with HR down to 48 BPM Isorhythmic dissociation also noted 09/20/19 HR no 71 BPM - Current Medication List Current Medications: Active Medications Acetaminophen (Tylenol -) 650 mg PO Q6H PRN PRN Reason: PAIN LEVEL 4 - 6 Last Admin: 09/19/19 13:44 Dose: 650 mg Albuterol/Ipratropium (Duoneb -) 1 amp NEB RQID [facility] Last Admin: 09/20/19 11:30 Dose: 1 amp Amlodipine Besylate (Norvasc -) 5 mg PO DAILY [facility] Last Admin: 09/20/19 10:41 Dose: 5 mg Docusate Sodium (Colace -) 100 mg PO BID [facility] Last Admin: 09/20/19 10:41 Dose: 100 mg Famotidine (Pepcid -) 20 mg PO DAILY [facility] Last Admin: 09/20/19 10:41 Dose: 20 mg Furosemide (Lasix Injection -) 40 mg IVPUSH 0600,1400,2000 [facility] Last Admin: 09/20/19 13:36 Dose: 40 mg Heparin Sodium (Porcine) (Heparin -) 5,000 unit SQ TID [facility] Last Admin: 09/20/19 13:36 Dose: 5,000 unit Hydrochlorothiazide (Hctz -) 25 mg PO DAILY [facility] Last Admin: 09/20/19 10:41 Dose: 25 mg Insulin Aspart (Novolog Vial Sliding Scale -) 1 vial SQ ACHS [facility]; Protocol Last Admin: 09/20/19 12:07 Dose: 4 units Levothyroxine Sodium (Synthroid -) 200 mcg PO 0700 [facility] Last Admin: 09/20/19 06:09 Dose: 200 mcg Losartan Potassium (Cozaar -) 50 mg PO DAILY [facility] Last Admin: 09/20/19 10:41 Dose: 50 mg Metoclopramide HCl (Reglan -) 10 mg PO TID PRN PRN Reason: NAUSEA AND/OR VOMITING Nicotine (Nicoderm Patch -) 21 mg TD DAILY [facility] Last Admin: 09/20/19 10:41 Dose: 21 mg Oxycodone HCl (Roxicodone -) 10 mg PO Q6H PRN PRN Reason: PAIN LEVEL 7 - 10 Last Admin: 09/20/19 10:49 Dose: 10 mg Polyethylene Glycol (Miralax (For Daily Use) -) 17 gm PO BID [facility] Last Admin: 09/20/19 10:41 Dose: 17 gm Senna (Senna -) 2 tab PO HS [facility] Last Admin: 09/19/19 21:39 Dose: 2 tab Sodium Chloride ([place] Nasal [place] -) 2 spray NS TID PRN PRN Reason: NASAL CONGESTION - Objective Vital Signs: Vital Signs Temperature 98.3 F 09/20/19 14:26 Pulse Rate 63 09/20/19 14:26 Respiratory Rate 18 09/20/19 14:26 Blood Pressure 145/68 09/20/19 14:26 O2 Sat by Pulse Oximetry (%) 96 09/20/19 09:00 Constitutional: Yes: Well Nourished Eyes: Yes: WNL HENT: Yes: WNL Neck: Yes: WNL Cardiovascular: Yes: Regular Rate and Rhythm Respiratory: Yes: CTA Bilaterally Gastrointestinal: Yes: Soft Extremities: Yes: WNL Edema: No Neurological: Yes: Alert, Oriented Labs: CBC, BMP 09/20/19 05:40 09/20/19 05:40 INR, PTT INR 1.09 (0.83-1.09) 09/19/19 05:20 Assessment/Plan 78 year old woman with a pmh HTN, HLD, DMII, hypothyroid, smoker, asthma, fibromyalgia, and arthritis. She was admitted with 2 month history of abdominal swelling, LE swelling and 40lb weight gain. found to be in complete heart block in ER with narrow complex escape rhythm. She was avoiding taking levothyroxine because she was told to only take it on an empty stomach and needed to eat in the AM because of hypoglycemia. TSH was 32.8. Intermittent 3rd degree heart block, with HR down to 48 BPM Isorhythmic dissociation also noted BP 119/58 mmHg. Complete Heart Block: Recurrent complete heart block with a junctional escape rhythm at 49 BPM Continue Telem monitoring Continue to avoid AV sadiq slowing meds including nondihydropyridine Ca++ channel blockers and beta blockers Continue thyroid hormone replacement therapy Lyme screen negative Echocardiogram noted - normal LV function with pulmonary HTN I think the patient would benefit from an EP study to further evaluate her conduction system pathology. Will consider a transfer to [facility] for an EP study once diuressed Will speak with the patient's daughter Nolvia [phone] regarding transfer to [facility]. CHF Can change to PO Lasix 20 mg PO daily HTN Conitnue amlodipine 5 mg PO daily
[2019-09-20] MEDS: SENNOSIDES 8.6MG TABLET (FP) PO SCH (21:37)
[2019-09-21] MEDS: oxyCODONE HCL 5 MG TABLET PO PRN ×2 (05:56→12:37)
[2019-09-21] MEDS: HEPARIN NA (PORCINE) 5,000 UNITS/ML 1ML VIAL SQ SCH ×2 (05:57→14:06)
[2019-09-21] MEDS: LEVOTHYROXINE NA 100 MCG TABLET (FP) PO SCH (06:02)
[2019-09-21] MEDS: INSULIN SLIDING SCALE (NOVOLOG) 1 VIAL SQ SCH ×3 (06:04→17:16)
[2019-09-21 06:57] LABS: BASO % 1.1 % (0-2.0); EOS % 5.5 % (0-4.5); HEMATOCRIT 35.5 % (32.4-45.2); HEMOGLOBIN 11.9 GM/dL (10.7-15.3); LYMPH % 30.2 % (8-40); MCH 32.8 pg (25.7-33.7); MCHC 33.4 g/dl (32.0-36.0); MEAN CELL VOLUME 98.1 fl (80-96); MEAN PLT VOLUME 8.4 fl (7.5-11.1); MONO % 8.2 % (3.8-10.2); PLATELET COUNT 248 K/MM3 (134-434); RBC 3.62 M/mm3 (3.60-5.2); RDW 13.5 % (11.6-15.6); WHITE BLOOD COUNT 6.7 K/mm3 (4.0-10.0)
[2019-09-21 07:42] LABS: BLOOD UREA NITROGEN 25.2 mg/dL (7-18); CALCIUM 8.6 mg/dL (8.5-10.1); MAGNESIUM 2.3 mg/dL (1.8-2.4); POTASSIUM 3.9 mmol/L (3.5-5.1); TOT PROT 6.7 g/dl (6.4-8.2)
--- NOTE | 2019-09-21 07:52 | PN ---
Progress Note, Physician History of Present Illness: Patient is a 78 year old female with a significant past medical history of current every day smoker, DM II (on metformin), hypothyroidism , hypertension, HLD, fibromyalgia, asthma, osteoarthritis presents to ED with c/o body aches, rapid weight gain and SOB. Patient reports significant weight loss 2-3 months ago, followed by rapid water retention associated with mild shortness of breath over the last 60 days. Her volume overload and dyspnea worsened and included chest discomfort and she presented to the ED for further evaluation. - Current Medication List Current Medications: Active Medications Acetaminophen (Tylenol -) 650 mg PO Q6H PRN PRN Reason: PAIN LEVEL 4 - 6 Last Admin: 09/19/19 13:44 Dose: 650 mg Albuterol/Ipratropium (Duoneb -) 1 amp NEB RQID [facility] Last Admin: 09/20/19 20:21 Dose: 1 amp Amlodipine Besylate (Norvasc -) 5 mg PO DAILY [facility] Last Admin: 09/20/19 10:41 Dose: 5 mg Docusate Sodium (Colace -) 100 mg PO BID [facility] Last Admin: 09/20/19 21:37 Dose: 100 mg Famotidine (Pepcid -) 20 mg PO DAILY [facility] Last Admin: 09/20/19 10:41 Dose: 20 mg Furosemide (Lasix -) 20 mg PO DAILY [facility] Heparin Sodium (Porcine) (Heparin -) 5,000 unit SQ TID [facility] Last Admin: 09/21/19 05:57 Dose: 5,000 unit Hydrochlorothiazide (Hctz -) 25 mg PO DAILY [facility] Last Admin: 09/20/19 10:41 Dose: 25 mg Insulin Aspart (Novolog Vial Sliding Scale -) 1 vial SQ ACHS [facility]; Protocol Last Admin: 09/21/19 06:04 Dose: Not Given Levothyroxine Sodium (Synthroid -) 200 mcg PO 0700 [facility] Last Admin: 09/21/19 06:02 Dose: 200 mcg Losartan Potassium (Cozaar -) 50 mg PO DAILY [facility] Last Admin: 09/20/19 10:41 Dose: 50 mg Metoclopramide HCl (Reglan -) 10 mg PO TID PRN PRN Reason: NAUSEA AND/OR VOMITING Nicotine (Nicoderm Patch -) 21 mg TD DAILY [facility] Last Admin: 09/20/19 10:41 Dose: 21 mg Oxycodone HCl (Roxicodone -) 10 mg PO Q6H PRN PRN Reason: PAIN LEVEL 7 - 10 Last Admin: 09/21/19 05:56 Dose: 10 mg Polyethylene Glycol (Miralax (For Daily Use) -) 17 gm PO BID [facility] Last Admin: 09/20/19 21:37 Dose: 17 gm Senna (Senna -) 2 tab PO HS [facility] Last Admin: 09/20/19 21:37 Dose: 2 tab Sodium Chloride ([place] Nasal [place] -) 2 spray NS TID PRN PRN Reason: NASAL CONGESTION - Objective Vital Signs: Vital Signs Temperature 97.7 F 09/21/19 06:00 Pulse Rate 64 09/21/19 06:00 Respiratory Rate 18 09/21/19 06:00 Blood Pressure 163/82 09/21/19 06:00 O2 Sat by Pulse Oximetry (%) 96 09/20/19 21:00 Labs: CBC, BMP 09/21/19 06:20 09/21/19 06:20 INR, PTT INR 1.09 (0.83-1.09) 09/19/19 05:20 Problem List - Problems (1) Fibromyalgia Code(s): M79.7 - FIBROMYALGIA (2) Osteoarthritis Code(s): M19.90 - UNSPECIFIED OSTEOARTHRITIS, UNSPECIFIED SITE (3) DMII (diabetes mellitus, type 2) Code(s): E11.9 - TYPE 2 DIABETES MELLITUS WITHOUT COMPLICATIONS (4) HTN (hypertension) Code(s): I10 - ESSENTIAL (PRIMARY) HYPERTENSION (5) Heart block, AV Code(s): I44.30 - UNSPECIFIED ATRIOVENTRICULAR BLOCK (6) Hypothyroidism Code(s): E03.9 - HYPOTHYROIDISM, UNSPECIFIED (7) Prophylactic measure Code(s): Z29.9 - ENCOUNTER FOR PROPHYLACTIC MEASURES, UNSPECIFIED (8) Tobacco dependence Code(s): F17.200 - NICOTINE DEPENDENCE, UNSPECIFIED, UNCOMPLICATED (9) Asthma Code(s): J45.909 - UNSPECIFIED ASTHMA, UNCOMPLICATED (10) Ascites Code(s): R18.8 - OTHER ASCITES
[2019-09-21] MEDS: ALBUTEROL SO4 2.5/IPRATROPIUM 0.5 INH SOL 3 ML VIAL.NEB. NEB SCH ×3 (08:24→16:10)
[2019-09-21] MEDS ORDERED: FUROSEMIDE 20 MG TABLET (FP) PO SCH (10:00)
[2019-09-21] MEDS: FAMOTIDINE 20 MG TABLET PO SCH (10:24)
[2019-09-21] MEDS: amLODIPine BESYLATE 5 MG TABLET (FP) PO SCH (10:24)
[2019-09-21] MEDS: DOCUSATE SODIUM 100 MG CAPSULE (FP) PO SCH (10:24)
[2019-09-21] MEDS: HYDROCHLOROTHIAZIDE 25 MG TABLET (FP) PO SCH (10:24)
[2019-09-21] MEDS: LOSARTAN POTASSIUM 50 MG TABLET (FP) PO SCH (10:24)
[2019-09-21] MEDS: NICOTINE 21 MG/24 HOURS TOPICAL PATCH TD SCH (10:25)
[2019-09-21] MEDS: POLYETHYLENE GLYCOL 3350 119 GM BTL PO SCH (10:25)
[2019-09-21] MEDS: ACETAMINOPHEN 325 MG TABLET (FP) PO PRN (10:28)
[2019-09-21 10:55] VITALS: BMI 23.6
--- NOTE | 2019-09-21 12:11 | DS ---
Physical Exam: SUBJECTIVE: Patient seen and examined Patient is a 78 year old female with a significant past medical history of current every day smoker, DM II (on metformin), hypothyroidism , hypertension, HLD, fibromyalgia, asthma, osteoarthritis presents to ED with c/o body aches, rapid weight gain and SOB. Patient reports significant weight loss 2-3 months ago, followed by rapid water retention associated with mild shortness of breath over the last 60 days. Her volume overload and dyspnea worsened and included chest discomfort and she presented to the ED for further evaluation. OBJECTIVE: Vital Signs Period Temp Pulse Resp BP Sys/[place] Pulse Ox Last 24 Hr 97.7 F-99.2 F 61-68 18-18 145-169/57-82 96 PHYSICAL EXAM Constitutional: Yes: Well Nourished, No Distress, Calm Eyes: Yes: WNL, Conjunctiva Clear HENT: Yes: WNL, Atraumatic, Normocephalic Neck: Yes: WNL, Supple, Trachea Midline Cardiovascular: Yes: WNL, Regular Rate and Rhythm Respiratory: Yes: WNL, Regular, CTA Bilaterally, Diminished (at bases) Gastrointestinal: Yes: Soft, Abdomen, Obese, Distention (improved) ...Rectal Exam: Yes: Deferred Genitourinary: Yes: WNL Breast(s): Yes: WNL Musculoskeletal: Yes: WNL Extremities: Yes: WNL Edema: No Peripheral Pulses WNL: Yes Peripheral Pulses: Left Radial: 2+, Right Radial: 2+, Left Doralis Pedis: 2+, Right Dorsalis Pedis: 2+, Left Femoral: 2+, Right Femoral: 2+ Integumentary: Yes: WNL Neurological: Yes: WNL, Alert, Oriented ...Motor Strength: WNL Psychiatric: Yes: WNL LABS Laboratory Results - last 24 hr 09/19/19 09/19/19 09/20/19 05:20 05:20 12:06 WBC RBC Hgb Hct MCV MCH MCHC RDW Plt Count MPV Absolute Neuts (auto) Neutrophils % Lymphocytes % Monocytes % Eosinophils % Basophils % Nucleated RBC % Sodium Potassium Chloride Carbon Dioxide Anion Gap BUN Creatinine Est GFR (CKD-EPI)AfAm Est GFR (CKD-EPI)NonAf POC Glucometer 292 Random Glucose Calcium Magnesium Total Bilirubin AST ALT Alkaline Phosphatase Total Protein Albumin MING Screen Negative [facility] &ELECTROENCEPHALOGRAPHIC TECHNICIAN Intrp 9 1109/20/19 09/21/19 17:07 21:35 06:01 WBC RBC Hgb Hct MCV MCH MCHC RDW Plt Count MPV Absolute Neuts (auto) Neutrophils % Lymphocytes % Monocytes % Eosinophils % Basophils % Nucleated RBC % Sodium Potassium Chloride Carbon Dioxide Anion Gap BUN Creatinine Est GFR (CKD-EPI)AfAm Est GFR (CKD-EPI)NonAf POC Glucometer 181 234 130 Random Glucose Calcium Magnesium Total Bilirubin AST ALT Alkaline Phosphatase Total Protein Albumin MING Screen [facility] [place] &ELECTROENCEPHALOGRAPHIC TECHNICIAN Intrp 09/21/19 09/21/19 09/21/19 06:20 06:20 11:11 WBC 6.7 RBC 3.62 Hgb 11.9 Hct 35.5 MCV 98.1 H MCH 32.8 MCHC 33.4 RDW 13.5 Plt Count 248 MPV 8.4 Absolute Neuts (auto) 3.7 Neutrophils % 55.0 Lymphocytes % 30.2 D Monocytes % 8.2 Eosinophils % 5.5 H Basophils % 1.1 Nucleated RBC % 0 Sodium 132 L Potassium 3.9 Chloride 94 L Carbon Dioxide 34 H Anion Gap 5 L BUN 25.2 H Creatinine 1.0 Est GFR (CKD-EPI)AfAm 62.93 Est GFR (CKD-EPI)NonAf 54.30 POC Glucometer 234 Random Glucose 127 H Calcium 8.6 Magnesium 2.3 Total Bilirubin 1.0 AST 33 ALT 27 Alkaline Phosphatase 235 H Total Protein 6.7 Albumin 3.0 L MING Screen [facility] HOSPITAL COURSE: Date of Admission:09/15/19 Date of Discharge: 09/21/19 Problem List - Problems (1) Fibromyalgia Assessment/Plan: supportive care c/w PT c/w pain regimine Code(s): M79.7 - FIBROMYALGIA (2) Osteoarthritis Assessment/Plan: pt taking hydrocodone at home changed to roxicodone withpout tylenol given elevated LFTs c/w pain management doctor at home Code(s): M19.90 - UNSPECIFIED OSTEOARTHRITIS, UNSPECIFIED SITE (3) DMII (diabetes mellitus, type 2) Assessment/Plan: BGM AC/HS with novolog sliding scale diabetic diet blood glucose well controlled during stay Can transition back to glucophage Code(s): E11.9 - TYPE 2 DIABETES MELLITUS WITHOUT COMPLICATIONS (4) HTN (hypertension) Assessment/Plan: BP better controlled with addition of amlodopine 5mg c/w hctz, cozaar avoid betablockers or any AV sadiq agents Code(s): I10 - ESSENTIAL (PRIMARY) HYPERTENSION (5) Heart block, AV Assessment/Plan: sinus rhythm with now intermittent complete heart block and junctional escape rhythm Continue to avoid AV sadiq slowing agents c/w synthroid lyme titers negative TTE showed normal LVEF normal RV function, mod to sev TR, severe PAH, mild MR being transfered to Dr Mejia for EP study Pt adequately diuresed. Wt down 18 kg since admission Code(s): I44.30 - UNSPECIFIED ATRIOVENTRICULAR BLOCK (6) Hypothyroidism Assessment/Plan: TSH 31.7 c/w synthroid follow TSH in 2 weeks Code(s): E03.9 - HYPOTHYROIDISM, UNSPECIFIED (7) Prophylactic measure Assessment/Plan: FEN no additional IVF needed diabetic low sodium diet monitor electrolytes DVT heparin sq during hospital stay Dipso Full code status transfer to [facility] for further testing Code(s): Z29.9 - ENCOUNTER FOR PROPHYLACTIC MEASURES, UNSPECIFIED (8) Tobacco dependence Assessment/Plan: c/w nicotine patch counseled on smoking cessation Code(s): F17.200 - NICOTINE DEPENDENCE, UNSPECIFIED, UNCOMPLICATED (9) Asthma Assessment/Plan: c/w duonebs Code(s): J45.909 - UNSPECIFIED ASTHMA, UNCOMPLICATED (10) Ascites Assessment/Plan: diagnostic paracentesis done and no ascites seen. complete US done for assess vessel patency. Cirrhosis seen on US Code(s): R18.8 - OTHER ASCITES Stable for transfer to [facility] under Dr Mejia Minutes to complete discharge: 65 Discharge Summary Problems reviewed: Yes Reason For Visit: COMPLETE ATRIOVENTRICLAR BLOCK,HEART BLOCK Current Active Problems Ascites (Acute) Asthma (Acute) Atelectasis of right lung (Acute) CHF (congestive heart failure) (Acute) Chronic pain (Acute) DMII (diabetes mellitus, type 2) (Acute) Fibromyalgia (Acute) HTN (hypertension) (Acute) Heart block, AV (Acute) Hypothyroidism (Acute) Osteoarthritis (Acute) Prophylactic measure (Acute) Tobacco dependence (Acute) Volume overload (Acute) Hospital Course: HOSPITAL COURSE: Date of Admission:09/15/19 Date of Discharge: 09/21/19 Problem List - Problems (1) Fibromyalgia Assessment/Plan: supportive care c/w PT c/w pain regimine Code(s): M79.7 - FIBROMYALGIA (2) Osteoarthritis Assessment/Plan: pt taking hydrocodone at home changed to roxicodone withpout tylenol given elevated LFTs c/w pain management doctor at home Code(s): M19.90 - UNSPECIFIED OSTEOARTHRITIS, UNSPECIFIED SITE (3) DMII (diabetes mellitus, type 2) Assessment/Plan: BGM AC/HS with novolog sliding scale diabetic diet blood glucose well controlled during stay Can transition back to glucophage Code(s): E11.9 - TYPE 2 DIABETES MELLITUS WITHOUT COMPLICATIONS (4) HTN (hypertension) Assessment/Plan: BP better controlled with addition of amlodopine 5mg c/w hctz, cozaar avoid betablockers or any AV sadiq agents Code(s): I10 - ESSENTIAL (PRIMARY) HYPERTENSION (5) Heart block, AV Assessment/Plan: sinus rhythm with now intermittent complete heart block and junctional escape rhythm Continue to avoid AV sadiq slowing agents c/w synthroid lyme titers negative TTE showed normal LVEF normal RV function, mod to sev TR, severe PAH, mild MR being transfered to Dr Mejia for EP study Pt adequately diuresed. Wt down 18 kg since admission Code(s): I44.30 - UNSPECIFIED ATRIOVENTRICULAR BLOCK (6) Hypothyroidism Assessment/Plan: TSH 31.7 c/w synthroid follow TSH in 2 weeks Code(s): E03.9 - HYPOTHYROIDISM, UNSPECIFIED (7) Prophylactic measure Assessment/Plan: FEN no additional IVF needed diabetic low sodium diet monitor electrolytes DVT heparin sq during hospital stay Dipso Full code status transfer to [facility] for further testing Code(s): Z29.9 - ENCOUNTER FOR PROPHYLACTIC MEASURES, UNSPECIFIED (8) Tobacco dependence Assessment/Plan: c/w nicotine patch counseled on smoking cessation Code(s): F17.200 - NICOTINE DEPENDENCE, UNSPECIFIED, UNCOMPLICATED (9) Asthma Assessment/Plan: c/w duonebs Code(s): J45.909 - UNSPECIFIED ASTHMA, UNCOMPLICATED (10) Ascites Assessment/Plan: diagnostic paracentesis done and no ascites seen. complete US done for assess vessel patency. Cirrhosis seen on US Code(s): R18.8 - OTHER ASCITES Stable for transfer to [facility] under Dr Mejia Condition: Stable - Instructions Diet, Activity, Other Instructions: Transfer to [facility] 6[address] Rahul Mejia for EP studies. Your medications may be changed when you are discharged from [facility]. They mediations that youre been discharged from [facility] are: Norvasc (amlodopine) blood pressure Cozaar (losartan) blood pressure Colace stool softnener Lasix water pill Hydrochlorothiazide (HctZ) water pill Synthroid (thyroid) Nicotine patch roxicodone pain pill DO NOT TAKE THIS WITH THE NORCO/HYDROCODONE senna metformin When you go home DO NOT TAKE Cardizem or Benazepril (Lotensin) Follow with you pain management doctor after you get home You can see Dr Baltazar the knitter hand or follow with you own knitter hand You can see Dr Kyle the pulmonary doctor or follow with you own doctor It was been a pleasure taking care of you and good luck with your recovery Referrals: Pablo Baltazar MD [Staff Physician] - Remy Kyle MD, MD [Staff Physician] - Disposition: TRANSFER ACUTE CARE/OTHER HOSP - Home Medications Comprehensive Discharge Medication List: Ambulatory Orders Hydrochlorothiazide [Hctz -] 25 mg PO DAILY 09/15/19 Amlodipine Besylate [Norvasc -] 5 mg PO DAILY #30 tablet 09/21/19 Docusate Sodium [Colace -] 100 mg PO BID #60 capsule 09/21/19 Famotidine [Pepcid -] 20 mg PO DAILY #30 tablet 09/21/19 Furosemide [Lasix -] 20 mg PO DAILY #30 tablet 09/21/19 Hydrochlorothiazide [Hctz -] 25 mg PO DAILY #30 tablet 09/21/19 Insulin Sliding Scale [Novolog Vial Sliding Scale -] 1 vial SQ ACHS units 09/21 Levothyroxine [Synthroid -] 200 mcg PO 0700 #60 tablet 09/21/19 Losartan Potassium [Cozaar -] 50 mg PO DAILY #30 tablet 09/21/19 Metformin HCl [Glucophage] 500 mg PO BID #60 tablet 09/21/19 Metoclopramide HCl [Reglan -] 10 mg PO TID PRN #90 tablet 09/21/19 Nicotine Patch [Nicoderm Patch -] 21 mg TD DAILY #30 patch 09/21/19 Sennosides [Senna -] 2 tab PO HS #60 tablet 09/21/19 oxyCODONE HCL [Roxicodone -] 10 mg PO Q6H PRN #120 tablet MDD 40mg 09/21/19 Problem List - Problems (1) Fibromyalgia Code(s): M79.7 - FIBROMYALGIA (2) Osteoarthritis Code(s): M19.90 - UNSPECIFIED OSTEOARTHRITIS, UNSPECIFIED SITE (3) DMII (diabetes mellitus, type 2) Code(s): E11.9 - TYPE 2 DIABETES MELLITUS WITHOUT COMPLICATIONS (4) HTN (hypertension) Code(s): I10 - ESSENTIAL (PRIMARY) HYPERTENSION (5) Heart block, AV Code(s): I44.30 - UNSPECIFIED ATRIOVENTRICULAR BLOCK (6) Hypothyroidism Code(s): E03.9 - HYPOTHYROIDISM, UNSPECIFIED (7) Prophylactic measure Code(s): Z29.9 - ENCOUNTER FOR PROPHYLACTIC MEASURES, UNSPECIFIED (8) Tobacco dependence Code(s): F17.200 - NICOTINE DEPENDENCE, UNSPECIFIED, UNCOMPLICATED (9) Asthma Code(s): J45.909 - UNSPECIFIED ASTHMA, UNCOMPLICATED (10) Ascites Code(s): R18.8 - OTHER ASCITES This patient is new to me today: No Emergency Visit: Yes ED Registration Date: 09/15/19 Care time: The patient presented to the Emergency Department on the above date and was hospitalized for further evaluation of their emergent condition. Critical Care patient: No - Discharge Referral Referred to [facility] Med P.C.: No
--- NOTE | 2019-09-21 13:02 | PN ---
Progress Note, Physician - Current Medication List Current Medications: Active Medications Acetaminophen (Tylenol -) 650 mg PO Q6H PRN PRN Reason: PAIN LEVEL 4 - 6 Last Admin: 09/21/19 10:28 Dose: 650 mg Albuterol/Ipratropium (Duoneb -) 1 amp NEB RQID [facility] Last Admin: 09/21/19 11:10 Dose: 1 amp Amlodipine Besylate (Norvasc -) 5 mg PO DAILY [facility] Last Admin: 09/21/19 10:24 Dose: 5 mg Docusate Sodium (Colace -) 100 mg PO BID [facility] Last Admin: 09/21/19 10:24 Dose: 100 mg Famotidine (Pepcid -) 20 mg PO DAILY [facility] Last Admin: 09/21/19 10:24 Dose: 20 mg Furosemide (Lasix -) 20 mg PO DAILY [facility] Last Admin: 09/21/19 10:24 Dose: 20 mg Heparin Sodium (Porcine) (Heparin -) 5,000 unit SQ TID [facility] Last Admin: 09/21/19 05:57 Dose: 5,000 unit Hydrochlorothiazide (Hctz -) 25 mg PO DAILY [facility] Last Admin: 09/21/19 10:24 Dose: 25 mg Insulin Aspart (Novolog Vial Sliding Scale -) 1 vial SQ [facility]; Protocol Last Admin: 09/21/19 11:13 Dose: 3 units Levothyroxine Sodium (Synthroid -) 200 mcg PO 0700 [facility] Last Admin: 09/21/19 06:02 Dose: 200 mcg Losartan Potassium (Cozaar -) 50 mg PO DAILY [facility] Last Admin: 09/21/19 10:24 Dose: 50 mg Metoclopramide HCl (Reglan -) 10 mg PO TID PRN PRN Reason: NAUSEA AND/OR VOMITING Nicotine (Nicoderm Patch -) 21 mg TD DAILY [facility] Last Admin: 09/21/19 10:25 Dose: 21 mg Oxycodone HCl (Roxicodone -) 10 mg PO Q6H PRN PRN Reason: PAIN LEVEL 7 - 10 Last Admin: 09/21/19 12:37 Dose: 10 mg Polyethylene Glycol (Miralax (For Daily Use) -) 17 gm PO BID [facility] Last Admin: 09/21/19 10:25 Dose: 17 gm Senna (Senna -) 2 tab PO HS [facility] Last Admin: 09/20/19 21:37 Dose: 2 tab Sodium Chloride ([place] Nasal [place] -) 2 spray NS TID PRN PRN Reason: NASAL CONGESTION - Objective Vital Signs: Vital Signs Temperature 98.0 F 09/21/19 08:47 Pulse Rate 64 09/21/19 08:47 Respiratory Rate 18 09/21/19 08:47 Blood Pressure 153/57 L 09/21/19 08:47 O2 Sat by Pulse Oximetry (%) 95 09/21/19 09:00 Labs: CBC, BMP 09/21/19 06:20 09/21/19 06:20 INR, PTT INR 1.09 (0.83-1.09) 09/19/19 05:20
[2019-09-21 14:47] VITALS: BP 131/52; PULSE 61; TEMP 98.4
== END 2019-09-21 18:18 | disposition short-term general hospital (02) | DRG 308 ==
LOC: JER 13:44 → JERBED 15:18 → JICU 20:12 → J4S 09-17 22:53
PROVIDERS: ADMIT Internal Medicine; ATTEND Nurse Practitioner Acute Care
PROC: 0W9G3ZX Drainage of Peritoneal Cavity, Percutaneous Approach, Diagnostic (ICD-10-PCS; principal; 2019-09-19)
DX: I44.2 Atrioventricular block, complete (principal); I50.33 Acute on chronic diastolic (congestive) heart failure; J98.11 Atelectasis; R18.8 Other ascites; I11.0 Hypertensive heart disease with heart failure; E78.5 Hyperlipidemia, unspecified; F17.210 Nicotine dependence, cigarettes, uncomplicated; E03.9 Hypothyroidism, unspecified; R60.1 Generalized edema; M79.7 Fibromyalgia; E11.649 Type 2 diabetes mellitus with hypoglycemia without coma; M19.90 Unspecified osteoarthritis, unspecified site; J45.909 Unspecified asthma, uncomplicated; E87.70 Fluid overload, unspecified; I27.20 Pulmonary hypertension, unspecified
CPT/HCPCS: 36415; 36600; 71045-TC-FY; 71275-TC; 74177-TC; 76700-TC; 76830-TC; 76942-TC; 80053; 80061; 80074; 81003; 82375; 82550; 82552; 82553; 82803; 82962; 83036; 83050; 83516; 83520; 83605; 83721; 83735; 83880; 84100; 84439; 84443; 84484; 85025; 85610; 85651; 85730; 86038; 86256; 86618; 86850; 86900; 86901; 87086; 93005; 93010; 93306-TC; 93970-TC; 93975; 94640; 99285-25; J0131; J1644

== ENCOUNTER 2022-09-21 21:44 | Inpatient (IN) | payer OTHER ==
[2022-09-21 21:50] VITALS: BMI 35.2
[2022-09-21] MEDS ORDERED: methylPREDNISolone NA SUCC 125 MG/2 ML VIAL IVPUSH ONE (22:03)
[2022-09-21] MEDS ORDERED: ALBUTEROL SO4 2.5/IPRATROPIUM 0.5 INH SOL 3 ML VIAL.NEB. NEB SCH (22:15)
[2022-09-21] MEDS ORDERED: HYDROmorphone HCL CARPU-JECT 2 MG/1 ML DISP.SYRIN IVPUSH ONE (23:08)
[2022-09-21] MEDS ORDERED: HYDROmorphone HCl 2 MG/ML VIAL ONE (23:24)
[2022-09-22 00:07] LABS: HEMOGLOBIN 9.5 GM/dL (10.7-15.3); RBC 2.94 M/mm3 (3.60-5.2)
[2022-09-22 00:08] LABS: BASO % 0.9 % (0-2.0); EOS % 2.5 % (0-4.5); HEMATOCRIT 28.8 % (32.4-45.2); LYMPH % 13.3 % (8-40); MCH 32.3 pg (25.7-33.7); MEAN CELL VOLUME 97.9 fl (80-96); MEAN PLT VOLUME 8.6 fl (7.5-11.1); MONO % 7.4 % (3.8-10.2); NEUT % 75.9 % (42.8-82.8); PLATELET COUNT 369 10^3/uL (134-434); RDW 15.8 % (11.6-15.6)
[2022-09-22 00:16] LABS: VENOUS BASE EXCESS -2.4 mmol/L (-2-2); VENOUS O2 SATURATION 50.9 % (70-80); VENOUS PCO2 56.1 mmHg (38-52); VENOUS PH 7.275 (7.310-7.410)
[2022-09-22 00:19] LABS: INR 1.02 (0.83-1.09); PROTHROMBIN TIME (PATIENT) 11.7 SEC (9.7-13.0)
[2022-09-22 00:22] LABS: ACTIVATED PTT 32.1 SECONDS (25.2-36.5)
[2022-09-22 00:33] LABS: CHLORIDE 96 mmol/L (98-107); SODIUM 132 mmol/L (136-145)
[2022-09-22 00:35] LABS: CALCIUM 8.9 mg/dL (8.5-10.1)
[2022-09-22 00:36] LABS: ALBUMIN 2.9 g/dl (3.4-5.0); ANION GAP 10 MMOL/L (8-16); BLOOD UREA NITROGEN 74.3 mg/dL (7-18); CO2 25 mmol/L (21-32); GLUCOSE,RANDOM 135 mg/dL (74-106)
[2022-09-22 00:39] LABS: CREATININE 2.6 mg/dL (0.55-1.3); PHOSPHOROUS 5.4 mg/dL (2.5-4.9); SGOT/AST 81 U/L (15-37); SGPT/ALT 62 U/L (13-61)
[2022-09-22 00:40] LABS: BILIRUBIN,TOTAL 0.3 mg/dL (0.2-1)
[2022-09-22 00:41] LABS: TOT PROT 7.9 g/dl (6.4-8.2)
[2022-09-22 00:42] LABS: ALK PHOS 509 U/L (45-117); N-TERMINAL BNP 6169.3 pg/ml (5-450)
[2022-09-22 00:45] LABS: LACTIC ACID 2.7 mmol/L (0.4-2.0)
[2022-09-22] MEDS ORDERED: ALBUTEROL SO4 2.5/IPRATROPIUM 0.5 INH SOL 3 ML VIAL.NEB. NEB SCH (02:30)
[2022-09-22] MEDS ORDERED: hydrALAZINE HCL 25 MG TABLET (FP) PO SCH (02:30)
[2022-09-22] MEDS ORDERED: FUROSEMIDE 40 MG/4 ML INJECTABLE VIAL IVPUSH SCH (03:15)
[2022-09-22] MEDS ORDERED: DOCUSATE SODIUM 100 MG CAPSULE (FP) PO SCH (06:00)
[2022-09-22 06:55] LABS: EPI CELLS 14 /uL (0-25.1); HYALINE CASTS 10 /uL (0-3.1); URINE APPEARANCE TURBID; URINE BILIRUBIN 1+ (NEGATIVE); URINE COLOR ORANGE; URINE GLUCOSE (UA) NEGATIVE (NEGATIVE); URINE KETONE NEGATIVE (NEGATIVE); URINE LEUK ESTERASE 3+ (NEGATIVE); URINE NITRITE NEGATIVE (NEGATIVE); URINE PROTEIN 3+ (NEGATIVE); URINE UROBILINOGEN 0.2 mg/dL (0.2-1.0); URINE WBC 7790 /uL (0-25.8)
[2022-09-22] MEDS ORDERED: hydrALAZINE HCL 25 MG TABLET (FP) ONE (07:17)
[2022-09-22] MEDS ORDERED: FUROSEMIDE 40 MG/4 ML INJECTABLE VIAL ONE ×2 (07:18→14:11)
[2022-09-22] MEDS ORDERED: DOCUSATE SODIUM 100 MG CAPSULE (FP) PO ONE (07:18)
[2022-09-22] MEDS: hydrALAZINE HCL 25 MG TABLET (FP) PO SCH ×2 (07:28→14:11)
[2022-09-22] MEDS ORDERED: ALBUTEROL SO4 2.5/IPRATROPIUM 0.5 INH SOL 3 ML VIAL.NEB. NEB ONE ×2 (07:42→14:36)
[2022-09-22] MEDS ORDERED: LEVOTHYROXINE NA 75 MCG TABLET (FP) ONE (07:43)
[2022-09-22] MEDS: LEVOTHYROXINE NA 150 MCG TABLET PO SCH (07:45)
[2022-09-22 07:57] LABS: CHLORIDE 96 mmol/L (98-107); SODIUM 132 mmol/L (136-145)
[2022-09-22 08:02] LABS: BASO % 1.3 % (0-2.0); EOS % 4.1 % (0-4.5); HEMATOCRIT 27.6 % (32.4-45.2); HEMOGLOBIN 9.1 GM/dL (10.7-15.3); LYMPH % 14.1 % (8-40); MCH 32.8 pg (25.7-33.7); MCHC 33.1 g/dl (32.0-36.0); MEAN CELL VOLUME 98.8 fl (80-96); MONO % 9.6 % (3.8-10.2); NEUT % 70.9 % (42.8-82.8); PLATELET COUNT 295 10^3/uL (134-434); RBC 2.79 M/mm3 (3.60-5.2); RDW 15.7 % (11.6-15.6); WHITE BLOOD COUNT 10.5 K/mm3 (4.0-10.0)
[2022-09-22] MEDS: ALBUTEROL SO4 2.5/IPRATROPIUM 0.5 INH SOL 3 ML VIAL.NEB. NEB SCH ×2 (08:03→14:36)
[2022-09-22 08:05] LABS: ALBUMIN 2.8 g/dl (3.4-5.0); ANION GAP 8 MMOL/L (8-16); CALCIUM 8.6 mg/dL (8.5-10.1); CO2 28 mmol/L (21-32); GLUCOSE,RANDOM 88 mg/dL (74-106); MAGNESIUM 3.1 mg/dL (1.8-2.4)
[2022-09-22 08:06] LABS: BLOOD UREA NITROGEN 73.1 mg/dL (7-18)
[2022-09-22 08:08] LABS: SGPT/ALT 60 U/L (13-61)
[2022-09-22 08:09] LABS: CREATININE 2.6 mg/dL (0.55-1.3); SGOT/AST 76 U/L (15-37)
[2022-09-22 08:10] LABS: BILIRUBIN,TOTAL 0.3 mg/dL (0.2-1); TOT PROT 7.6 g/dl (6.4-8.2)
[2022-09-22 08:16] LABS: ALK PHOS 477 U/L (45-117)
[2022-09-22] MEDS ORDERED: HYDROmorphone HCl 2 MG/ML VIAL ONE ×2 (08:36→18:49)
[2022-09-22] MEDS: HYDROmorphone HCl 2 MG/ML VIAL IVPUSH PRN ×2 (08:46→18:56)
[2022-09-22 09:26] LABS: URINE BACTERIA 36 /uL (0-1359); URINE RBC 22185 /uL (0-23.9)
[2022-09-22] MEDS ORDERED: NIFEdipine E.R. 30 MG TABLET ONE (09:57)
[2022-09-22] MEDS ORDERED: FERROUS SO4 325 MG TABLET (FP) ONE (09:58)
[2022-09-22] MEDS ORDERED: NIFEdipine E.R. 30 MG TABLET PO SCH (10:00)
[2022-09-22] MEDS ORDERED: FUROSEMIDE 20 MG TABLET (FP) PO SCH (10:00)
[2022-09-22] MEDS: FERROUS SO4 325 MG TABLET (FP) PO SCH (10:03)
[2022-09-22] MEDS: RIFAXIMIN 550 MG TABLET PO SCH ×2 (10:04→22:48)
[2022-09-22] MEDS ORDERED: SODIUM CHLORIDE 250 ML IV PRN ×2 (13:23→13:26)
[2022-09-22] MEDS ORDERED: VANCOMYCIN 1 GM/200 ML PREMIX BAG (RESTRICTED TO ID ONLY) IVPB ONE (13:47)
[2022-09-22] MEDS: FUROSEMIDE 40 MG/4 ML INJECTABLE VIAL IVPUSH SCH ×2 (14:11→22:30)
[2022-09-22] MEDS: SEVELAMER CARBONATE 800 MG TAB (FP) PO SCH (14:35)
[2022-09-22] MEDS ORDERED: VANCOMYCIN/WATER FOR INJ (PEG) 1,000 MG/200 ML BAG IVPB ONE (14:44)
[2022-09-22] MEDS ORDERED: PIPERACILLIN/TAZOB 2.25 GM 2.25 GM/50 ML BAG IVPB ONE (15:22)
[2022-09-22] MEDS: ALBUMIN HUMAN 25% 12.5 GM/50 ML VIAL IV SCH ×4 (17:10→18:58)
[2022-09-22] MEDS ORDERED: POLYETHYLENE GLYCOL (HEALTHYLAX) 3350 17 GM PACKET PO SCH (22:00)
[2022-09-22] MEDS: PIPERACILLIN/TAZOB 2.25 GM 2.25 GM in DEXTROSE 5%-WATER - 50 ML IVPB SCH ×2 (22:27)
[2022-09-22] MEDS: HEPARIN NA (PORCINE) 5,000 UNITS/ML 1ML VIAL SQ SCH (22:32)
[2022-09-22] MEDS: SENNOSIDES 8.6MG TABLET (FP) PO SCH ×2 (22:38→22:48)
[2022-09-22] MEDS: ATORVASTATIN CA 80 MG TABLET (FP) PO SCH (22:47)
[2022-09-22] MEDS: LACTULOSE 20 GM/30 ML UDC (FOR ORAL USE ONLY) PO SCH (22:47)
[2022-09-23] MEDS: PIPERACILLIN/TAZOB 2.25 GM 2.25 GM in DEXTROSE 5%-WATER - 50 ML IVPB SCH ×4 (02:33→23:02)
[2022-09-23] MEDS: FUROSEMIDE 40 MG/4 ML INJECTABLE VIAL IVPUSH SCH ×2 (06:19→16:21)
[2022-09-23] MEDS: LACTULOSE 20 GM/30 ML UDC (FOR ORAL USE ONLY) PO SCH ×3 (06:19→23:00)
[2022-09-23] MEDS: LEVOTHYROXINE NA 150 MCG TABLET PO SCH (06:19)
[2022-09-23 08:24] LABS: CALCIUM 8.3 mg/dL (8.5-10.1)
[2022-09-23 08:25] LABS: BLOOD UREA NITROGEN 53.8 mg/dL (7-18)
[2022-09-23 08:27] LABS: CREATININE 2.4 mg/dL (0.55-1.3)
[2022-09-23] MEDS: FERROUS SO4 325 MG TABLET (FP) PO SCH (09:02)
[2022-09-23] MEDS: SEVELAMER CARBONATE 800 MG TAB (FP) PO SCH ×3 (09:02→18:35)
[2022-09-23] MEDS: RIFAXIMIN 550 MG TABLET PO SCH (09:03)
[2022-09-23] MEDS: HEPARIN NA (PORCINE) 5,000 UNITS/ML 1ML VIAL SQ SCH ×2 (09:03→23:01)
[2022-09-23] MEDS: ALBUTEROL SO4 2.5/IPRATROPIUM 0.5 INH SOL 3 ML VIAL.NEB. NEB SCH ×4 (10:00→20:32)
[2022-09-23] MEDS ORDERED: SPIRONOLACTONE 25 MG TABLET PO SCH (10:00)
[2022-09-23] MEDS: HYDROmorphone HCl 2 MG/ML VIAL IVPUSH PRN ×2 (12:00→20:34)
[2022-09-23] MEDS: LIDOCAINE 5% TOPICAL PATCH TP SCH (12:10)
[2022-09-23 12:14] LABS: ALBUMIN 2.8 g/dl (3.4-5.0)
[2022-09-23 12:19] LABS: BILIRUBIN,DIRECT 0.2 mg/dL (0.0-0.2); TOT PROT 6.5 g/dl (6.4-8.2)
[2022-09-23 12:20] LABS: BILIRUBIN,TOTAL 0.5 mg/dL (0.2-1)
[2022-09-23 13:11] LABS: EOS % 1.1 % (0-4.5); HEMATOCRIT 23.2 % (32.4-45.2); HEMOGLOBIN 7.7 GM/dL (10.7-15.3); LYMPH % 16.3 % (8-40); MCH 32.5 pg (25.7-33.7); MCHC 33.4 g/dl (32.0-36.0); MEAN CELL VOLUME 97.3 fl (80-96); MEAN PLT VOLUME 8.8 fl (7.5-11.1); MONO % 8.1 % (3.8-10.2); NEUT % 73.5 % (42.8-82.8); PLATELET COUNT 175 10^3/uL (134-434); RBC 2.38 M/mm3 (3.60-5.2); RDW 15.6 % (11.6-15.6); WHITE BLOOD COUNT 8.2 K/mm3 (4.0-10.0)
[2022-09-23 13:15] LABS: INR 1.16 (0.83-1.09); PROTHROMBIN TIME (PATIENT) 13.4 SEC (9.7-13.0)
[2022-09-23] MEDS: ATORVASTATIN CA 80 MG TABLET (FP) PO SCH (23:01)
[2022-09-23] MEDS: LIDOCAINE PATCH REMOVAL MC SCH (23:02)
[2022-09-24] MEDS: PIPERACILLIN/TAZOB 2.25 GM 2.25 GM in DEXTROSE 5%-WATER - 50 ML IVPB SCH ×4 (03:10→23:37)
[2022-09-24] MEDS: HYDROmorphone HCl 2 MG/ML VIAL IVPUSH PRN ×4 (03:11→23:54)
[2022-09-24] MEDS: LACTULOSE 20 GM/30 ML UDC (FOR ORAL USE ONLY) PO SCH ×3 (06:00→23:37)
[2022-09-24] MEDS: LEVOTHYROXINE NA 150 MCG TABLET PO SCH (06:32)
[2022-09-24] MEDS: ALBUTEROL SO4 2.5/IPRATROPIUM 0.5 INH SOL 3 ML VIAL.NEB. NEB SCH ×4 (08:13→20:00)
[2022-09-24 08:21] LABS: BASO % 1.5 % (0-2.0); HEMATOCRIT 26.8 % (32.4-45.2); LYMPH % 24.2 % (8-40); MCH 32.3 pg (25.7-33.7); MCHC 33.8 g/dl (32.0-36.0); MEAN CELL VOLUME 95.8 fl (80-96); MEAN PLT VOLUME 8.4 fl (7.5-11.1); MONO % 11.6 % (3.8-10.2); NEUT % 60.7 % (42.8-82.8); PLATELET COUNT 175 10^3/uL (134-434); RDW 15.5 % (11.6-15.6); WHITE BLOOD COUNT 8.2 K/mm3 (4.0-10.0)
[2022-09-24 08:23] LABS: INR 1.12 (0.83-1.09); PROTHROMBIN TIME (PATIENT) 12.9 SEC (9.7-13.0)
[2022-09-24] MEDS: SEVELAMER CARBONATE 800 MG TAB (FP) PO SCH ×3 (08:30→18:53)
[2022-09-24 08:40] LABS: CALCIUM 8.2 mg/dL (8.5-10.1)
[2022-09-24 08:41] LABS: ALBUMIN 2.7 g/dl (3.4-5.0); BLOOD UREA NITROGEN 62.5 mg/dL (7-18)
[2022-09-24 08:44] LABS: BILIRUBIN,DIRECT 0.3 mg/dL (0.0-0.2)
[2022-09-24 08:45] LABS: BILIRUBIN,TOTAL 0.8 mg/dL (0.2-1); TOT PROT 6.9 g/dl (6.4-8.2)
[2022-09-24] MEDS: HEPARIN NA (PORCINE) 5,000 UNITS/ML 1ML VIAL SQ SCH ×2 (10:30→23:36)
[2022-09-24] MEDS: FERROUS SO4 325 MG TABLET (FP) PO SCH (10:30)
[2022-09-24] MEDS: LIDOCAINE 5% TOPICAL PATCH TP SCH (10:31)
[2022-09-24] MEDS: FUROSEMIDE 40 MG/4 ML INJECTABLE VIAL IVPUSH SCH (10:31)
[2022-09-24] MEDS ORDERED: EPOETIN ALFA-EPBX 10,000 UNIT/ML VIAL SQ ONE (12:35)
[2022-09-24] MEDS ORDERED: HEPARIN NA (PORCINE) 5,000 UNITS/ML 1ML VIAL IVPUSH ONE (12:35)
[2022-09-24] MEDS ORDERED: SODIUM CHLORIDE 250 ML IV PRN (12:35)
[2022-09-24] MEDS: ALBUMIN HUMAN 25% 12.5 GM/50 ML VIAL IV SCH ×3 (14:50→15:45)
[2022-09-24 17:07] LABS: GLIADIN ANTIBODY IGA 4 units (0-19); GLIADIN ANTIBODY IGG 2 units (0-19); TRANSGLUTAMINASE IGG < 2 U/mL (0-5)
[2022-09-24] MEDS: INSULIN SLIDING SCALE (NOVOLOG) 1 VIAL SQ SCH ×2 (17:54→23:37)
[2022-09-24] MEDS: ATORVASTATIN CA 80 MG TABLET (FP) PO SCH (23:36)
[2022-09-24] MEDS: LIDOCAINE PATCH REMOVAL MC SCH (23:37)
[2022-09-25] MEDS ORDERED: PIPERACILLIN/TAZOBACTAM 2.25 GM VIAL IVPB ONE (03:22)
[2022-09-25] MEDS: PIPERACILLIN/TAZOB 2.25 GM 2.25 GM in DEXTROSE 5%-WATER - 50 ML IVPB SCH ×4 (04:30→21:02)
[2022-09-25] MEDS: HYDROmorphone HCl 2 MG/ML VIAL IVPUSH PRN ×3 (05:40→22:56)
[2022-09-25] MEDS: LACTULOSE 20 GM/30 ML UDC (FOR ORAL USE ONLY) PO SCH ×2 (05:40→15:57)
[2022-09-25] MEDS: INSULIN SLIDING SCALE (NOVOLOG) 1 VIAL SQ SCH ×4 (06:21→22:55)
[2022-09-25] MEDS: LEVOTHYROXINE NA 150 MCG TABLET PO SCH (06:21)
[2022-09-25] MEDS: ALBUTEROL SO4 2.5/IPRATROPIUM 0.5 INH SOL 3 ML VIAL.NEB. NEB SCH ×5 (07:20→20:05)
[2022-09-25 07:28] LABS: BASO % 1.2 % (0-2.0); HEMATOCRIT 26.9 % (32.4-45.2); HEMOGLOBIN 8.9 GM/dL (10.7-15.3); LYMPH % 17.8 % (8-40); MEAN CELL VOLUME 97.1 fl (80-96); MEAN PLT VOLUME 8.4 fl (7.5-11.1); MONO % 12.1 % (3.8-10.2); NEUT % 64.9 % (42.8-82.8); PLATELET COUNT 113 10^3/uL (134-434); RBC 2.77 M/mm3 (3.60-5.2); RDW 15.6 % (11.6-15.6)
[2022-09-25 07:29] LABS: INR 1.19 (0.83-1.09); PROTHROMBIN TIME (PATIENT) 13.7 SEC (9.7-13.0)
[2022-09-25 07:51] LABS: CALCIUM 8.1 mg/dL (8.5-10.1)
[2022-09-25 07:52] LABS: ALBUMIN 2.9 g/dl (3.4-5.0); BLOOD UREA NITROGEN 44.2 mg/dL (7-18)
[2022-09-25 07:53] LABS: CREATININE 2.6 mg/dL (0.55-1.3)
[2022-09-25] MEDS: SEVELAMER CARBONATE 800 MG TAB (FP) PO SCH ×4 (07:53→17:27)
[2022-09-25 07:54] LABS: BILIRUBIN,DIRECT 0.3 mg/dL (0.0-0.2); BILIRUBIN,TOTAL 0.6 mg/dL (0.2-1); TOT PROT 6.7 g/dl (6.4-8.2)
[2022-09-25] MEDS: FERROUS SO4 325 MG TABLET (FP) PO SCH (09:33)
[2022-09-25] MEDS: HEPARIN NA (PORCINE) 5,000 UNITS/ML 1ML VIAL SQ SCH ×2 (09:33→21:03)
[2022-09-25] MEDS: PANTOPRAZOLE 40 MG TABLET PO SCH (09:34)
[2022-09-25] MEDS: FUROSEMIDE 40 MG/4 ML INJECTABLE VIAL IVPUSH SCH (09:34)
[2022-09-25] MEDS: LIDOCAINE 5% TOPICAL PATCH TP SCH (09:40)
[2022-09-25] MEDS: ATORVASTATIN CA 80 MG TABLET (FP) PO SCH (21:03)
[2022-09-25] MEDS: LIDOCAINE PATCH REMOVAL MC SCH (22:56)
[2022-09-26] MEDS: PIPERACILLIN/TAZOB 2.25 GM 2.25 GM in DEXTROSE 5%-WATER - 50 ML IVPB SCH ×4 (02:33→21:59)
[2022-09-26] MEDS: LEVOTHYROXINE NA 150 MCG TABLET PO SCH (06:27)
[2022-09-26] MEDS: INSULIN SLIDING SCALE (NOVOLOG) 1 VIAL SQ SCH ×4 (06:29→22:11)
[2022-09-26] MEDS: SEVELAMER CARBONATE 800 MG TAB (FP) PO SCH ×3 (07:55→16:50)
[2022-09-26] MEDS: HYDROmorphone HCl 2 MG/ML VIAL IVPUSH PRN (07:55)
[2022-09-26 08:21] LABS: BASO % 1.3 % (0-2.0); EOS % 6.4 % (0-4.5); HEMATOCRIT 27.4 % (32.4-45.2); LYMPH % 19.2 % (8-40); MCH 32.4 pg (25.7-33.7); MCHC 32.9 g/dl (32.0-36.0); MEAN CELL VOLUME 98.7 fl (80-96); MEAN PLT VOLUME 7.9 fl (7.5-11.1); MONO % 10.7 % (3.8-10.2); NEUT % 62.4 % (42.8-82.8); PLATELET COUNT 104 10^3/uL (134-434); RBC 2.78 M/mm3 (3.60-5.2); RDW 15.7 % (11.6-15.6); WHITE BLOOD COUNT 8.9 K/mm3 (4.0-10.0)
[2022-09-26 08:37] LABS: CALCIUM 7.8 mg/dL (8.5-10.1)
[2022-09-26 08:38] LABS: ALBUMIN 2.6 g/dl (3.4-5.0); BILIRUBIN,DIRECT 0.2 mg/dL (0.0-0.2); BLOOD UREA NITROGEN 48.8 mg/dL (7-18)
[2022-09-26] MEDS: ALBUTEROL SO4 2.5/IPRATROPIUM 0.5 INH SOL 3 ML VIAL.NEB. NEB SCH ×4 (08:38→20:05)
[2022-09-26 08:40] LABS: BILIRUBIN,TOTAL 0.5 mg/dL (0.2-1); TOT PROT 6.3 g/dl (6.4-8.2)
[2022-09-26] MEDS: FUROSEMIDE 40 MG/4 ML INJECTABLE VIAL IVPUSH SCH (09:36)
[2022-09-26] MEDS: HEPARIN NA (PORCINE) 5,000 UNITS/ML 1ML VIAL SQ SCH ×2 (09:36→22:02)
[2022-09-26] MEDS: PANTOPRAZOLE 40 MG TABLET PO SCH (09:36)
[2022-09-26] MEDS: FERROUS SO4 325 MG TABLET (FP) PO SCH (09:36)
[2022-09-26] MEDS: LIDOCAINE 5% TOPICAL PATCH TP SCH (11:50)
[2022-09-26 12:53] LABS: INR 1.21 (0.83-1.09); PROTHROMBIN TIME (PATIENT) 13.9 SEC (9.7-13.0)
[2022-09-26] MEDS: LACTULOSE 20 GM/30 ML UDC (FOR ORAL USE ONLY) PO SCH ×2 (13:50→22:02)
[2022-09-26] MEDS: HYDROmorphone HCL 2 MG TABLET PO PRN ×2 (17:08→22:12)
[2022-09-26] MEDS: ATORVASTATIN CA 80 MG TABLET (FP) PO SCH (22:01)
[2022-09-26] MEDS: LIDOCAINE PATCH REMOVAL MC SCH (22:11)
[2022-09-27] MEDS: PIPERACILLIN/TAZOB 2.25 GM 2.25 GM in DEXTROSE 5%-WATER - 50 ML IVPB SCH ×4 (02:55→22:20)
[2022-09-27] MEDS: LACTULOSE 20 GM/30 ML UDC (FOR ORAL USE ONLY) PO SCH ×3 (05:35→22:22)
[2022-09-27] MEDS: LEVOTHYROXINE NA 150 MCG TABLET PO SCH (06:47)
[2022-09-27] MEDS: INSULIN SLIDING SCALE (NOVOLOG) 1 VIAL SQ SCH ×4 (06:47→23:26)
[2022-09-27] MEDS: ALBUTEROL SO4 2.5/IPRATROPIUM 0.5 INH SOL 3 ML VIAL.NEB. NEB SCH ×4 (07:36→20:21)
[2022-09-27] MEDS: SEVELAMER CARBONATE 800 MG TAB (FP) PO SCH ×3 (08:15→17:34)
[2022-09-27] MEDS: ALBUMIN HUMAN 25% 12.5 GM/50 ML VIAL IV SCH ×4 (09:30→12:45)
[2022-09-27 10:29] LABS: BASO % 1.3 % (0-2.0); EOS % 6.2 % (0-4.5); HEMATOCRIT 28.3 % (32.4-45.2); HEMOGLOBIN 9.2 GM/dL (10.7-15.3); LYMPH % 14.8 % (8-40); MCHC 32.5 g/dl (32.0-36.0); MEAN CELL VOLUME 98.3 fl (80-96); MEAN PLT VOLUME 8.8 fl (7.5-11.1); MONO % 7.3 % (3.8-10.2); NEUT % 70.4 % (42.8-82.8); PLATELET COUNT 118 10^3/uL (134-434); RBC 2.88 M/mm3 (3.60-5.2); RDW 15.3 % (11.6-15.6); RETICULOCYTES 2.82 % (0.5-1.5); WHITE BLOOD COUNT 8.4 K/mm3 (4.0-10.0)
[2022-09-27] MEDS: HYDROmorphone HCL 2 MG TABLET PO PRN ×2 (10:46→22:24)
[2022-09-27 10:51] LABS: ALBUMIN 2.5 g/dl (3.4-5.0); BLOOD UREA NITROGEN 51.4 mg/dL (7-18); CALCIUM 7.9 mg/dL (8.5-10.1)
[2022-09-27 10:54] LABS: BILIRUBIN,DIRECT 0.2 mg/dL (0.0-0.2); CREATININE 3.3 mg/dL (0.55-1.3); PHOSPHOROUS 6.3 mg/dL (2.5-4.9)
[2022-09-27 10:56] LABS: BILIRUBIN,TOTAL 0.6 mg/dL (0.2-1); TOT PROT 6.4 g/dl (6.4-8.2)
[2022-09-27] MEDS ORDERED: SODIUM CHLORIDE 250 ML IV PRN (11:00)
[2022-09-27] MEDS ORDERED: EPOETIN ALFA-EPBX 10,000 UNIT/ML VIAL IVPUSH ONE (11:00)
[2022-09-27] MEDS ORDERED: HEPARIN NA (PORCINE) 5,000 UNITS/ML 1ML VIAL IVPUSH ONE (11:00)
[2022-09-27] MEDS: HEPARIN NA (PORCINE) 5,000 UNITS/ML 1ML VIAL SQ SCH ×2 (12:53→22:20)
[2022-09-27] MEDS: FERROUS SO4 325 MG TABLET (FP) PO SCH (12:53)
[2022-09-27] MEDS: PANTOPRAZOLE 40 MG TABLET PO SCH (12:53)
[2022-09-27] MEDS: FUROSEMIDE 40 MG/4 ML INJECTABLE VIAL IVPUSH SCH (12:53)
[2022-09-27] MEDS: LIDOCAINE 5% TOPICAL PATCH TP SCH (12:54)
[2022-09-27] MEDS: LIDOCAINE PATCH REMOVAL MC SCH (22:22)
[2022-09-27] MEDS: ATORVASTATIN CA 80 MG TABLET (FP) PO SCH (22:22)
[2022-09-28] MEDS: PIPERACILLIN/TAZOB 2.25 GM 2.25 GM in DEXTROSE 5%-WATER - 50 ML IVPB SCH ×4 (04:06→22:22)
[2022-09-28] MEDS: LACTULOSE 20 GM/30 ML UDC (FOR ORAL USE ONLY) PO SCH ×3 (05:09→22:38)
[2022-09-28] MEDS: HYDROmorphone HCL 2 MG TABLET PO PRN ×2 (05:10→20:22)
[2022-09-28] MEDS: INSULIN SLIDING SCALE (NOVOLOG) 1 VIAL SQ SCH ×4 (06:47→22:29)
[2022-09-28] MEDS: LEVOTHYROXINE NA 150 MCG TABLET PO SCH (06:48)
[2022-09-28] MEDS: SEVELAMER CARBONATE 800 MG TAB (FP) PO SCH ×3 (07:49→17:08)
[2022-09-28] MEDS: ALBUTEROL SO4 2.5/IPRATROPIUM 0.5 INH SOL 3 ML VIAL.NEB. NEB SCH ×4 (07:55→20:01)
[2022-09-28 08:32] LABS: INR 1.33 (0.83-1.09); PROTHROMBIN TIME (PATIENT) 15.3 SEC (9.7-13.0)
[2022-09-28 08:33] LABS: BASO % 1.3 % (0-2.0); EOS % 5.2 % (0-4.5); HEMATOCRIT 31.6 % (32.4-45.2); HEMOGLOBIN 10.1 GM/dL (10.7-15.3); LYMPH % 14.9 % (8-40); MCH 31.7 pg (25.7-33.7); MCHC 31.8 g/dl (32.0-36.0); MEAN CELL VOLUME 99.6 fl (80-96); MEAN PLT VOLUME 8.9 fl (7.5-11.1); NEUT % 69.6 % (42.8-82.8); PLATELET COUNT 83 10^3/uL (134-434); RBC 3.18 M/mm3 (3.60-5.2); RDW 16.4 % (11.6-15.6); WHITE BLOOD COUNT 7.3 K/mm3 (4.0-10.0)
[2022-09-28 08:45] LABS: ALBUMIN 2.7 g/dl (3.4-5.0); BLOOD UREA NITROGEN 33.2 mg/dL (7-18); CALCIUM 8.1 mg/dL (8.5-10.1)
[2022-09-28 08:48] LABS: BILIRUBIN,DIRECT 0.2 mg/dL (0.0-0.2); CREATININE 2.6 mg/dL (0.55-1.3)
[2022-09-28 08:50] LABS: BILIRUBIN,TOTAL 0.4 mg/dL (0.2-1); TOT PROT 6.6 g/dl (6.4-8.2)
[2022-09-28] MEDS: FERROUS SO4 325 MG TABLET (FP) PO SCH (09:09)
[2022-09-28] MEDS: HEPARIN NA (PORCINE) 5,000 UNITS/ML 1ML VIAL SQ SCH ×2 (09:10→22:21)
[2022-09-28] MEDS: LIDOCAINE 5% TOPICAL PATCH TP SCH (09:10)
[2022-09-28] MEDS: FUROSEMIDE 40 MG/4 ML INJECTABLE VIAL IVPUSH SCH (09:10)
[2022-09-28] MEDS: PANTOPRAZOLE 40 MG TABLET PO SCH (09:10)
[2022-09-28] MEDS: ATORVASTATIN CA 80 MG TABLET (FP) PO SCH (22:21)
[2022-09-28] MEDS: LIDOCAINE PATCH REMOVAL MC SCH (22:22)
[2022-09-29] MEDS: PIPERACILLIN/TAZOB 2.25 GM 2.25 GM in DEXTROSE 5%-WATER - 50 ML IVPB SCH ×4 (04:38→20:54)
[2022-09-29] MEDS: HYDROmorphone HCL 2 MG TABLET PO PRN ×2 (04:43→20:31)
[2022-09-29] MEDS: INSULIN SLIDING SCALE (NOVOLOG) 1 VIAL SQ SCH ×4 (06:14→21:06)
[2022-09-29] MEDS: LACTULOSE 20 GM/30 ML UDC (FOR ORAL USE ONLY) PO SCH ×3 (06:15→21:05)
[2022-09-29] MEDS: LEVOTHYROXINE NA 150 MCG TABLET PO SCH (06:16)
[2022-09-29 08:26] LABS: INR 1.17 (0.83-1.09); PROTHROMBIN TIME (PATIENT) 13.5 SEC (9.7-13.0)
[2022-09-29] MEDS: ALBUTEROL SO4 2.5/IPRATROPIUM 0.5 INH SOL 3 ML VIAL.NEB. NEB SCH ×4 (08:35→20:40)
[2022-09-29] MEDS: SEVELAMER CARBONATE 800 MG TAB (FP) PO SCH ×3 (09:00→18:01)
[2022-09-29 09:08] LABS: HEMATOCRIT 30.3 % (32.4-45.2); HEMOGLOBIN 9.7 GM/dL (10.7-15.3); MCHC 32.1 g/dl (32.0-36.0); MEAN CELL VOLUME 99.9 fl (80-96); MEAN PLT VOLUME 8.8 fl (7.5-11.1); RBC 3.03 M/mm3 (3.60-5.2); RDW 16.2 % (11.6-15.6)
[2022-09-29 09:09] LABS: WHITE BLOOD COUNT 9.1 K/mm3 (4.0-10.0)
[2022-09-29] MEDS ORDERED: SODIUM CHLORIDE 250 ML IV PRN (09:38)
[2022-09-29] MEDS: HEPARIN NA (PORCINE) 5,000 UNITS/ML 1ML VIAL SQ SCH ×2 (10:00→21:34)
[2022-09-29 10:11] LABS: ANISOCYTOSIS 0; HELMET CELLS 0; HOWELL-JOLLY BODIES 0; MACROCYTOSIS 0; OVALOCYTE 0; ROULEAU 0; SICKELED CELLS 0; TARGET CELLS 0; TEAR DROP CELLS 0; TOXIC GRANULATION 0
[2022-09-29 10:16] LABS: BLOOD UREA NITROGEN 39.8 mg/dL (7-18); CALCIUM 8.4 mg/dL (8.5-10.1)
[2022-09-29 10:17] LABS: ALBUMIN 2.6 g/dl (3.4-5.0)
[2022-09-29 10:19] LABS: BILIRUBIN,DIRECT 0.3 mg/dL (0.0-0.2); CREATININE 2.8 mg/dL (0.55-1.3)
[2022-09-29 10:21] LABS: BILIRUBIN,TOTAL 0.4 mg/dL (0.2-1); TOT PROT 6.4 g/dl (6.4-8.2)
[2022-09-29] MEDS ORDERED: EPOETIN ALFA-EPBX 10,000 UNIT/ML VIAL IVPUSH ONE (11:00)
[2022-09-29] MEDS: FUROSEMIDE 40 MG/4 ML INJECTABLE VIAL IVPUSH SCH (13:51)
[2022-09-29] MEDS: FERROUS SO4 325 MG TABLET (FP) PO SCH (13:51)
[2022-09-29] MEDS: LIDOCAINE 5% TOPICAL PATCH TP SCH (13:51)
[2022-09-29] MEDS: PANTOPRAZOLE 40 MG TABLET PO SCH (13:51)
[2022-09-29] MEDS: LIDOCAINE PATCH REMOVAL MC SCH (21:05)
[2022-09-29 21:06] LABS: IGG QN IMMUNOGLOBULIN 1400 mg/dL (586-1602); IGG SUBCLASS 1 932 mg/dL (248-810); IGG SUBCLASS 2 233 mg/dL (130-555); IGG SUBCLASS 3 58 mg/dL (15-102)
[2022-09-29] MEDS: ATORVASTATIN CA 80 MG TABLET (FP) PO SCH (21:06)
[2022-09-30] MEDS: PIPERACILLIN/TAZOB 2.25 GM 2.25 GM in DEXTROSE 5%-WATER - 50 ML IVPB SCH ×4 (03:05→22:38)
[2022-09-30] MEDS: LACTULOSE 20 GM/30 ML UDC (FOR ORAL USE ONLY) PO SCH ×3 (06:08→22:39)
[2022-09-30] MEDS: INSULIN SLIDING SCALE (NOVOLOG) 1 VIAL SQ SCH ×4 (06:08→22:54)
[2022-09-30] MEDS: LEVOTHYROXINE NA 150 MCG TABLET PO SCH (06:09)
[2022-09-30] MEDS: ALBUTEROL SO4 2.5/IPRATROPIUM 0.5 INH SOL 3 ML VIAL.NEB. NEB SCH ×3 (07:30→15:46)
[2022-09-30] MEDS: SEVELAMER CARBONATE 800 MG TAB (FP) PO SCH ×3 (08:14→18:02)
[2022-09-30] MEDS: FUROSEMIDE 40 MG/4 ML INJECTABLE VIAL IVPUSH SCH (09:39)
[2022-09-30] MEDS: PANTOPRAZOLE 40 MG TABLET PO SCH (09:39)
[2022-09-30] MEDS: HYDROmorphone HCL 2 MG TABLET PO PRN (09:39)
[2022-09-30] MEDS: FERROUS SO4 325 MG TABLET (FP) PO SCH (09:39)
[2022-09-30] MEDS: LIDOCAINE 5% TOPICAL PATCH TP SCH (09:40)
[2022-09-30] MEDS: HEPARIN NA (PORCINE) 5,000 UNITS/ML 1ML VIAL SQ SCH ×2 (09:41→22:38)
[2022-09-30] MEDS ORDERED: SODIUM CHLORIDE 250 ML IV PRN (12:17)
[2022-09-30] MEDS: ATORVASTATIN CA 80 MG TABLET (FP) PO SCH (22:38)
[2022-09-30] MEDS: LIDOCAINE PATCH REMOVAL MC SCH (22:47)
[2022-09-30] MEDS: NYSTATIN 100,000 UNIT/GM TOPICAL CREAM 15 GM TUBE TP SCH (22:47)
[2022-10-01] MEDS: HYDROmorphone HCL 2 MG TABLET PO PRN ×3 (02:59→21:02)
[2022-10-01] MEDS: PIPERACILLIN/TAZOB 2.25 GM 2.25 GM in DEXTROSE 5%-WATER - 50 ML IVPB SCH ×4 (03:35→21:01)
[2022-10-01] MEDS: LEVOTHYROXINE NA 150 MCG TABLET PO SCH (06:21)
[2022-10-01] MEDS: LACTULOSE 20 GM/30 ML UDC (FOR ORAL USE ONLY) PO SCH ×3 (06:22→21:31)
[2022-10-01] MEDS: INSULIN SLIDING SCALE (NOVOLOG) 1 VIAL SQ SCH ×4 (06:22→21:51)
[2022-10-01] MEDS ORDERED: EPOETIN ALFA-EPBX 10,000 UNIT/ML VIAL IVPUSH ONE (07:30)
[2022-10-01] MEDS: SEVELAMER CARBONATE 800 MG TAB (FP) PO SCH ×3 (08:50→17:30)
[2022-10-01 09:16] LABS: INR 1.25 (0.83-1.09); PROTHROMBIN TIME (PATIENT) 14.4 SEC (9.7-13.0)
[2022-10-01] MEDS: PANTOPRAZOLE 40 MG TABLET PO SCH (10:00)
[2022-10-01] MEDS: LIDOCAINE 5% TOPICAL PATCH TP SCH (10:00)
[2022-10-01] MEDS: FERROUS SO4 325 MG TABLET (FP) PO SCH (10:00)
[2022-10-01] MEDS: FUROSEMIDE 40 MG/4 ML INJECTABLE VIAL IVPUSH SCH (10:00)
[2022-10-01] MEDS: NYSTATIN 100,000 UNIT/GM TOPICAL CREAM 15 GM TUBE TP SCH ×2 (10:00→21:05)
[2022-10-01] MEDS ORDERED: HEPARIN NA (PORCINE) 5,000 UNITS/ML 1ML VIAL IVPUSH ONE (12:17)
[2022-10-01] MEDS: WARFARIN NA 3 MG TABLET PO SCH (17:30)
[2022-10-01] MEDS: ATORVASTATIN CA 80 MG TABLET (FP) PO SCH (21:05)
[2022-10-01] MEDS: LIDOCAINE PATCH REMOVAL MC SCH (21:50)
[2022-10-02] MEDS: PIPERACILLIN/TAZOB 2.25 GM 2.25 GM in DEXTROSE 5%-WATER - 50 ML IVPB SCH ×3 (02:15→14:00)
[2022-10-02] MEDS: LEVOTHYROXINE NA 150 MCG TABLET PO SCH (06:38)
[2022-10-02] MEDS: LACTULOSE 20 GM/30 ML UDC (FOR ORAL USE ONLY) PO SCH ×4 (06:38→21:55)
[2022-10-02] MEDS: INSULIN SLIDING SCALE (NOVOLOG) 1 VIAL SQ SCH ×4 (06:38→21:56)
[2022-10-02 07:43] LABS: BASO % 1.1 % (0-2.0); EOS % 8.6 % (0-4.5); HEMATOCRIT 31.8 % (32.4-45.2); HEMOGLOBIN 10.2 GM/dL (10.7-15.3); LYMPH % 13.8 % (8-40); MCH 32.3 pg (25.7-33.7); MCHC 32.1 g/dl (32.0-36.0); MEAN CELL VOLUME 100.7 fl (80-96); MEAN PLT VOLUME 9.3 fl (7.5-11.1); MONO % 8.2 % (3.8-10.2); NEUT % 68.3 % (42.8-82.8); PLATELET COUNT 59 10^3/uL (134-434); RBC 3.16 M/mm3 (3.60-5.2); RDW 16.9 % (11.6-15.6); WHITE BLOOD COUNT 8.1 K/mm3 (4.0-10.0)
[2022-10-02 08:10] LABS: ALBUMIN 2.5 g/dl (3.4-5.0); BLOOD UREA NITROGEN 16.9 mg/dL (7-18); CALCIUM 8.3 mg/dL (8.5-10.1); MAGNESIUM 1.9 mg/dL (1.8-2.4)
[2022-10-02 08:14] LABS: BILIRUBIN,TOTAL 0.6 mg/dL (0.2-1); CREATININE 2.6 mg/dL (0.55-1.3); TOT PROT 6.3 g/dl (6.4-8.2)
[2022-10-02] MEDS: SEVELAMER CARBONATE 800 MG TAB (FP) PO SCH ×3 (09:50→16:48)
[2022-10-02] MEDS: FERROUS SO4 325 MG TABLET (FP) PO SCH (09:50)
[2022-10-02] MEDS: PANTOPRAZOLE 40 MG TABLET PO SCH (09:50)
[2022-10-02] MEDS: FUROSEMIDE 40 MG/4 ML INJECTABLE VIAL IVPUSH SCH (09:52)
[2022-10-02] MEDS: LIDOCAINE 5% TOPICAL PATCH TP SCH ×2 (09:53→10:05)
[2022-10-02] MEDS: NYSTATIN 100,000 UNIT/GM TOPICAL CREAM 15 GM TUBE TP SCH ×2 (09:53→21:57)
[2022-10-02] MEDS: HYDROmorphone HCL 2 MG TABLET PO PRN ×3 (10:24→22:04)
[2022-10-02] MEDS: WARFARIN NA 3 MG TABLET PO SCH (18:11)
[2022-10-02 20:03] LABS: INR 1.41 (0.83-1.09); PROTHROMBIN TIME (PATIENT) 16.3 SEC (9.7-13.0)
[2022-10-02] MEDS: ATORVASTATIN CA 80 MG TABLET (FP) PO SCH (21:56)
[2022-10-02] MEDS: LIDOCAINE PATCH REMOVAL MC SCH (21:56)
[2022-10-03] MEDS: HYDROmorphone HCL 2 MG TABLET PO PRN ×3 (04:12→21:18)
[2022-10-03] MEDS: INSULIN SLIDING SCALE (NOVOLOG) 1 VIAL SQ SCH ×4 (06:15→21:34)
[2022-10-03] MEDS: LACTULOSE 20 GM/30 ML UDC (FOR ORAL USE ONLY) PO SCH ×3 (06:15→21:18)
[2022-10-03] MEDS: LEVOTHYROXINE NA 150 MCG TABLET PO SCH (06:16)
[2022-10-03 07:24] LABS: INR 1.52 (0.83-1.09); PROTHROMBIN TIME (PATIENT) 17.5 SEC (9.7-13.0)
[2022-10-03 07:44] LABS: BASO % 0.5 % (0-2.0); EOS % 5.7 % (0-4.5); HEMATOCRIT 34.3 % (32.4-45.2); HEMOGLOBIN 10.9 GM/dL (10.7-15.3); LYMPH % 10.8 % (8-40); MCH 32.4 pg (25.7-33.7); MCHC 31.8 g/dl (32.0-36.0); MEAN CELL VOLUME 101.8 fl (80-96); MEAN PLT VOLUME 9.1 fl (7.5-11.1); MONO % 6.5 % (3.8-10.2); NEUT % 76.5 % (42.8-82.8); PLATELET COUNT 86 10^3/uL (134-434); RBC 3.37 M/mm3 (3.60-5.2); RDW 17.7 % (11.6-15.6); WHITE BLOOD COUNT 7.4 K/mm3 (4.0-10.0)
[2022-10-03 07:46] LABS: ALBUMIN 2.6 g/dl (3.4-5.0); CALCIUM 8.6 mg/dL (8.5-10.1)
[2022-10-03 07:48] LABS: BLOOD UREA NITROGEN 24.3 mg/dL (7-18); MAGNESIUM 2.2 mg/dL (1.8-2.4)
[2022-10-03 07:49] LABS: CREATININE 3.1 mg/dL (0.55-1.3); PHOSPHOROUS 3.6 mg/dL (2.5-4.9)
[2022-10-03 07:51] LABS: BILIRUBIN,TOTAL 0.6 mg/dL (0.2-1); TOT PROT 6.8 g/dl (6.4-8.2)
[2022-10-03] MEDS ORDERED: POTASSIUM CHLORIDE TABS 20 MEQ TABLET.ER (FP) PO ONE (07:55)
[2022-10-03] MEDS: SEVELAMER CARBONATE 800 MG TAB (FP) PO SCH ×3 (09:49→17:08)
[2022-10-03] MEDS: PANTOPRAZOLE 40 MG TABLET PO SCH (09:49)
[2022-10-03] MEDS: FERROUS SO4 325 MG TABLET (FP) PO SCH (09:49)
[2022-10-03] MEDS: FUROSEMIDE 40 MG/4 ML INJECTABLE VIAL IVPUSH SCH (09:50)
[2022-10-03] MEDS: LIDOCAINE 5% TOPICAL PATCH TP SCH (09:50)
[2022-10-03] MEDS: NYSTATIN 100,000 UNIT/GM TOPICAL CREAM 15 GM TUBE TP SCH ×2 (09:52→21:37)
[2022-10-03] MEDS: WARFARIN NA 5 MG TABLET PO SCH (17:08)
[2022-10-03] MEDS: ATORVASTATIN CA 80 MG TABLET (FP) PO SCH (21:17)
[2022-10-03] MEDS: LIDOCAINE PATCH REMOVAL MC SCH (21:37)
[2022-10-04] MEDS: HYDROmorphone HCL 2 MG TABLET PO PRN ×3 (05:13→23:32)
[2022-10-04] MEDS: LACTULOSE 20 GM/30 ML UDC (FOR ORAL USE ONLY) PO SCH ×4 (05:15→23:24)
[2022-10-04] MEDS: INSULIN SLIDING SCALE (NOVOLOG) 1 VIAL SQ SCH ×4 (06:37→22:54)
[2022-10-04] MEDS: LEVOTHYROXINE NA 150 MCG TABLET PO SCH (06:48)
[2022-10-04] MEDS: SEVELAMER CARBONATE 800 MG TAB (FP) PO SCH ×3 (10:21→17:29)
[2022-10-04] MEDS: FERROUS SO4 325 MG TABLET (FP) PO SCH (10:21)
[2022-10-04] MEDS: PANTOPRAZOLE 40 MG TABLET PO SCH (10:21)
[2022-10-04] MEDS: LIDOCAINE 5% TOPICAL PATCH TP SCH (10:22)
[2022-10-04] MEDS: FUROSEMIDE 40 MG/4 ML INJECTABLE VIAL IVPUSH SCH (10:29)
[2022-10-04 11:15] LABS: BASO % 0.3 % (0-2.0); EOS % 5.6 % (0-4.5); HEMATOCRIT 37.2 % (32.4-45.2); HEMOGLOBIN 11.8 GM/dL (10.7-15.3); LYMPH % 15.3 % (8-40); MCH 31.8 pg (25.7-33.7); MCHC 31.8 g/dl (32.0-36.0); MEAN CELL VOLUME 99.8 fl (80-96); MEAN PLT VOLUME 9.2 fl (7.5-11.1); MONO % 7.3 % (3.8-10.2); NEUT % 71.5 % (42.8-82.8); PLATELET COUNT 106 10^3/uL (134-434); RBC 3.73 M/mm3 (3.60-5.2); RDW 17.6 % (11.6-15.6); WHITE BLOOD COUNT 6.2 K/mm3 (4.0-10.0)
[2022-10-04 11:21] LABS: INR 2.77 (0.83-1.09); PROTHROMBIN TIME (PATIENT) 32.2 SEC (9.7-13.0)
[2022-10-04 11:24] LABS: CALCIUM 8.2 mg/dL (8.5-10.1)
[2022-10-04 11:25] LABS: ALBUMIN 2.2 g/dl (3.4-5.0); BLOOD UREA NITROGEN 28.6 mg/dL (7-18); MAGNESIUM 2.2 mg/dL (1.8-2.4)
[2022-10-04 11:29] LABS: CREATININE 3.1 mg/dL (0.55-1.3); PHOSPHOROUS 3.4 mg/dL (2.5-4.9)
[2022-10-04 11:31] LABS: BILIRUBIN,TOTAL 0.4 mg/dL (0.2-1); TOT PROT 5.9 g/dl (6.4-8.2)
[2022-10-04] MEDS ORDERED: hydrOXYzine HCL 10 MG/5 ML LIQUID BULK BOTTLE PO PRN (11:44)
[2022-10-04] MEDS ORDERED: POTASSIUM CHLORIDE TABS 20 MEQ TABLET.ER (FP) PO ONE (12:45)
[2022-10-04] MEDS: NYSTATIN 100,000 UNIT/GM TOPICAL CREAM 15 GM TUBE TP SCH ×2 (13:05→21:50)
[2022-10-04] MEDS: WARFARIN NA 5 MG TABLET PO SCH (17:29)
[2022-10-04] MEDS: ATORVASTATIN CA 80 MG TABLET (FP) PO SCH (21:50)
[2022-10-04] MEDS: LIDOCAINE PATCH REMOVAL MC SCH (21:53)
[2022-10-05] MEDS: LACTULOSE 20 GM/30 ML UDC (FOR ORAL USE ONLY) PO SCH ×3 (06:02→21:12)
[2022-10-05] MEDS: LEVOTHYROXINE NA 150 MCG TABLET PO SCH (06:02)
[2022-10-05] MEDS: INSULIN SLIDING SCALE (NOVOLOG) 1 VIAL SQ SCH ×4 (06:13→21:12)
[2022-10-05] MEDS: PANTOPRAZOLE 40 MG TABLET PO SCH (09:20)
[2022-10-05] MEDS: FERROUS SO4 325 MG TABLET (FP) PO SCH (09:20)
[2022-10-05] MEDS: FUROSEMIDE 40 MG/4 ML INJECTABLE VIAL IVPUSH SCH (09:20)
[2022-10-05] MEDS: SEVELAMER CARBONATE 800 MG TAB (FP) PO SCH ×3 (09:20→18:09)
[2022-10-05] MEDS: NYSTATIN 100,000 UNIT/GM TOPICAL CREAM 15 GM TUBE TP SCH ×2 (09:21→21:12)
[2022-10-05] MEDS: LIDOCAINE 5% TOPICAL PATCH TP SCH (09:21)
[2022-10-05 11:33] LABS: BASO % 0.7 % (0-2.0); EOS % 4.8 % (0-4.5); HEMATOCRIT 38.6 % (32.4-45.2); HEMOGLOBIN 12.2 GM/dL (10.7-15.3); LYMPH % 12.9 % (8-40); MCH 31.5 pg (25.7-33.7); MCHC 31.5 g/dl (32.0-36.0); MEAN CELL VOLUME 99.9 fl (80-96); MEAN PLT VOLUME 9.1 fl (7.5-11.1); MONO % 8.1 % (3.8-10.2); NEUT % 73.5 % (42.8-82.8); PLATELET COUNT 122 10^3/uL (134-434); RBC 3.87 M/mm3 (3.60-5.2); RDW 17.6 % (11.6-15.6); WHITE BLOOD COUNT 8.2 K/mm3 (4.0-10.0)
[2022-10-05 11:38] LABS: INR 3.96 (0.83-1.09); PROTHROMBIN TIME (PATIENT) 46.2 SEC (9.7-13.0)
[2022-10-05] MEDS: HYDROmorphone HCL 2 MG TABLET PO PRN (11:50)
[2022-10-05 12:24] LABS: CALCIUM 8.3 mg/dL (8.5-10.1); MAGNESIUM 2.4 mg/dL (1.8-2.4)
[2022-10-05 12:26] LABS: BLOOD UREA NITROGEN 31.6 mg/dL (7-18)
[2022-10-05 12:27] LABS: ALBUMIN 2.5 g/dl (3.4-5.0); CREATININE 2.7 mg/dL (0.55-1.3)
[2022-10-05 12:29] LABS: BILIRUBIN,TOTAL 0.5 mg/dL (0.2-1); TOT PROT 6.7 g/dl (6.4-8.2)
[2022-10-05] MEDS: FUROSEMIDE 40 MG TABLET (FP) PO SCH (14:12)
[2022-10-05] MEDS: WARFARIN NA 5 MG TABLET PO SCH (18:09)
[2022-10-05] MEDS: LIDOCAINE PATCH REMOVAL MC SCH (21:12)
[2022-10-05] MEDS: ATORVASTATIN CA 80 MG TABLET (FP) PO SCH (21:12)
[2022-10-06] MEDS: LACTULOSE 20 GM/30 ML UDC (FOR ORAL USE ONLY) PO SCH ×3 (06:25→21:22)
[2022-10-06] MEDS: FUROSEMIDE 40 MG TABLET (FP) PO SCH ×2 (06:25→13:13)
[2022-10-06] MEDS: LEVOTHYROXINE NA 150 MCG TABLET PO SCH (06:25)
[2022-10-06] MEDS: INSULIN SLIDING SCALE (NOVOLOG) 1 VIAL SQ SCH ×3 (06:30→21:20)
[2022-10-06] MEDS: SEVELAMER CARBONATE 800 MG TAB (FP) PO SCH ×3 (08:49→16:32)
[2022-10-06] MEDS: LIDOCAINE 5% TOPICAL PATCH TP SCH (09:51)
[2022-10-06] MEDS: FERROUS SO4 325 MG TABLET (FP) PO SCH (09:51)
[2022-10-06] MEDS: NYSTATIN 100,000 UNIT/GM TOPICAL CREAM 15 GM TUBE TP SCH ×2 (09:51→21:25)
[2022-10-06] MEDS: PANTOPRAZOLE 40 MG TABLET PO SCH (09:51)
[2022-10-06 11:44] LABS: BASO % 0.6 % (0-2.0); EOS % 5.6 % (0-4.5); HEMATOCRIT 34.4 % (32.4-45.2); HEMOGLOBIN 11.2 GM/dL (10.7-15.3); LYMPH % 9.5 % (8-40); MCH 32.4 pg (25.7-33.7); MCHC 32.6 g/dl (32.0-36.0); MEAN CELL VOLUME 99.3 fl (80-96); MONO % 7.6 % (3.8-10.2); NEUT % 76.7 % (42.8-82.8); PLATELET COUNT 126 10^3/uL (134-434); RBC 3.46 M/mm3 (3.60-5.2); RDW 17.3 % (11.6-15.6); WHITE BLOOD COUNT 6.6 K/mm3 (4.0-10.0)
[2022-10-06 11:46] LABS: PROTHROMBIN TIME (PATIENT) 58.1 SEC (9.7-13.0)
[2022-10-06 12:01] LABS: INR 4.97 (0.83-1.09)
[2022-10-06 12:24] LABS: ALBUMIN 2.5 g/dl (3.4-5.0); CALCIUM 8.5 mg/dL (8.5-10.1)
[2022-10-06 12:25] LABS: MAGNESIUM 2.2 mg/dL (1.8-2.4)
[2022-10-06 12:27] LABS: CREATININE 2.3 mg/dL (0.55-1.3)
[2022-10-06 12:28] LABS: BLOOD UREA NITROGEN 32.4 mg/dL (7-18); PHOSPHOROUS 2.4 mg/dL (2.5-4.9)
[2022-10-06 12:30] LABS: BILIRUBIN,TOTAL 0.7 mg/dL (0.2-1)
[2022-10-06 12:33] LABS: TOT PROT 6.4 g/dl (6.4-8.2)
[2022-10-06] MEDS ORDERED: POTASSIUM CHLORIDE TABS 20 MEQ TABLET.ER (FP) PO ONE (13:00)
[2022-10-06] MEDS ORDERED: hydrALAZINE HCL 10 MG TABLET PO ONE (15:34)
[2022-10-06] MEDS ORDERED: INSULIN SLIDING SCALE (NOVOLOG) 1 VIAL SQ SCH (15:36)
[2022-10-06] MEDS: INSULIN (LEVEMIR) 100 UNITS/ML UNITS SQ SCH (21:21)
[2022-10-06] MEDS: ATORVASTATIN CA 80 MG TABLET (FP) PO SCH (21:22)
[2022-10-06] MEDS: LIDOCAINE PATCH REMOVAL MC SCH (21:24)
[2022-10-06] MEDS ORDERED: hydrALAZINE HCL 10 MG TABLET PO SCH (22:00)
[2022-10-07] MEDS: LACTULOSE 20 GM/30 ML UDC (FOR ORAL USE ONLY) PO SCH ×3 (06:17→22:32)
[2022-10-07] MEDS: FUROSEMIDE 40 MG TABLET (FP) PO SCH ×2 (06:17→13:33)
[2022-10-07] MEDS: LEVOTHYROXINE NA 150 MCG TABLET PO SCH (06:17)
[2022-10-07] MEDS: INSULIN SLIDING SCALE (NOVOLOG) 1 VIAL SQ SCH ×4 (06:21→22:44)
[2022-10-07] MEDS: SEVELAMER CARBONATE 800 MG TAB (FP) PO SCH (08:59)
[2022-10-07] MEDS ORDERED: hydrALAZINE HCL 10 MG TABLET PO SCH (09:15)
[2022-10-07 10:30] LABS: BASO % 0.9 % (0-2.0); EOS % 6.2 % (0-4.5); HEMATOCRIT 36.6 % (32.4-45.2); HEMOGLOBIN 11.9 GM/dL (10.7-15.3); LYMPH % 15.7 % (8-40); MCH 32.1 pg (25.7-33.7); MCHC 32.4 g/dl (32.0-36.0); MEAN CELL VOLUME 98.9 fl (80-96); MEAN PLT VOLUME 8.6 fl (7.5-11.1); NEUT % 70.2 % (42.8-82.8); PLATELET COUNT 154 10^3/uL (134-434); RBC 3.71 M/mm3 (3.60-5.2); RDW 17.7 % (11.6-15.6); WHITE BLOOD COUNT 6.6 K/mm3 (4.0-10.0)
[2022-10-07] MEDS: PANTOPRAZOLE 40 MG TABLET PO SCH (10:31)
[2022-10-07] MEDS: FERROUS SO4 325 MG TABLET (FP) PO SCH (10:31)
[2022-10-07] MEDS: LIDOCAINE 5% TOPICAL PATCH TP SCH (10:31)
[2022-10-07] MEDS: NYSTATIN 100,000 UNIT/GM TOPICAL CREAM 15 GM TUBE TP SCH ×2 (10:32→22:33)
[2022-10-07 10:37] LABS: PROTHROMBIN TIME (PATIENT) 47.4 SEC (9.7-13.0)
[2022-10-07 10:51] LABS: ALBUMIN 2.7 g/dl (3.4-5.0); BLOOD UREA NITROGEN 32.8 mg/dL (7-18); CALCIUM 8.7 mg/dL (8.5-10.1); MAGNESIUM 2.2 mg/dL (1.8-2.4)
[2022-10-07 10:54] LABS: PHOSPHOROUS 2.4 mg/dL (2.5-4.9)
[2022-10-07 10:56] LABS: BILIRUBIN,TOTAL 0.7 mg/dL (0.2-1)
[2022-10-07 11:16] LABS: INR 4.06 (0.83-1.09)
[2022-10-07] MEDS ORDERED: NAPH,MB-DB/K PH,MBDB POWDER PACKET PO ONE ×2 (11:31→13:00)
[2022-10-07] MEDS: HYDROmorphone HCL 2 MG TABLET PO PRN (11:52)
[2022-10-07] MEDS: hydrALAZINE HCL 10 MG TABLET PO SCH ×2 (13:30→22:32)
[2022-10-07] MEDS: diphenhydrAMINE HCL 25 MG CAPSULE (FP) PO PRN (18:27)
[2022-10-07] MEDS: ATORVASTATIN CA 80 MG TABLET (FP) PO SCH (22:32)
[2022-10-07] MEDS: LIDOCAINE PATCH REMOVAL MC SCH (22:43)
[2022-10-07] MEDS: INSULIN (LEVEMIR) 100 UNITS/ML UNITS SQ SCH (22:45)
[2022-10-08] MEDS: HYDROmorphone HCL 2 MG TABLET PO PRN ×4 (00:41→22:02)
[2022-10-08] MEDS: LEVOTHYROXINE NA 150 MCG TABLET PO SCH (06:34)
[2022-10-08] MEDS: FUROSEMIDE 40 MG TABLET (FP) PO SCH ×2 (06:34→13:28)
[2022-10-08] MEDS: hydrALAZINE HCL 10 MG TABLET PO SCH ×3 (06:34→21:41)
[2022-10-08] MEDS: INSULIN SLIDING SCALE (NOVOLOG) 1 VIAL SQ SCH ×4 (06:35→21:54)
[2022-10-08] MEDS: LACTULOSE 20 GM/30 ML UDC (FOR ORAL USE ONLY) PO SCH ×3 (06:35→21:41)
[2022-10-08] MEDS: PANTOPRAZOLE 40 MG TABLET PO SCH (10:19)
[2022-10-08] MEDS: FERROUS SO4 325 MG TABLET (FP) PO SCH (10:19)
[2022-10-08] MEDS: NYSTATIN 100,000 UNIT/GM TOPICAL CREAM 15 GM TUBE TP SCH ×2 (10:19→22:16)
[2022-10-08] MEDS: LIDOCAINE 5% TOPICAL PATCH TP SCH (10:19)
[2022-10-08 13:02] LABS: INR 2.84 (0.83-1.09)
[2022-10-08 13:17] LABS: CALCIUM 8.5 mg/dL (8.5-10.1)
[2022-10-08 13:18] LABS: ALBUMIN 2.6 g/dl (3.4-5.0); BLOOD UREA NITROGEN 35.5 mg/dL (7-18)
[2022-10-08 13:21] LABS: CREATININE 1.9 mg/dL (0.55-1.3)
[2022-10-08 13:22] LABS: TOT PROT 6.6 g/dl (6.4-8.2)
[2022-10-08 13:23] LABS: BILIRUBIN,TOTAL 0.6 mg/dL (0.2-1)
[2022-10-08 13:41] LABS: BASO % 1.4 % (0-2.0); EOS % 5.7 % (0-4.5); HEMATOCRIT 36.6 % (32.4-45.2); HEMOGLOBIN 11.4 GM/dL (10.7-15.3); LYMPH % 22.4 % (8-40); MCH 31.4 pg (25.7-33.7); MCHC 31.3 g/dl (32.0-36.0); MEAN CELL VOLUME 100.3 fl (80-96); MEAN PLT VOLUME 9.3 fl (7.5-11.1); MONO % 7.9 % (3.8-10.2); NEUT % 62.6 % (42.8-82.8); PLATELET COUNT 187 10^3/uL (134-434); RBC 3.65 M/mm3 (3.60-5.2); WHITE BLOOD COUNT 5.8 K/mm3 (4.0-10.0)
[2022-10-08] MEDS ORDERED: ALBUTEROL SO4 2.5/IPRATROPIUM 0.5 INH SOL 3 ML VIAL.NEB. NEB ONE (15:02)
[2022-10-08] MEDS ORDERED: ALBUTEROL SO4 2.5/IPRATROPIUM 0.5 INH SOL 3 ML VIAL.NEB. NEB PRN (15:03)
[2022-10-08] MEDS: WARFARIN NA 5 MG TABLET PO SCH ×2 (17:56→18:09)
[2022-10-08] MEDS: ATORVASTATIN CA 80 MG TABLET (FP) PO SCH (21:41)
[2022-10-08] MEDS: diphenhydrAMINE HCL 25 MG CAPSULE (FP) PO PRN (21:41)
[2022-10-08] MEDS: INSULIN (LEVEMIR) 100 UNITS/ML UNITS SQ SCH (21:42)
[2022-10-08] MEDS: LIDOCAINE PATCH REMOVAL MC SCH (22:16)
[2022-10-09] MEDS: INSULIN SLIDING SCALE (NOVOLOG) 1 VIAL SQ SCH ×4 (06:14→21:34)
[2022-10-09] MEDS: hydrALAZINE HCL 10 MG TABLET PO SCH (06:15)
[2022-10-09] MEDS: LACTULOSE 20 GM/30 ML UDC (FOR ORAL USE ONLY) PO SCH ×3 (06:15→21:32)
[2022-10-09] MEDS: LEVOTHYROXINE NA 150 MCG TABLET PO SCH (06:15)
[2022-10-09] MEDS: HYDROmorphone HCL 2 MG TABLET PO PRN ×3 (07:10→22:10)
[2022-10-09] MEDS ORDERED: hydrALAZINE HCL 10 MG TABLET PO SCH ×2 (08:53→11:08)
[2022-10-09] MEDS: FUROSEMIDE 40 MG TABLET (FP) PO SCH (09:54)
[2022-10-09] MEDS: PANTOPRAZOLE 40 MG TABLET PO SCH (09:54)
[2022-10-09] MEDS: FERROUS SO4 325 MG TABLET (FP) PO SCH (09:54)
[2022-10-09] MEDS: LIDOCAINE 5% TOPICAL PATCH TP SCH (10:22)
[2022-10-09] MEDS: NYSTATIN 100,000 UNIT/GM TOPICAL CREAM 15 GM TUBE TP SCH ×2 (10:22→21:37)
[2022-10-09 10:38] LABS: BASO % 1.3 % (0-2.0); EOS % 8.3 % (0-4.5); HEMATOCRIT 35.5 % (32.4-45.2); HEMOGLOBIN 11.2 GM/dL (10.7-15.3); LYMPH % 18.5 % (8-40); MCH 31.5 pg (25.7-33.7); MCHC 31.5 g/dl (32.0-36.0); MEAN CELL VOLUME 99.9 fl (80-96); MEAN PLT VOLUME 8.8 fl (7.5-11.1); MONO % 7.1 % (3.8-10.2); NEUT % 64.8 % (42.8-82.8); PLATELET COUNT 209 10^3/uL (134-434); RBC 3.55 M/mm3 (3.60-5.2); RDW 17.7 % (11.6-15.6); WHITE BLOOD COUNT 5.6 K/mm3 (4.0-10.0)
[2022-10-09 10:45] LABS: INR 3.1 (0.83-1.09); PROTHROMBIN TIME (PATIENT) 36.1 SEC (9.7-13.0)
[2022-10-09 11:07] LABS: ALBUMIN 2.6 g/dl (3.4-5.0); BLOOD UREA NITROGEN 36.5 mg/dL (7-18); CALCIUM 8.5 mg/dL (8.5-10.1); MAGNESIUM 2.1 mg/dL (1.8-2.4)
[2022-10-09 11:10] LABS: CREATININE 1.7 mg/dL (0.55-1.3)
[2022-10-09 11:11] LABS: TOT PROT 6.6 g/dl (6.4-8.2)
[2022-10-09 11:13] LABS: BILIRUBIN,TOTAL 0.5 mg/dL (0.2-1)
[2022-10-09] MEDS ORDERED: amLODIPine BESYLATE 5 MG TABLET (FP) PO ONE ×2 (12:45→18:30)
[2022-10-09] MEDS ORDERED: HYDROmorphone HCL 2 MG TABLET PO ONE (15:07)
[2022-10-09] MEDS: ATORVASTATIN CA 80 MG TABLET (FP) PO SCH (21:32)
[2022-10-09] MEDS: INSULIN (LEVEMIR) 100 UNITS/ML UNITS SQ SCH (21:32)
[2022-10-09] MEDS: LIDOCAINE PATCH REMOVAL MC SCH (21:36)
[2022-10-10] MEDS: LACTULOSE 20 GM/30 ML UDC (FOR ORAL USE ONLY) PO SCH ×4 (06:03→21:34)
[2022-10-10] MEDS: HYDROmorphone HCL 2 MG TABLET PO PRN ×4 (06:04→18:11)
[2022-10-10] MEDS: LEVOTHYROXINE NA 150 MCG TABLET PO SCH (06:04)
[2022-10-10] MEDS: INSULIN SLIDING SCALE (NOVOLOG) 1 VIAL SQ SCH ×4 (06:14→21:28)
[2022-10-10 09:50] LABS: BASO % 0.9 % (0-2.0); EOS % 8.4 % (0-4.5); HEMATOCRIT 36.8 % (32.4-45.2); HEMOGLOBIN 11.6 GM/dL (10.7-15.3); LYMPH % 19.3 % (8-40); MCH 31.5 pg (25.7-33.7); MCHC 31.4 g/dl (32.0-36.0); MEAN CELL VOLUME 100.2 fl (80-96); MEAN PLT VOLUME 8.7 fl (7.5-11.1); MONO % 5.8 % (3.8-10.2); NEUT % 65.6 % (42.8-82.8); PLATELET COUNT 237 10^3/uL (134-434); RBC 3.67 M/mm3 (3.60-5.2); RDW 17.6 % (11.6-15.6); WHITE BLOOD COUNT 6.2 K/mm3 (4.0-10.0)
[2022-10-10 09:55] LABS: INR 3.05 (0.83-1.09); PROTHROMBIN TIME (PATIENT) 35.5 SEC (9.7-13.0)
[2022-10-10 10:09] LABS: ALBUMIN 2.6 g/dl (3.4-5.0); BLOOD UREA NITROGEN 39.8 mg/dL (7-18); CALCIUM 8.9 mg/dL (8.5-10.1)
[2022-10-10 10:12] LABS: CREATININE 1.8 mg/dL (0.55-1.3)
[2022-10-10 10:14] LABS: BILIRUBIN,TOTAL 0.4 mg/dL (0.2-1)
[2022-10-10] MEDS: FUROSEMIDE 40 MG TABLET (FP) PO SCH (10:30)
[2022-10-10] MEDS: PANTOPRAZOLE 40 MG TABLET PO SCH (10:30)
[2022-10-10] MEDS: amLODIPine BESYLATE 10 MG TABLET (FP) PO SCH (10:30)
[2022-10-10] MEDS: LIDOCAINE 5% TOPICAL PATCH TP SCH (10:30)
[2022-10-10] MEDS: FERROUS SO4 325 MG TABLET (FP) PO SCH (10:30)
[2022-10-10] MEDS: NYSTATIN 100,000 UNIT/GM TOPICAL CREAM 15 GM TUBE TP SCH ×2 (10:31→21:26)
[2022-10-10] MEDS ORDERED: WARFARIN NA 2 MG TABLET PO SCH (12:23)
[2022-10-10] MEDS: INSULIN (LEVEMIR) 100 UNITS/ML UNITS SQ SCH (21:26)
[2022-10-10] MEDS: LIDOCAINE PATCH REMOVAL MC SCH (21:27)
[2022-10-11] MEDS: HYDROmorphone HCL 2 MG TABLET PO PRN ×2 (03:27→09:43)
[2022-10-11] MEDS: LEVOTHYROXINE NA 150 MCG TABLET PO SCH (06:05)
[2022-10-11] MEDS: LACTULOSE 20 GM/30 ML UDC (FOR ORAL USE ONLY) PO SCH ×3 (06:05→22:16)
[2022-10-11] MEDS: INSULIN SLIDING SCALE (NOVOLOG) 1 VIAL SQ SCH ×4 (06:45→22:15)
[2022-10-11] MEDS: LIDOCAINE 5% TOPICAL PATCH TP SCH (09:43)
[2022-10-11] MEDS: FUROSEMIDE 40 MG TABLET (FP) PO SCH (09:44)
[2022-10-11] MEDS: FERROUS SO4 325 MG TABLET (FP) PO SCH (09:44)
[2022-10-11] MEDS: diphenhydrAMINE HCL 25 MG CAPSULE (FP) PO PRN ×2 (09:44→22:16)
[2022-10-11] MEDS: amLODIPine BESYLATE 10 MG TABLET (FP) PO SCH (09:44)
[2022-10-11] MEDS: NYSTATIN 100,000 UNIT/GM TOPICAL CREAM 15 GM TUBE TP SCH ×2 (09:44→22:16)
[2022-10-11] MEDS: PANTOPRAZOLE 40 MG TABLET PO SCH (09:44)
[2022-10-11 11:53] LABS: BASO % 2.6 % (0-2.0); EOS % 8.8 % (0-4.5); HEMATOCRIT 34.9 % (32.4-45.2); HEMOGLOBIN 11.2 GM/dL (10.7-15.3); INR 2.41 (0.83-1.09); MCH 31.9 pg (25.7-33.7); MEAN CELL VOLUME 99.7 fl (80-96); MEAN PLT VOLUME 9.2 fl (7.5-11.1); NEUT % 66.6 % (42.8-82.8); PLATELET COUNT 266 10^3/uL (134-434); RDW 17.2 % (11.6-15.6); WHITE BLOOD COUNT 6.4 K/mm3 (4.0-10.0)
[2022-10-11 12:29] LABS: ALBUMIN 2.7 g/dl (3.4-5.0)
[2022-10-11 12:30] LABS: MAGNESIUM 2.2 mg/dL (1.8-2.4)
[2022-10-11 12:31] LABS: BILIRUBIN,TOTAL 0.4 mg/dL (0.2-1); BLOOD UREA NITROGEN 41.4 mg/dL (7-18); CREATININE 1.6 mg/dL (0.55-1.3)
[2022-10-11] MEDS ORDERED: WARFARIN NA 2 MG TABLET PO ONE (18:00)
[2022-10-11] MEDS: INSULIN (LEVEMIR) 100 UNITS/ML UNITS SQ SCH (22:14)
[2022-10-11] MEDS: ATORVASTATIN CA 80 MG TABLET (FP) PO SCH (22:15)
[2022-10-11] MEDS: LIDOCAINE PATCH REMOVAL MC SCH (22:15)
[2022-10-12] MEDS: INSULIN SLIDING SCALE (NOVOLOG) 1 VIAL SQ SCH ×4 (06:41→22:01)
[2022-10-12] MEDS: LEVOTHYROXINE NA 150 MCG TABLET PO SCH (06:42)
[2022-10-12] MEDS: LACTULOSE 20 GM/30 ML UDC (FOR ORAL USE ONLY) PO SCH ×3 (06:44→22:00)
[2022-10-12] MEDS: PANTOPRAZOLE 40 MG TABLET PO SCH (11:37)
[2022-10-12] MEDS: FERROUS SO4 325 MG TABLET (FP) PO SCH (11:37)
[2022-10-12] MEDS: LIDOCAINE 5% TOPICAL PATCH TP SCH (11:37)
[2022-10-12] MEDS: amLODIPine BESYLATE 10 MG TABLET (FP) PO SCH (11:37)
[2022-10-12] MEDS: NYSTATIN 100,000 UNIT/GM TOPICAL CREAM 15 GM TUBE TP SCH ×2 (11:37→22:11)
[2022-10-12] MEDS: FUROSEMIDE 40 MG TABLET (FP) PO SCH (11:37)
[2022-10-12 12:44] LABS: BASO % 2.1 % (0-2.0); EOS % 9.6 % (0-4.5); HEMATOCRIT 37.1 % (32.4-45.2); HEMOGLOBIN 11.7 GM/dL (10.7-15.3); LYMPH % 15.6 % (8-40); MCH 31.4 pg (25.7-33.7); MCHC 31.4 g/dl (32.0-36.0); MEAN PLT VOLUME 9.5 fl (7.5-11.1); MONO % 5.7 % (3.8-10.2); PLATELET COUNT 280 10^3/uL (134-434); RBC 3.71 M/mm3 (3.60-5.2); RDW 17.6 % (11.6-15.6); WHITE BLOOD COUNT 7.1 K/mm3 (4.0-10.0)
[2022-10-12 12:51] LABS: INR 2.28 (0.83-1.09); PROTHROMBIN TIME (PATIENT) 26.4 SEC (9.7-13.0)
[2022-10-12 13:38] LABS: ALBUMIN 2.8 g/dl (3.4-5.0)
[2022-10-12 13:39] LABS: BLOOD UREA NITROGEN 44.9 mg/dL (7-18); MAGNESIUM 2.2 mg/dL (1.8-2.4)
[2022-10-12 13:41] LABS: CREATININE 1.7 mg/dL (0.55-1.3)
[2022-10-12 13:42] LABS: PHOSPHOROUS 2.9 mg/dL (2.5-4.9)
[2022-10-12 13:43] LABS: BILIRUBIN,TOTAL 0.8 mg/dL (0.2-1); CALCIUM 9.4 mg/dL (8.5-10.1); TOT PROT 7.4 g/dl (6.4-8.2)
[2022-10-12] MEDS ORDERED: WARFARIN NA 2 MG TABLET PO SCH (18:00)
[2022-10-12] MEDS: diphenhydrAMINE HCL 25 MG CAPSULE (FP) PO PRN (18:13)
[2022-10-12] MEDS: HYDROmorphone HCL 2 MG TABLET PO PRN (20:24)
[2022-10-12] MEDS: INSULIN (LEVEMIR) 100 UNITS/ML UNITS SQ SCH (22:01)
[2022-10-12] MEDS: ATORVASTATIN CA 80 MG TABLET (FP) PO SCH (22:02)
[2022-10-12] MEDS: LIDOCAINE PATCH REMOVAL MC SCH (22:10)
[2022-10-13] MEDS: diphenhydrAMINE HCL 25 MG CAPSULE (FP) PO PRN (03:12)
[2022-10-13] MEDS: HYDROmorphone HCL 2 MG TABLET PO PRN ×2 (04:39→14:08)
[2022-10-13] MEDS: INSULIN SLIDING SCALE (NOVOLOG) 1 VIAL SQ SCH ×3 (06:25→16:39)
[2022-10-13] MEDS: LEVOTHYROXINE NA 150 MCG TABLET PO SCH (06:25)
[2022-10-13] MEDS: LACTULOSE 20 GM/30 ML UDC (FOR ORAL USE ONLY) PO SCH ×2 (06:29→14:06)
[2022-10-13] MEDS: LIDOCAINE 5% TOPICAL PATCH TP SCH (10:56)
[2022-10-13] MEDS: FERROUS SO4 325 MG TABLET (FP) PO SCH (10:57)
[2022-10-13] MEDS: PANTOPRAZOLE 40 MG TABLET PO SCH (10:57)
[2022-10-13] MEDS: amLODIPine BESYLATE 10 MG TABLET (FP) PO SCH (10:57)
[2022-10-13] MEDS: FUROSEMIDE 40 MG TABLET (FP) PO SCH (10:57)
[2022-10-13] MEDS: NYSTATIN 100,000 UNIT/GM TOPICAL CREAM 15 GM TUBE TP SCH (10:58)
[2022-10-13 11:32] LABS: INR 2.28 (0.83-1.09); PROTHROMBIN TIME (PATIENT) 26.4 SEC (9.7-13.0)
[2022-10-13 11:35] LABS: ACTIVATED PTT 40.8 SECONDS (25.2-36.5)
[2022-10-13 11:38] LABS: HEMATOCRIT 38.6 % (32.4-45.2); HEMOGLOBIN 12.2 GM/dL (10.7-15.3); MCH 31.4 pg (25.7-33.7); MCHC 31.6 g/dl (32.0-36.0); MEAN CELL VOLUME 99.6 fl (80-96); MEAN PLT VOLUME 9.7 fl (7.5-11.1); PLATELET COUNT 289 10^3/uL (134-434); RBC 3.88 M/mm3 (3.60-5.2); RDW 17.3 % (11.6-15.6); WHITE BLOOD COUNT 7.2 K/mm3 (4.0-10.0)
[2022-10-13 12:02] LABS: CALCIUM 9.5 mg/dL (8.5-10.1)
[2022-10-13 12:03] LABS: MAGNESIUM 2.5 mg/dL (1.8-2.4)
[2022-10-13 12:06] LABS: CREATININE 1.5 mg/dL (0.55-1.3); PHOSPHOROUS 2.9 mg/dL (2.5-4.9)
[2022-10-13 12:07] LABS: TOT PROT 7.8 g/dl (6.4-8.2)
[2022-10-13 12:08] LABS: BILIRUBIN,TOTAL 0.6 mg/dL (0.2-1)
[2022-10-13 12:12] LABS: ANISOCYTOSIS 0; MACROCYTOSIS 0
[2022-10-13 12:28] VITALS: BP 138/63; PULSE 61; RESP 17; TEMP 97.6
== END 2022-10-13 16:37 | DRG 871 ==
LOC: JER 21:44 → JERBED 09-22 01:01 → J4W 09-22 20:45 → JERBED 09-24 21:18 → J4W 09-24 21:20 → J5S 10-03 16:22
PROVIDERS: ADMIT Family Medicine; ATTEND Nurse Practitioner Acute Care
PROC: 5A1D70Z Performance of Urinary Filtration, Intermittent, Less than 6 Hours Per Day (ICD-10-PCS; 2022-09-30)
PROC: 0DJ08ZZ Inspection of Upper Intestinal Tract, Via Natural or Artificial Opening Endoscopic (ICD-10-PCS; principal; 2022-10-01 08:30)
DX: A41.9 Sepsis, unspecified organism (principal); I50.33 Acute on chronic diastolic (congestive) heart failure; N18.6 End stage renal disease; E87.20 Acidosis, unspecified; I48.92 Unspecified atrial flutter; N17.9 Acute kidney failure, unspecified; N39.0 Urinary tract infection, site not specified; I13.2 Hypertensive heart and chronic kidney disease with heart failure and with stage 5 chronic kidney disease, or end stage renal disease; R18.8 Other ascites; I24.8 Other forms of acute ischemic heart disease; K76.6 Portal hypertension; E03.9 Hypothyroidism, unspecified; E78.5 Hyperlipidemia, unspecified; M79.7 Fibromyalgia; M81.0 Age-related osteoporosis without current pathological fracture; D64.9 Anemia, unspecified; E11.22 Type 2 diabetes mellitus with diabetic chronic kidney disease; Z95.0 Presence of cardiac pacemaker; J44.9 Chronic obstructive pulmonary disease, unspecified; K74.60 Unspecified cirrhosis of liver; R31.9 Hematuria, unspecified; I86.4 Gastric varices; Z99.2 Dependence on renal dialysis; K20.80 Other esophagitis without bleeding; K31.89 Other diseases of stomach and duodenum; Z79.4 Long term (current) use of insulin; Z87.891 Personal history of nicotine dependence; E66.9 Obesity, unspecified; Z68.35 Body mass index [BMI] 35.0-35.9, adult
CPT/HCPCS: 0241U-QW; 36415; 36430; 70450-TC; 71045-TC-FY; 74176-TC; 76700-TC; 80048; 80053; 80061; 80076; 81003; 82105; 82140; 82550; 82553; 82607; 82728; 82746; 82784; 82787; 82803; 82962; 82977; 83010; 83036; 83516; 83540; 83550; 83605; 83615; 83735; 83880; 83883; 84100; 84439; 84443; 84484; 85025; 85045; 85610; 85730; 86038; 86140; 86704; 86803; 86850; 86880; 86900; 86901; 86922; 87040; 87077; 87086; 87340; 87517; 93005; 93010; 93306-TC; 93971; 94640; 97162-GP; 99285-25; C9803-CS; J1644; P9047; P9058; Q5106; U0003; U0005

== ENCOUNTER 2022-11-02 13:46 | Inpatient (IN) | payer OTHER ==
[2022-11-02 17:06] LABS: EOS % 2.1 % (0-4.5); HEMOGLOBIN 10.5 GM/dL (10.7-15.3); LYMPH % 9.3 % (8-40); MCH 30.9 pg (25.7-33.7); MCHC 31.8 g/dl (32.0-36.0); MEAN CELL VOLUME 97.2 fl (80-96); MEAN PLT VOLUME 9.2 fl (7.5-11.1); NEUT % 76.6 % (42.8-82.8); PLATELET COUNT 168 10^3/uL (134-434); RDW 14.9 % (11.6-15.6); WHITE BLOOD COUNT 6.3 K/mm3 (4.0-10.0)
[2022-11-02 17:07] LABS: INR 3.24 (0.83-1.09); PROTHROMBIN TIME (PATIENT) 37.7 SEC (9.7-13.0)
[2022-11-02 17:09] LABS: ACTIVATED PTT 50.4 SECONDS (25.2-36.5)
[2022-11-02 17:28] LABS: ALBUMIN 2.4 g/dl (3.4-5.0); BLOOD UREA NITROGEN 52.4 mg/dL (7-18); CALCIUM 8.7 mg/dL (8.5-10.1)
[2022-11-02 17:32] LABS: CREATININE 2.1 mg/dL (0.55-1.3)
[2022-11-02 17:33] LABS: BILIRUBIN,TOTAL 0.5 mg/dL (0.2-1); TOT PROT 7.1 g/dl (6.4-8.2)
[2022-11-02] MEDS ORDERED: PANTOPRAZOLE SODIUM 40 MG VIAL IVPUSH ONE (18:55)
[2022-11-02 19:18] LABS: CALCIUM 8.9 mg/dL (8.5-10.1)
[2022-11-02 19:19] LABS: BLOOD UREA NITROGEN 52.3 mg/dL (7-18)
[2022-11-02 19:22] LABS: CREATININE 2.1 mg/dL (0.55-1.3)
[2022-11-02] MEDS ORDERED: PANTOPRAZOLE SODIUM 40 MG VIAL ONE (21:30)
[2022-11-03] MEDS ORDERED: ACETAMINOPHEN 1000 MG/100 ML BAG IVPB ONE (00:41)
[2022-11-03] MEDS ORDERED: OSELTAMIVIR PHOSPHATE 30 MG CAPSULE PO ONE (00:45)
[2022-11-03] MEDS ORDERED: ACETAMINOPHEN INJECTION 100 ML IVPB ONE (00:48)
[2022-11-03 08:16] LABS: EOS % 3.8 % (0-4.5); HEMATOCRIT 36.1 % (32.4-45.2); HEMOGLOBIN 11.4 GM/dL (10.7-15.3); LYMPH % 10.7 % (8-40); MCH 30.8 pg (25.7-33.7); MCHC 31.6 g/dl (32.0-36.0); MEAN CELL VOLUME 97.3 fl (80-96); MONO % 9.7 % (3.8-10.2); NEUT % 74.8 % (42.8-82.8); PLATELET COUNT 173 10^3/uL (134-434); RBC 3.71 M/mm3 (3.60-5.2); WHITE BLOOD COUNT 6.9 K/mm3 (4.0-10.0)
[2022-11-03 09:11] LABS: ALBUMIN 2.4 g/dl (3.4-5.0); ANION GAP 13 MMOL/L (8-16); BLOOD UREA NITROGEN 52.8 mg/dL (7-18); CALCIUM 8.7 mg/dL (8.5-10.1); CHLORIDE 107 mmol/L (98-107); CO2 25 mmol/L (21-32); CREATININE 1.9 mg/dL (0.55-1.3); GLUCOSE,RANDOM 95 mg/dL (74-106); MAGNESIUM 2.5 mg/dL (1.8-2.4); SGOT/AST 66 U/L (15-37); SGPT/ALT 41 U/L (13-61); SODIUM 145 mmol/L (136-145)
[2022-11-03 09:12] LABS: CHOLESTEROL 99 mg/dL (50-200); TOT PROT 6.7 g/dl (6.4-8.2); TRIGLYCERIDES 81 mg/dL (0-150)
[2022-11-03 09:21] LABS: ALK PHOS 421 U/L (45-117); BILIRUBIN,TOTAL 0.6 mg/dL (0.2-1); HDL CHOLESTEROL 42 mg/dL (40-60); LDL CHOLESTEROL (ONLY SJRH) 44 mg/dL (5-100)
[2022-11-03] MEDS ORDERED: OSELTAMIVIR PHOSPHATE 30 MG CAPSULE PO SCH (10:50)
[2022-11-03] MEDS: OSELTAMIVIR PHOSPHATE 30 MG CAPSULE PO SCH (14:45)
[2022-11-03] MEDS ORDERED: oxyCODONE HCL 5 MG TABLET ONE (18:05)
[2022-11-03] MEDS: oxyCODONE HCL 5 MG TABLET PO PRN (18:07)
[2022-11-03] MEDS ORDERED: ACETAMINOPHEN 325 MG TABLET (FP) PO PRN (20:14)
[2022-11-03] MEDS ORDERED: DEXTROSE 5%-NORMAL SALINE 1,000 ML IV SCH (20:15)
[2022-11-04] MEDS ORDERED: OSELTAMIVIR PHOSPHATE 30 MG CAPSULE PO SCH (10:00)
[2022-11-04 11:40] LABS: BASO % 0.9 % (0-2.0); EOS % 0.6 % (0-4.5); HEMATOCRIT 34.3 % (32.4-45.2); HEMOGLOBIN 10.9 GM/dL (10.7-15.3); MCH 30.9 pg (25.7-33.7); MCHC 31.9 g/dl (32.0-36.0); MEAN CELL VOLUME 96.9 fl (80-96); MEAN PLT VOLUME 8.9 fl (7.5-11.1); MONO % 8.9 % (3.8-10.2); NEUT % 76.6 % (42.8-82.8); PLATELET COUNT 164 10^3/uL (134-434); RBC 3.54 M/mm3 (3.60-5.2); RDW 14.6 % (11.6-15.6); WHITE BLOOD COUNT 7.4 K/mm3 (4.0-10.0)
[2022-11-04 11:46] LABS: INR 3.48 (0.83-1.09); PROTHROMBIN TIME (PATIENT) 40.5 SEC (9.7-13.0)
[2022-11-04 12:05] LABS: ALBUMIN 2.3 g/dl (3.4-5.0); BLOOD UREA NITROGEN 56.5 mg/dL (7-18); CALCIUM 8.5 mg/dL (8.5-10.1)
[2022-11-04 12:08] LABS: CREATININE 1.8 mg/dL (0.55-1.3)
[2022-11-04 12:10] LABS: BILIRUBIN,TOTAL 0.5 mg/dL (0.2-1); TOT PROT 6.6 g/dl (6.4-8.2)
[2022-11-04] MEDS ORDERED: oxyCODONE HCL 5 MG TABLET ONE (21:50)
[2022-11-04] MEDS: oxyCODONE HCL 5 MG TABLET PO PRN (21:57)
[2022-11-04] MEDS: OSELTAMIVIR PHOSPHATE 30 MG CAPSULE PO SCH (22:34)
[2022-11-05] MEDS ORDERED: oxyCODONE HCL 5 MG TABLET ONE ×2 (05:54→13:14)
[2022-11-05] MEDS: oxyCODONE HCL 5 MG TABLET PO PRN ×3 (05:58→22:50)
[2022-11-05] MEDS ORDERED: ACETAMINOPHEN 325 MG TABLET (FP) ONE (09:05)
[2022-11-05] MEDS: OSELTAMIVIR PHOSPHATE 30 MG CAPSULE PO SCH (09:47)
[2022-11-05] MEDS ORDERED: FUROSEMIDE 40 MG TABLET (FP) PO SCH (11:15)
[2022-11-05 11:16] LABS: INR 3.7 (0.83-1.09); PROTHROMBIN TIME (PATIENT) 43.1 SEC (9.7-13.0)
[2022-11-05] MEDS ORDERED: FUROSEMIDE 40 MG TABLET (FP) ONE (11:57)
[2022-11-06] MEDS: OSELTAMIVIR PHOSPHATE 30 MG CAPSULE PO SCH (09:39)
[2022-11-06] MEDS ORDERED: FUROSEMIDE 40 MG TABLET (FP) PO SCH (10:00)
[2022-11-06] MEDS ORDERED: ACETAMINOPHEN 1000 MG/100 ML BAG IVPB PRN (11:05)
[2022-11-06] MEDS: oxyCODONE HCL 5 MG TABLET PO PRN ×2 (13:10→23:19)
[2022-11-06] MEDS: ACETAMINOPHEN 325 MG TABLET (FP) PO PRN (18:44)
[2022-11-07] MEDS: oxyCODONE HCL 5 MG TABLET PO PRN ×3 (05:48→22:56)
[2022-11-07 09:10] LABS: BASO % 0.4 % (0-2.0); EOS % 7.7 % (0-4.5); HEMATOCRIT 35.2 % (32.4-45.2); HEMOGLOBIN 10.9 GM/dL (10.7-15.3); LYMPH % 20.7 % (8-40); MCH 30.5 pg (25.7-33.7); MCHC 30.9 g/dl (32.0-36.0); MEAN CELL VOLUME 98.8 fl (80-96); MEAN PLT VOLUME 8.6 fl (7.5-11.1); MONO % 5.2 % (3.8-10.2); PLATELET COUNT 142 10^3/uL (134-434); RBC 3.56 M/mm3 (3.60-5.2); WHITE BLOOD COUNT 5.7 K/mm3 (4.0-10.0)
[2022-11-07 09:18] LABS: PROTHROMBIN TIME (PATIENT) 50.7 SEC (9.7-13.0)
[2022-11-07] MEDS: OSELTAMIVIR PHOSPHATE 30 MG CAPSULE PO SCH (09:34)
[2022-11-07] MEDS: ACETAMINOPHEN 325 MG TABLET (FP) PO PRN (09:34)
[2022-11-07 09:58] LABS: INR 4.34 (0.83-1.09)
[2022-11-07] MEDS: ALBUTEROL SO4 2.5/IPRATROPIUM 0.5 INH SOL 3 ML VIAL.NEB. NEB SCH ×4 (11:16→23:39)
[2022-11-07] MEDS: hydrALAZINE HCL 25 MG TABLET (FP) PO SCH ×2 (13:53→21:26)
[2022-11-07] MEDS: INSULIN SLIDING SCALE (NOVOLOG) 1 VIAL SQ SCH (17:08)
[2022-11-07] MEDS ORDERED: ATORVASTATIN CA 80 MG TABLET (FP) PO SCH (22:00)
[2022-11-07] MEDS ORDERED: MELATONIN 5 MG TABLETS PO ONE (22:43)
[2022-11-08] MEDS: ALBUTEROL SO4 2.5/IPRATROPIUM 0.5 INH SOL 3 ML VIAL.NEB. NEB SCH ×5 (04:10→20:05)
[2022-11-08] MEDS: hydrALAZINE HCL 25 MG TABLET (FP) PO SCH ×3 (06:23→21:41)
[2022-11-08] MEDS: INSULIN SLIDING SCALE (NOVOLOG) 1 VIAL SQ SCH ×2 (06:27→17:15)
[2022-11-08] MEDS: INSULIN (LEVEMIR) 100 UNITS/ML UNITS SQ SCH (09:30)
[2022-11-08] MEDS: OSELTAMIVIR PHOSPHATE 30 MG CAPSULE PO SCH (09:30)
[2022-11-08] MEDS: FERROUS SO4 325 MG TABLET (FP) PO SCH (09:30)
[2022-11-08 10:54] LABS: INR 3.19 (0.83-1.09); PROTHROMBIN TIME (PATIENT) 37.1 SEC (9.7-13.0)
[2022-11-08] MEDS ORDERED: PHYTONADIONE 10 MG/1 ML AMP IVPB ONE (16:30)
[2022-11-09] MEDS: ALBUTEROL SO4 2.5/IPRATROPIUM 0.5 INH SOL 3 ML VIAL.NEB. NEB SCH ×6 (04:00→21:19)
[2022-11-09] MEDS: hydrALAZINE HCL 25 MG TABLET (FP) PO SCH ×2 (06:01→13:51)
[2022-11-09] MEDS: INSULIN SLIDING SCALE (NOVOLOG) 1 VIAL SQ SCH ×2 (06:01→17:22)
[2022-11-09] MEDS: FERROUS SO4 325 MG TABLET (FP) PO SCH (09:30)
[2022-11-09] MEDS: INSULIN (LEVEMIR) 100 UNITS/ML UNITS SQ SCH (09:30)
[2022-11-09] MEDS ORDERED: predniSONE 20 MG TABLET (UD) PO ONE (11:36)
[2022-11-09] MEDS ORDERED: FUROSEMIDE 40 MG TABLET (FP) PO ONE (11:43)
[2022-11-09 13:12] LABS: HEMATOCRIT 36.4 % (32.4-45.2); HEMOGLOBIN 11.5 GM/dL (10.7-15.3); MCH 30.4 pg (25.7-33.7); MCHC 31.6 g/dl (32.0-36.0); MEAN CELL VOLUME 96.1 fl (80-96); MEAN PLT VOLUME 8.4 fl (7.5-11.1); PLATELET COUNT 195 10^3/uL (134-434); RBC 3.79 M/mm3 (3.60-5.2); RDW 14.8 % (11.6-15.6); WHITE BLOOD COUNT 8.1 K/mm3 (4.0-10.0)
[2022-11-09 13:16] LABS: INR 1.5 (0.83-1.09); PROTHROMBIN TIME (PATIENT) 17.3 SEC (9.7-13.0)
[2022-11-09 13:32] LABS: CALCIUM 8.6 mg/dL (8.5-10.1)
[2022-11-09 13:33] LABS: ALBUMIN 2.5 g/dl (3.4-5.0)
[2022-11-09 13:36] LABS: CREATININE 1.1 mg/dL (0.55-1.3)
[2022-11-09 13:38] LABS: TOT PROT 7.3 g/dl (6.4-8.2)
[2022-11-09 13:41] LABS: BLOOD UREA NITROGEN 26.1 mg/dL (7-18)
[2022-11-09] MEDS: hydrALAZINE HCL 50 MG TABLET (FP) PO SCH (22:01)
[2022-11-09] MEDS: PIPERACILLIN/TAZOB 2.25 GM 2.25 GM in DEXTROSE 5%-WATER - 50 ML IVPB SCH (23:38)
[2022-11-10] MEDS: ALBUTEROL SO4 2.5/IPRATROPIUM 0.5 INH SOL 3 ML VIAL.NEB. NEB SCH ×7 (01:24→23:05)
[2022-11-10] MEDS: PIPERACILLIN/TAZOB 2.25 GM 2.25 GM in DEXTROSE 5%-WATER - 50 ML IVPB SCH ×4 (03:38→21:25)
[2022-11-10] MEDS: hydrALAZINE HCL 50 MG TABLET (FP) PO SCH ×3 (06:27→21:25)
[2022-11-10] MEDS: INSULIN SLIDING SCALE (NOVOLOG) 1 VIAL SQ SCH ×2 (06:49→16:54)
[2022-11-10] MEDS: FERROUS SO4 325 MG TABLET (FP) PO SCH (09:19)
[2022-11-10] MEDS: predniSONE 20 MG TABLET (UD) PO SCH (09:19)
[2022-11-10] MEDS: FUROSEMIDE 40 MG TABLET (FP) PO SCH (09:19)
[2022-11-10] MEDS: INSULIN (LEVEMIR) 100 UNITS/ML UNITS SQ SCH (09:20)
[2022-11-10] MEDS: PANTOPRAZOLE 40 MG TABLET PO SCH (11:20)
[2022-11-10 11:36] LABS: BASO % 0.2 % (0-2.0); EOS % 0.2 % (0-4.5); HEMOGLOBIN 10.5 GM/dL (10.7-15.3); LYMPH % 7.8 % (8-40); MCH 30.4 pg (25.7-33.7); MCHC 31.8 g/dl (32.0-36.0); MEAN CELL VOLUME 95.7 fl (80-96); MEAN PLT VOLUME 8.3 fl (7.5-11.1); MONO % 6.1 % (3.8-10.2); NEUT % 85.7 % (42.8-82.8); PLATELET COUNT 187 10^3/uL (134-434); RBC 3.45 M/mm3 (3.60-5.2); RDW 15.2 % (11.6-15.6); WHITE BLOOD COUNT 8.9 K/mm3 (4.0-10.0)
[2022-11-10 11:43] LABS: INR 1.37 (0.83-1.09); PROTHROMBIN TIME (PATIENT) 15.8 SEC (9.7-13.0)
[2022-11-10 12:03] LABS: CALCIUM 8.4 mg/dL (8.5-10.1)
[2022-11-10 12:05] LABS: BLOOD UREA NITROGEN 28.3 mg/dL (7-18)
[2022-11-10 12:06] LABS: ALBUMIN 2.2 g/dl (3.4-5.0)
[2022-11-10 12:07] LABS: CREATININE 1.2 mg/dL (0.55-1.3)
[2022-11-10 12:08] LABS: BILIRUBIN,TOTAL 0.6 mg/dL (0.2-1); TOT PROT 6.3 g/dl (6.4-8.2)
[2022-11-10] MEDS: WARFARIN NA 5 MG TABLET PO SCH (18:33)
[2022-11-11] MEDS: PIPERACILLIN/TAZOB 2.25 GM 2.25 GM in DEXTROSE 5%-WATER - 50 ML IVPB SCH ×4 (02:02→20:18)
[2022-11-11] MEDS: ALBUTEROL SO4 2.5/IPRATROPIUM 0.5 INH SOL 3 ML VIAL.NEB. NEB SCH ×6 (04:00→23:45)
[2022-11-11] MEDS: INSULIN SLIDING SCALE (NOVOLOG) 1 VIAL SQ SCH ×2 (06:28→17:24)
[2022-11-11] MEDS: hydrALAZINE HCL 50 MG TABLET (FP) PO SCH ×3 (06:52→21:08)
[2022-11-11] MEDS: FERROUS SO4 325 MG TABLET (FP) PO SCH (10:00)
[2022-11-11] MEDS: PANTOPRAZOLE 40 MG TABLET PO SCH (10:00)
[2022-11-11] MEDS: INSULIN (LEVEMIR) 100 UNITS/ML UNITS SQ SCH (10:00)
[2022-11-11] MEDS: FUROSEMIDE 40 MG TABLET (FP) PO SCH (10:00)
[2022-11-11] MEDS: predniSONE 20 MG TABLET (UD) PO SCH (10:00)
[2022-11-11] MEDS: ACETAMINOPHEN 325 MG TABLET (FP) PO PRN ×2 (10:02→18:08)
[2022-11-11 11:16] LABS: INR 1.23 (0.83-1.09); PROTHROMBIN TIME (PATIENT) 14.2 SEC (9.7-13.0)
[2022-11-11] MEDS: WARFARIN NA 5 MG TABLET PO SCH (18:08)
[2022-11-11] MEDS ORDERED: SODIUM CHLORIDE 0.45% 1,000 ML IV SCH (23:45)
[2022-11-12] MEDS: ACETAMINOPHEN 325 MG TABLET (FP) PO PRN ×2 (02:12→11:05)
[2022-11-12] MEDS: PIPERACILLIN/TAZOB 2.25 GM 2.25 GM in DEXTROSE 5%-WATER - 50 ML IVPB SCH ×4 (02:37→21:39)
[2022-11-12] MEDS: ALBUTEROL SO4 2.5/IPRATROPIUM 0.5 INH SOL 3 ML VIAL.NEB. NEB SCH ×2 (04:30→08:00)
[2022-11-12] MEDS: hydrALAZINE HCL 50 MG TABLET (FP) PO SCH ×3 (06:12→21:40)
[2022-11-12] MEDS: INSULIN SLIDING SCALE (NOVOLOG) 1 VIAL SQ SCH ×2 (06:12→17:34)
[2022-11-12] MEDS: INSULIN (LEVEMIR) 100 UNITS/ML UNITS SQ SCH ×2 (10:45→11:04)
[2022-11-12 10:48] LABS: INR 1.59 (0.83-1.09); PROTHROMBIN TIME (PATIENT) 18.4 SEC (9.7-13.0)
[2022-11-12] MEDS: PANTOPRAZOLE 40 MG TABLET PO SCH ×2 (11:00→11:03)
[2022-11-12] MEDS: predniSONE 20 MG TABLET (UD) PO SCH (11:01)
[2022-11-12 11:03] LABS: BLOOD UREA NITROGEN 34.4 mg/dL (7-18); CALCIUM 7.9 mg/dL (8.5-10.1)
[2022-11-12] MEDS: FERROUS SO4 325 MG TABLET (FP) PO SCH (11:03)
[2022-11-12] MEDS: ENOXAPARIN NA (PORCINE) 60 MG/0.6 ML DISP.SYRIN SQ SCH ×2 (11:03→21:41)
[2022-11-12 11:05] LABS: CREATININE 1.6 mg/dL (0.55-1.3)
[2022-11-12] MEDS: oxyCODONE HCL 5 MG TABLET PO PRN ×2 (14:53→21:40)
[2022-11-12] MEDS: WARFARIN NA 5 MG TABLET PO SCH (17:26)
[2022-11-13] MEDS: PIPERACILLIN/TAZOB 2.25 GM 2.25 GM in DEXTROSE 5%-WATER - 50 ML IVPB SCH ×4 (02:55→21:44)
[2022-11-13] MEDS: oxyCODONE HCL 5 MG TABLET PO PRN ×2 (02:55→14:22)
[2022-11-13] MEDS: hydrALAZINE HCL 50 MG TABLET (FP) PO SCH ×3 (05:56→21:45)
[2022-11-13] MEDS: INSULIN (LEVEMIR) 100 UNITS/ML UNITS SQ SCH (05:59)
[2022-11-13] MEDS: INSULIN SLIDING SCALE (NOVOLOG) 1 VIAL SQ SCH ×2 (05:59→16:46)
[2022-11-13] MEDS: ENOXAPARIN NA (PORCINE) 60 MG/0.6 ML DISP.SYRIN SQ SCH ×2 (09:48→21:45)
[2022-11-13] MEDS: predniSONE 20 MG TABLET (UD) PO SCH (09:48)
[2022-11-13] MEDS: FERROUS SO4 325 MG TABLET (FP) PO SCH (09:48)
[2022-11-13] MEDS: PANTOPRAZOLE 40 MG TABLET PO SCH (09:48)
[2022-11-13] MEDS: WARFARIN NA 5 MG TABLET PO SCH (18:00)
[2022-11-13] MEDS: ACETAMINOPHEN 325 MG TABLET (FP) PO PRN (18:00)
[2022-11-14] MEDS: oxyCODONE HCL 5 MG TABLET PO PRN ×3 (00:07→21:34)
[2022-11-14] MEDS: PIPERACILLIN/TAZOB 2.25 GM 2.25 GM in DEXTROSE 5%-WATER - 50 ML IVPB SCH ×4 (03:07→21:33)
[2022-11-14] MEDS: ACETAMINOPHEN 325 MG TABLET (FP) PO PRN ×2 (04:13→14:03)
[2022-11-14] MEDS: INSULIN (LEVEMIR) 100 UNITS/ML UNITS SQ SCH ×2 (06:35→21:33)
[2022-11-14] MEDS: INSULIN SLIDING SCALE (NOVOLOG) 1 VIAL SQ SCH ×3 (06:36→21:34)
[2022-11-14] MEDS: hydrALAZINE HCL 50 MG TABLET (FP) PO SCH ×3 (06:38→21:33)
[2022-11-14] MEDS: ENOXAPARIN NA (PORCINE) 60 MG/0.6 ML DISP.SYRIN SQ SCH (09:01)
[2022-11-14] MEDS: PANTOPRAZOLE 40 MG TABLET PO SCH (09:02)
[2022-11-14] MEDS: FERROUS SO4 325 MG TABLET (FP) PO SCH (09:02)
[2022-11-14] MEDS: predniSONE 20 MG TABLET (UD) PO SCH (09:02)
[2022-11-14 10:44] LABS: ANION GAP 20 MMOL/L (8-16); BLOOD UREA NITROGEN 24.5 mg/dL (7-18); CALCIUM 6.9 mg/dL (8.5-10.1); CHLORIDE 90 mmol/L (98-107); CO2 25 mmol/L (21-32); CREATININE 1.4 mg/dL (0.55-1.3); GLUCOSE,RANDOM 650 mg/dL (74-106); SODIUM 135 mmol/L (136-145)
[2022-11-14 10:45] LABS: PROTHROMBIN TIME (PATIENT) 61.8 SEC (9.7-13.0)
[2022-11-14 11:02] LABS: INR 5.28 (0.83-1.09)
[2022-11-14] MEDS ORDERED: POTASSIUM CHLORIDE ORAL LIQUID 20 MEQ/15 ML PO ONE (12:06)
[2022-11-14] MEDS ORDERED: INSULIN (LEVEMIR) 100 UNITS/ML UNITS SQ SCH (22:00)
[2022-11-15] MEDS: PIPERACILLIN/TAZOB 2.25 GM 2.25 GM in DEXTROSE 5%-WATER - 50 ML IVPB SCH ×4 (03:10→20:43)
[2022-11-15] MEDS: INSULIN SLIDING SCALE (NOVOLOG) 1 VIAL SQ SCH ×2 (06:35→16:08)
[2022-11-15] MEDS: INSULIN (LEVEMIR) 100 UNITS/ML UNITS SQ SCH (06:35)
[2022-11-15] MEDS: hydrALAZINE HCL 50 MG TABLET (FP) PO SCH ×3 (06:35→21:15)
[2022-11-15] MEDS: FERROUS SO4 325 MG TABLET (FP) PO SCH (09:36)
[2022-11-15] MEDS: predniSONE 20 MG TABLET (UD) PO SCH (09:36)
[2022-11-15] MEDS: PANTOPRAZOLE 40 MG TABLET PO SCH (09:46)
[2022-11-15 10:55] LABS: PROTHROMBIN TIME (PATIENT) 68.7 SEC (9.7-13.0)
[2022-11-15 11:26] LABS: BLOOD UREA NITROGEN 27.7 mg/dL (7-18)
[2022-11-15 11:29] LABS: CREATININE 1.4 mg/dL (0.55-1.3)
[2022-11-15 11:37] LABS: CALCIUM 8.4 mg/dL (8.5-10.1)
[2022-11-15 12:04] LABS: INR 5.87 (0.83-1.09)
[2022-11-15] MEDS: oxyCODONE HCL 5 MG TABLET PO PRN (14:51)
[2022-11-15 15:01] VITALS: BMI 26.7
[2022-11-15 17:04] VITALS: RESP 18
[2022-11-16] MEDS: PIPERACILLIN/TAZOB 2.25 GM 2.25 GM in DEXTROSE 5%-WATER - 50 ML IVPB SCH ×4 (02:43→22:00)
[2022-11-16] MEDS: hydrALAZINE HCL 50 MG TABLET (FP) PO SCH ×3 (05:28→22:00)
[2022-11-16] MEDS: oxyCODONE HCL 5 MG TABLET PO PRN ×2 (05:29→11:47)
[2022-11-16] MEDS: INSULIN SLIDING SCALE (NOVOLOG) 1 VIAL SQ SCH ×3 (06:08→16:38)
[2022-11-16] MEDS: predniSONE 20 MG TABLET (UD) PO SCH (10:14)
[2022-11-16] MEDS: FERROUS SO4 325 MG TABLET (FP) PO SCH (10:15)
[2022-11-16] MEDS: PANTOPRAZOLE 40 MG TABLET PO SCH (10:15)
[2022-11-16 12:22] LABS: BASO % 0.3 % (0-2.0); EOS % 1.1 % (0-4.5); HEMATOCRIT 40.4 % (32.4-45.2); HEMOGLOBIN 12.8 GM/dL (10.7-15.3); LYMPH % 5.4 % (8-40); MCH 30.5 pg (25.7-33.7); MCHC 31.7 g/dl (32.0-36.0); MEAN CELL VOLUME 96.3 fl (80-96); MEAN PLT VOLUME 8.5 fl (7.5-11.1); MONO % 3.5 % (3.8-10.2); NEUT % 89.7 % (42.8-82.8); PLATELET COUNT 228 10^3/uL (134-434); RDW 15.1 % (11.6-15.6); WHITE BLOOD COUNT 14.7 K/mm3 (4.0-10.0)
[2022-11-16 12:26] LABS: PROTHROMBIN TIME (PATIENT) 51.3 SEC (9.7-13.0)
[2022-11-16 12:38] LABS: BLOOD UREA NITROGEN 29.5 mg/dL (7-18); CALCIUM 8.5 mg/dL (8.5-10.1)
[2022-11-16 12:42] LABS: CREATININE 1.3 mg/dL (0.55-1.3)
[2022-11-16 12:43] LABS: BILIRUBIN,TOTAL 0.5 mg/dL (0.2-1)
[2022-11-16 12:44] LABS: TOT PROT 6.4 g/dl (6.4-8.2)
[2022-11-16 13:01] LABS: INR 4.39 (0.83-1.09)
[2022-11-16] MEDS: WARFARIN NA 5 MG TABLET PO SCH (17:05)
[2022-11-16 22:00] VITALS: BP 142/74; PULSE 96; TEMP 98.4
== END 2022-11-17 00:35 | DRG 193 ==
LOC: JER 13:46 → JERBED 18:23 → J5S 11-05 18:38
PROVIDERS: ADMIT Internal Medicine; ATTEND Internal Medicine
DX: J10.1 Influenza due to other identified influenza virus with other respiratory manifestations (principal); N18.6 End stage renal disease; I50.32 Chronic diastolic (congestive) heart failure; I13.2 Hypertensive heart and chronic kidney disease with heart failure and with stage 5 chronic kidney disease, or end stage renal disease; I24.8 Other forms of acute ischemic heart disease; I48.92 Unspecified atrial flutter; D68.9 Coagulation defect, unspecified; K76.6 Portal hypertension; E87.0 Hyperosmolality and hypernatremia; N17.9 Acute kidney failure, unspecified; E11.22 Type 2 diabetes mellitus with diabetic chronic kidney disease; N18.9 Chronic kidney disease, unspecified; E78.5 Hyperlipidemia, unspecified; J44.9 Chronic obstructive pulmonary disease, unspecified; E03.9 Hypothyroidism, unspecified; Z99.2 Dependence on renal dialysis; Z95.0 Presence of cardiac pacemaker; Z79.4 Long term (current) use of insulin; R19.7 Diarrhea, unspecified; D64.9 Anemia, unspecified; K74.60 Unspecified cirrhosis of liver; M79.7 Fibromyalgia; F03.90 Unspecified dementia, unspecified severity, without behavioral disturbance, psychotic disturbance, mood disturbance, and anxiety; Z79.01 Long term (current) use of anticoagulants; K31.89 Other diseases of stomach and duodenum; J18.9 Pneumonia, unspecified organism; M79.89 Other specified soft tissue disorders; E11.65 Type 2 diabetes mellitus with hyperglycemia
CPT/HCPCS: 0241U-QW; 36415; 70450-TC; 71045-TC-FY; 76700-TC; 80048; 80053; 80061; 82272; 82962; 83605; 83735; 84484; 85025; 85027; 85610; 85730; 86850; 86900; 86901; 87040; 93005; 93010; 93971; 94640; 97162-GP; 99285-25; C9803-CS; U0003; U0005

== ENCOUNTER 2022-11-27 18:13 | Inpatient (IN) | payer OTHER ==
[2022-11-27] MEDS ORDERED: SODIUM CHLORIDE IV ONE (20:33)
[2022-11-27 22:12] LABS: EPI CELLS >36 /uL (0-25.1); HYALINE CASTS 2 /uL (0-3.1); URINE APPEARANCE TURBID; URINE BACTERIA 334 /uL (0-1359); URINE BILIRUBIN NEGATIVE (NEGATIVE); URINE COLOR DK YELLOW; URINE GLUCOSE (UA) NEGATIVE (NEGATIVE); URINE KETONE TRACE (NEGATIVE); URINE LEUK ESTERASE 1+ (NEGATIVE); URINE NITRITE NEGATIVE (NEGATIVE); URINE PROTEIN 2+ (NEGATIVE); URINE RBC 27 /uL (0-23.9); URINE UROBILINOGEN 0.2 mg/dL (0.2-1.0); URINE WBC 263 /uL (0-25.8)
[2022-11-27 22:18] LABS: VENOUS BASE EXCESS 2.6 mmol/L (-2-2); VENOUS O2 SATURATION 39.4 % (70-80); VENOUS PCO2 42.2 mmHg (38-52); VENOUS PH 7.428 (7.310-7.410)
[2022-11-27 22:19] LABS: HEMATOCRIT 35.6 % (32.4-45.2); HEMOGLOBIN 11.6 GM/dL (10.7-15.3); MCH 30.8 pg (25.7-33.7); MCHC 32.7 g/dl (32.0-36.0); MEAN PLT VOLUME 9.3 fl (7.5-11.1); PLATELET COUNT 282 10^3/uL (134-434); RBC 3.79 M/mm3 (3.60-5.2); RDW 15.6 % (11.6-15.6); WHITE BLOOD COUNT 20.8 K/mm3 (4.0-10.0)
[2022-11-27] MEDS ORDERED: FAMOTIDINE 20 MG/50 ML IVPB 20 MG/50 ML MG IVPB ONE ×2 (22:30→22:32)
[2022-11-27 22:31] LABS: YEAST PRESENT (NEGATIVE)
[2022-11-27 22:34] LABS: CHLORIDE 101 mmol/L (98-107); SODIUM 135 mmol/L (136-145)
[2022-11-27] MEDS ORDERED: CEFOTAXIME SODIUM 2,000 MG in DEXTROSE 5%-WATER - 50 ML IVPB ONE (22:34)
[2022-11-27 22:36] LABS: BLOOD UREA NITROGEN 40.8 mg/dL (7-18); CALCIUM 7.5 mg/dL (8.5-10.1)
[2022-11-27 22:37] LABS: ALBUMIN 1.8 g/dl (3.4-5.0); CO2 22 mmol/L (21-32); GLUCOSE,RANDOM 125 mg/dL (74-106)
[2022-11-27 22:40] LABS: CREATININE 2.7 mg/dL (0.55-1.3); PROTHROMBIN TIME (PATIENT) 107.7 SEC (9.7-13.0); SGOT/AST 83 U/L (15-37); SGPT/ALT 37 U/L (13-61)
[2022-11-27 22:41] LABS: BILIRUBIN,TOTAL 0.6 mg/dL (0.2-1); TOT PROT 6.2 g/dl (6.4-8.2)
[2022-11-27 22:43] LABS: INR 9.16 (0.83-1.09)
[2022-11-27 22:48] LABS: LACTIC ACID 5.2 mmol/L (0.4-2.0)
[2022-11-27] MEDS ORDERED: MEROPENEM 1 GM in DEXTROSE 5%-WATER 100 ML IVPB ONE (22:53)
[2022-11-27] MEDS: LACTATED RINGERS SOLUTION 1,000 ML/1,000 ML INFUS.BAG IV SCH (23:04)
[2022-11-27] MEDS ORDERED: MEROPENEM 1 GM VIAL (RESTRICTED TO ID) IVPB ONE (23:05)
[2022-11-27 23:10] LABS: LIPASE 83 U/L (73-393)
[2022-11-27 23:20] LABS: ANISOCYTOSIS 1+; MACROCYTOSIS 1+; TARGET CELLS 1+
[2022-11-27 23:23] LABS: ANION GAP 11 MMOL/L (8-16)
[2022-11-27 23:25] LABS: ALK PHOS 360 U/L (45-117)
[2022-11-27] MEDS ORDERED: HYDROmorphone HCL CARPU-JECT 2 MG/1 ML DISP.SYRIN IVPUSH ONE (23:59)
[2022-11-28] MEDS ORDERED: HYDROmorphone HCl 2 MG/ML VIAL ONE (00:08)
[2022-11-28 03:00] LABS: CALCIUM 7.3 mg/dL (8.5-10.1)
[2022-11-28 03:01] LABS: BLOOD UREA NITROGEN 43.6 mg/dL (7-18)
[2022-11-28 03:04] LABS: CREATININE 2.7 mg/dL (0.55-1.3)
[2022-11-28 03:35] LABS: LACTIC ACID 5.9 mmol/L (0.4-2.0)
[2022-11-28] MEDS: OCTREOTIDE ACETATE 200 MCG, OCTREOTIDE ACETATE 1,000 MCG in DEXTROSE 5%-WATER - 496 ML IVPB SCH (05:00)
[2022-11-28] MEDS: PANTOPRAZOLE SODIUM 160 MG in SODIUM CHLORIDE 290 ML IVPB SCH ×2 (05:00→14:53)
[2022-11-28] MEDS ORDERED: LIDOCAINE HCL 2% JELLY 11 ML TP ONE (05:15)
[2022-11-28 09:50] LABS: HEMATOCRIT 29.9 % (32.4-45.2); HEMOGLOBIN 9.7 GM/dL (10.7-15.3); MCH 30.7 pg (25.7-33.7); MCHC 32.4 g/dl (32.0-36.0); MEAN CELL VOLUME 94.8 fl (80-96); PLATELET COUNT 242 10^3/uL (134-434); RBC 3.16 M/mm3 (3.60-5.2); WHITE BLOOD COUNT 22.2 K/mm3 (4.0-10.0)
[2022-11-28 11:08] LABS: ANISOCYTOSIS 1+; MACROCYTOSIS 0; OVALOCYTE 1+
[2022-11-28] MEDS ORDERED: PHYTONADIONE 10 MG/1 ML AMP ONE (11:50)
[2022-11-28] MEDS ORDERED: PHYTONADIONE 10 MG/1 ML AMP IVPB ONE (12:30)
[2022-11-28 13:38] LABS: PROTHROMBIN TIME (PATIENT) 138.3 SEC (9.7-13.0)
[2022-11-28 13:39] LABS: INR 11.7 (0.83-1.09)
[2022-11-28] MEDS ORDERED: PIPERACILLIN/TAZOB 2.25 GM 2.25 GM/50 ML BAG IVPB ONE (19:19)
[2022-11-28] MEDS: PIPERACILLIN/TAZOB 2.25 GM 2.25 GM in DEXTROSE 5%-WATER - 50 ML IVPB SCH (19:26)
[2022-11-28] MEDS: LACTATED RINGERS SOLUTION 1,000 ML/1,000 ML INFUS.BAG IV SCH (23:24)
[2022-11-29] MEDS: PANTOPRAZOLE SODIUM 160 MG in SODIUM CHLORIDE 290 ML IVPB SCH ×3 (01:19→18:45)
[2022-11-29] MEDS ORDERED: PIPERACILLIN/TAZOB 2.25 GM 2.25 GM/50 ML BAG IVPB ONE ×2 (03:42→09:00)
[2022-11-29] MEDS: PIPERACILLIN/TAZOB 2.25 GM 2.25 GM in DEXTROSE 5%-WATER - 50 ML IVPB SCH ×3 (03:48→17:08)
[2022-11-29] MEDS: OCTREOTIDE ACETATE 200 MCG, OCTREOTIDE ACETATE 1,000 MCG in DEXTROSE 5%-WATER - 496 ML IVPB SCH (08:10)
[2022-11-29 09:40] LABS: BASO % 0.1 % (0-2.0); EOS % 0.1 % (0-4.5); HEMATOCRIT 24.3 % (32.4-45.2); LYMPH % 8.4 % (8-40); MCHC 33.1 g/dl (32.0-36.0); MEAN CELL VOLUME 93.6 fl (80-96); MEAN PLT VOLUME 9.4 fl (7.5-11.1); MONO % 3.5 % (3.8-10.2); NEUT % 87.9 % (42.8-82.8); PLATELET COUNT 214 10^3/uL (134-434); RBC 2.59 M/mm3 (3.60-5.2); RDW 15.8 % (11.6-15.6); WHITE BLOOD COUNT 18.4 K/mm3 (4.0-10.0)
[2022-11-29 09:45] LABS: CHLORIDE 102 mmol/L (98-107); SODIUM 137 mmol/L (136-145)
[2022-11-29 09:48] LABS: INR 1.83 (0.83-1.09); PROTHROMBIN TIME (PATIENT) 21.2 SEC (9.7-13.0)
[2022-11-29 09:50] LABS: ALBUMIN 1.6 g/dl (3.4-5.0); ANION GAP 10 MMOL/L (8-16); BLOOD UREA NITROGEN 47.9 mg/dL (7-18); CO2 24 mmol/L (21-32); GLUCOSE,RANDOM 141 mg/dL (74-106); MAGNESIUM 3.8 mg/dL (1.8-2.4)
[2022-11-29 10:18] LABS: ALK PHOS 289 U/L (45-117); BILIRUBIN,TOTAL 0.7 mg/dL (0.2-1); CALCIUM 6.9 mg/dL (8.5-10.1); CREATININE 3.3 mg/dL (0.55-1.3); SGOT/AST 426 U/L (15-37); SGPT/ALT 177 U/L (13-61); TOT PROT 4.9 g/dl (6.4-8.2)
[2022-11-29] MEDS: LACTATED RINGERS SOLUTION 1,000 ML/1,000 ML INFUS.BAG IV SCH (17:11)
[2022-11-29] MEDS ORDERED: SODIUM BICARBONATE 8.4% 50 MEQ/50 ML DISP.SYRIN IVPUSH ONE (18:46)
[2022-11-29] MEDS ORDERED: CALCIUM GLUCONATE IN NACL 1 GM/50 ML BAG IVPB ONE (19:15)
[2022-11-29] MEDS ORDERED: SODIUM BICARBONATE 8.4% 50 MEQ/50 ML VIAL ONE (19:19)
[2022-11-29] MEDS: LACTULOSE 20 GM/30 ML UDC (FOR RECTAL USE ONLY) PR SCH (20:13)
[2022-11-30] MEDS: PIPERACILLIN/TAZOB 2.25 GM 2.25 GM in DEXTROSE 5%-WATER - 50 ML IVPB SCH ×3 (01:06→17:25)
[2022-11-30] MEDS: LACTULOSE 20 GM/30 ML UDC (FOR RECTAL USE ONLY) PR SCH (01:17)
[2022-11-30] MEDS: OCTREOTIDE ACETATE 200 MCG, OCTREOTIDE ACETATE 1,000 MCG in DEXTROSE 5%-WATER - 496 ML IVPB SCH ×2 (05:00→10:05)
[2022-11-30] MEDS: PANTOPRAZOLE SODIUM 160 MG in SODIUM CHLORIDE 290 ML IVPB SCH (05:45)
[2022-11-30 08:12] LABS: BASO % 0.2 % (0-2.0); EOS % 0.2 % (0-4.5); HEMATOCRIT 22.4 % (32.4-45.2); HEMOGLOBIN 7.4 GM/dL (10.7-15.3); LYMPH % 6.3 % (8-40); MCH 30.6 pg (25.7-33.7); MCHC 32.9 g/dl (32.0-36.0); MEAN CELL VOLUME 92.8 fl (80-96); MEAN PLT VOLUME 8.8 fl (7.5-11.1); MONO % 3.1 % (3.8-10.2); NEUT % 90.2 % (42.8-82.8); PLATELET COUNT 185 10^3/uL (134-434); RBC 2.41 M/mm3 (3.60-5.2); RDW 15.8 % (11.6-15.6); WHITE BLOOD COUNT 19.5 K/mm3 (4.0-10.0)
[2022-11-30 08:22] LABS: CHLORIDE 106 mmol/L (98-107); SODIUM 139 mmol/L (136-145)
[2022-11-30 08:26] LABS: GLUCOSE,RANDOM 178 mg/dL (74-106)
[2022-11-30 08:27] LABS: ANION GAP 4 MMOL/L (8-16); BLOOD UREA NITROGEN 54.5 mg/dL (7-18); CO2 28 mmol/L (21-32)
[2022-11-30 08:29] LABS: CREATININE 3.3 mg/dL (0.55-1.3); SGPT/ALT 61 U/L (13-61)
[2022-11-30 08:30] LABS: BILIRUBIN,TOTAL 0.3 mg/dL (0.2-1); SGOT/AST 120 U/L (15-37)
[2022-11-30 08:32] LABS: ALBUMIN 0.7 g/dl (3.4-5.0); ALK PHOS 119 U/L (45-117); CALCIUM 5.9 mg/dL (8.5-10.1); TOT PROT 2.2 g/dl (6.4-8.2)
[2022-11-30] MEDS ORDERED: PANTOPRAZOLE SODIUM 160 MG in SODIUM CHLORIDE 290 ML IVPB SCH (09:01)
[2022-11-30] MEDS: MORPHINE SULFATE/0.9% NACL/PF 100 MG/100 ML BAG IVPB SCH (12:16)
[2022-11-30 15:36] VITALS: BMI 29.9
[2022-11-30] MEDS: PANTOPRAZOLE SODIUM 40 MG VIAL IVPUSH SCH (23:29)
[2022-12-01] MEDS: PIPERACILLIN/TAZOB 2.25 GM 2.25 GM in DEXTROSE 5%-WATER - 50 ML IVPB SCH ×2 (03:40→10:11)
[2022-12-01] MEDS: MORPHINE SULFATE/0.9% NACL/PF 100 MG/100 ML BAG IVPB SCH (10:11)
[2022-12-01] MEDS: PANTOPRAZOLE SODIUM 40 MG VIAL IVPUSH SCH ×2 (10:11→21:04)
[2022-12-02] MEDS: MORPHINE SULFATE/0.9% NACL/PF 100 MG/100 ML BAG IVPB SCH (10:50)
[2022-12-02] MEDS: PANTOPRAZOLE SODIUM 40 MG VIAL IVPUSH SCH ×2 (11:32→23:03)
[2022-12-02 15:15] VITALS: RESP 18
[2022-12-03 05:11] VITALS: BP 78/47; PULSE 77; TEMP 97.5
== END 2022-12-03 04:05 | disposition expired | DRG 871 ==
LOC: JER 18:13 → JERBED 22:47 → J4W 11-29 14:28
PROVIDERS: ADMIT Internal Medicine; ATTEND Internal Medicine
PROC: 30233L1 Transfusion of Nonautologous Fresh Plasma into Peripheral Vein, Percutaneous Approach (ICD-10-PCS; principal; 2022-11-28)
PROC: 30233K1 Transfusion of Nonautologous Frozen Plasma into Peripheral Vein, Percutaneous Approach (ICD-10-PCS; 2022-11-28)
DX: A41.9 Sepsis, unspecified organism (principal); G92.8 Other toxic encephalopathy; I50.33 Acute on chronic diastolic (congestive) heart failure; N18.6 End stage renal disease; N39.0 Urinary tract infection, site not specified; R18.8 Other ascites; N17.9 Acute kidney failure, unspecified; K92.2 Gastrointestinal hemorrhage, unspecified; K76.6 Portal hypertension; I13.2 Hypertensive heart and chronic kidney disease with heart failure and with stage 5 chronic kidney disease, or end stage renal disease; D68.9 Coagulation defect, unspecified; E11.9 Type 2 diabetes mellitus without complications; E03.9 Hypothyroidism, unspecified; K74.60 Unspecified cirrhosis of liver; K76.82 Hepatic encephalopathy; D64.9 Anemia, unspecified; K72.10 Chronic hepatic failure without coma; T68.XXXA Hypothermia, initial encounter
CPT/HCPCS: 0241U-QW; 36415; 36430; 70450-TC; 71045-TC-FY; 80048; 80053; 81003; 82140; 82272; 82803; 82962; 83605; 83690; 83735; 83880; 84484; 85025; 85610; 85730; 86850; 86900; 86901; 87040; 87077; 87086; 87186; 93005; 93010; 99285-25; P9017